=== PATIENT | male | born 1945 | race Two or more races ===

== ENCOUNTER 2022-10-08 08:37 | Outpatient (AMB) | payer OTHER, SELFPAY ==
--- NOTE | 2022-10-08 08:41 | A.OFFPC_ITS ---
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: No Accompanied by: Self / Same As Patient Allergies No Known Allergies Allergy (Verified 10/08/22 08:59) Medication List - Last Reconciled 10/08/22 by Ivonne Lee MD atorvastatin 20 mg PO DAILY candesartan 16 mg PO DAILY metformin ER 250 mg PO QPM nifedipine ER 30 mg PO DAILY polyethylene glycol 3350 (Gavilax) 17 grams PO DAILY PRN timolol maleate 0.5% 1 drp ophthalmic (eye) BID Tobacco use date assessed: 10/08/22 Fall risk assessment: No Falls in past year Last assessed Fall Risk: 10/08/22 Dental Screening Dental Screen Date: 10/08/22 Did you have a dental visit in the last 12 months?: Yes Did you have a dental problem in the last 6 months where you did not have access to dental care?: No Was dental information given to patient?: Patient has dentist HPI HPI Comments History of Present Illness Details This is a 77-year-old male with diabetes mellitus type 2, hypertension, hyperlipidemia and constipation that comes today to establish care. A1c within goal. Blood pressure stable. Lipid panel will be order and his LDL goal should be less than 70. Constipation well control with MiraLax as needed. Has mild major depression aggravated by taking care of his who has dementia. I will start him on sertraline and refer him to counseling. Has history of colon cancer few years ago that was stage III and has appointment with Gastroenterology at [facility] in a few months for this matter. Has renal calculi follow by Urology. [facility] Surgical History (Updated 10/08/22 @ 09:16 by Ivonne Lee MD) H/O lithotripsy History of knee surgery History of tonsillectomy Family History Father Cancer Mother Alzheimer disease Family/Other Mental health disorder Social History (Updated 10/08/22 @ 09:06 by Ivonne Lee MD) Housing: Apartment Alcohol intake: former Patient Tobacco Use Status: Never used Tobacco e-Cigarette/Vaping Use: Never Used Second Hand Smoke Exposure: No service: No Current occupational status: unemployed Cognitive needs: No Hearing needs: No Vision needs: No Questionnaire PHQ-9 Over the last 2 weeks, how often have you been bothered by any of the following problems? 1. Little interest or pleasure in doing things: not at all 2. Feeling down, depressed, or hopeless: more than half the days 3. Trouble falling or staying asleep, or sleeping too much: several days 4. Feeling tired or having little energy: not at all 5. Poor appetite or overeating: not at all 6. Feeling bad about yourself - or that you are a failure or have let yourself or your family down: not at all 7. Trouble concentrating on things, such as reading the newspaper or watching television: not at all 8. Moving or speaking so slowly that other people could have noticed. Or the opposite - being so fidgety or restless that you have been moving around a lot more than usual: several days 9. Thoughts that you would be better off or of hurting yourself in some way: not at all Total score: 4 Depression Screening Interpretation: Positive Depression Screening Follow-up: Ex isting condition 96274 - PHQ-9 Billing: Yes Source: Developed by Drs. Trip Mcgee, Talia Valenzuela, Ham Dove and colleagues, with an educational laurie from [employer]. Thrive Questionnaire Date Thrive assessed: 10/08/22 I am a: Patient What is your living situation today?: I have a steady place to live Within the past 12 months, did the food you bought not last and you didn't have the money to get more?: Never true Within the past 12 months, did you worry whether your food would run out before you got money to buy more?: Never true Do you have trouble paying for medicines?: No Do you have trouble getting transportation to medical appointments?: No Do you have trouble paying your heating and electricity bill?: No Do you have trouble taking care of your child, family member or friend?: No Do you have trouble with day-to-day activities such as bathing, preparing meals, shopping, managing finances, etc.?: No Are you currently unemployed and looking for a job?: No Are you interested in more education?: No Please select the resources that you would like help with: None Currently or been in a relationship where the following occur: no concerns reported AUDIT C Alcohol Use Questionnaire (AUDIT-C) 1. How often do you have a drink containing alcohol?: Never Total Score: 0 MARLIN-7 AMB Questionnaire MARLIN-7 Date MARLIN - 7 assessed: 10/08/22 Feeling nervous, anxious, or on edge: 2 = More than half the days Not being able to stop or control worryin = Not at all Worrying too much about different things: 2 = More than half the days Trouble relaxin = Not at all Being so restless that it is hard to sit still: 0 = Not at all Becoming easily annoyed or irritable: 0 = Not at all Feeling afraid as if something awful might happen: 0 = Not at all Total MARLIN-7 score (0-4 normal; 5-9 mild; 10-14 moderate; 15-21 severe): 4 Source: Developed by Drs. Trip Mcgee, Talia Valenzuela, Ham Dove and colleagues, with an educational laurie from [employer]. MARLIN-7 Assessment Billing MARLIN-7 Assessment Tool: MARLIN-7 Assessment 96157 Review of Systems Const All systems reviewed & are unremarkable except as noted in HPI and below Eyes Reports no additional complaints, Denies change in vision and Denies other visual disturbances Card Denies chest pain at rest, Denies chest pain with activity, Denies edema, Denies irregular heart rhythm, Denies claudication, Reports leg edema, Denies dyspnea, Denies dyspnea on exertion, Denies orthopnea, Denies paroxysmal nocturnal dyspnea and Denies slow heart rate Resp Denies cough, Denies dyspnea and Denies dyspnea on exertion GI Denies abdominal pain, Denies change in bowel habits, Reports constipation, Denies excessive flatus, Denies nausea and Denies vomiting Denies urinary hesitancy, Denies urinary incontinence and Denies urinary urgency Musc Denies abnormal gait, Denies atrophy, Denies deformity and Denies limited range of motion Skin/Breast Denies bleeding lesions, Denies changing lesions and Denies rash Neuro Denies abnormal gait and Denies lack of coordination Physical exam (Primary Care) Vital Signs: Last Vital Signs BP 132/80 10/08/22 08:45 BMI result Body Mass Index 28.6 Tobacco/Smoking Status: Tobacco use Status Tobacco use date assessed 10/08/22 10/08/22 08:56 Patient Tobacco Use Status Never used Tobacco 10/08/22 09:06 e-Cigarette/Vaping Use Never Used 10/08/22 09:06 PHQ-9: PHQ-9 Score PHQ-9: Total score 4 10/08/22 09:09 Depression Screening Interpretation: Positive Depression Screening Follow-up: Existing condition Thrive Assessment: Date of Thrive Assessment Date Thrive assessed 10/08/22 10/08/22 08:56 Currently or been in a relationship where the following occur: no concerns reported Eyes General: appearance normal, both eyes and all related structures Eyelids: Yes eyelids normal Conjunctivae: conjunctivae normal Neck Neck: Yes normal visual inspection and Yes supple Resp Effort & Inspection: normal respiratory effort Auscultation: clear to auscultation bilaterally Cardio Jugular venous distension: no JVD Rate: regular rate Rhythm: regular rhythm Heart sounds: S1 normal heart sound present and S2 normal heart sound present Extrem General: Yes full ROM Results AMB Hemoglobin A1c AMB Hemoglobin A1c 6.5 % Last Edit by ZITA Goss on 10/08/22 09:1 2 Results Reviewed Results Reviewed: Laboratory Last Values Hgb A1c (Clinic) 6.5 % (4.0-6.0) H 10/08/22 09:09 Assessment and Plan Assessment & Plan (1) Diabetes mellitus: Code(s): E11.9 - Type 2 diabetes mellitus without complications Plan: Continue Metformin. A1c goal is equal or less than 7%. (2) Essential hypertension: Code(s): I10 - Essential (primary) hypertension Plan: Continue nifedipine and candesartan. Blood pressure goal is equal or less than 130/80 (3) Hyperlipidemia LDL goal <70: Code(s): E78.5 - Hyperlipidemia, unspecified Plan: Continue statins. LDL goal is less than 70. (4) Chronic idiopathic constipation: Code(s): K59.04 - Chronic idiopathic constipation Plan: Continue MiraLax as needed. (5) Mild major depression: Code(s): F32.0 - Major depressive disorder, single episode, mild Plan: Referred to counseling. Start sertraline. Orders: Orders Comprehensive [place]. Panel Fast Today E11.9 - Type 2 diabetes mellitus without complications Lipid Panel Today E78.5 - Hyperlipidemia, unspecified Thyroid Stimulating Hormone Today K59.04 - Chronic idiopathic constipation Microalbumin, Random (w Creat) Today E11.9 - Type 2 diabetes mellitus without complications Complete Blood Count Auto Diff Today K59.04 - Chronic idiopathic constipation AMB Hemoglobin A1c Today E11.9 - Type 2 diabetes mellitus without complications Referrals Counseling Referral F32.0 - Major depressive disorder, single episode, mild Gastroenterology Referral Z85.038 - Personal history of other malignant neoplasm of large intestine Medications: New sertraline 25 mg PO DAILY 90 tabs 0RF 90 days F32.0 - Major depressive disorder, single episode, mild Coding Level of Care Code New Pt Level 4 (31686) Diagnoses Diabetes mellitus E11.9 Essential hypertension I10 Hyperlipidemia LDL goal <70 E78.5 Chronic idiopathic constipation K59.04 Mild major depression F32.0 Additional Codes MARLIN-7 Assessment Billing - MARLIN-7 Assessment Tool: MARLIN-7 Assessment 67075 ([id number]) Time Spent (min) 26
[2022-10-08 08:45] VITALS: BP 132/80; BMI 28.6
== END 2022-10-08 09:29 | disposition home or self-care (01) ==
PROVIDERS: Visit Provider Internal Medicine
DX: E11.9 Type 2 diabetes mellitus without complications (principal); I10 Essential (primary) hypertension; E78.5 Hyperlipidemia, unspecified; K59.04 Chronic idiopathic constipation; F32.0 Major depressive disorder, single episode, mild
CPT/HCPCS: 83036; 96127; 99204

== ENCOUNTER 2022-10-08 09:52 | Outpatient (REF) | payer OTHER, SELFPAY ==
[2022-10-08 10:14] LABS: MANUAL DIFF FLAG NO
[2022-10-08 10:43] LABS: Basophils Absolute Auto 0.1 X10*3/uL (0.0-0.2); Basophils Percent Auto 0.9 % (0-2); Eosinophils Absolute Auto 0.4 X10*3/uL (0.0-0.4); Eosinophils Percent Auto 7.9 % (0-4); Hematocrit 39.9 % (42.0-52.0); Hemoglobin 13.6 g/dl (14.0-18.0); Imm Gran Abs Auto 0.03 X10*3/uL (0.00-0.03); Imm Gran Pct Auto 0.6 % (0.0-0.4); Lymphocytes Absolute Auto 0.9 X10*3/uL (1.2-4.9); Lymphocytes Percent Auto 16.3 % (20-40); Mean Corpuscular HGB Conc 34.1 g/dl (31.0-36.0); Mean Corpuscular Hemoglobin 32.3 pg (27.0-33.0); Mean Corpuscular Volume 94.8 fL (80.0-98.0); Mean Platelet Volume 10.9 fL (9.4-12.4); Monocytes Absolute Auto 0.6 X10*3/uL (0.1-1.2); Monocytes Percent Auto 10.8 % (2-11); Neutrophils Absolute Auto 3.4 x10*3/uL (2.0-8.3); Neutrophils Percent Auto 63.5 % (45-73); Platelet Count 173 X10*3/uL (160-400); Red Blood Count 4.21 X10*6/uL (4.60-5.80); Red Cell Distribution Width 12.9 % (11.0-16.0); White Blood Count 5.3 X10*3/uL (4.8-10.8)
[2022-10-08 11:36] LABS: Alanine Aminotransferase 16 U/L (0-40); Albumin Level 4.2 g/dL (3.5-5.0); Alkaline Phosphatase 72 U/L (39-117); Anion Gap 15 (12-20); Aspartate Amino Transferase 15 U/L (5-37); Bilirubin Total 0.9 mg/dL (0.0-1.0); Blood Urea Nitrogen 16 mg/dL (9-16); Calcium 9.2 mg/dL (8.4-10.2); Carbon Dioxide 23 mmol/L (22-29); Chloride 105 mmol/L (96-108); Cholesterol 135 mg/dL; Estimated Glomerular Filt Rate > 60; Glucose Fasting 235 mg/dL (60-99); HDL Cholesterol 48 mg/dL; LDL Cholesterol Calculated 68 mg/dl; Potassium 3.7 mmol/L (3.3-5.1); Sodium 139 mmol/L (135-145); Total Protein 7.4 g/dL (6.5-8.0); Triglycerides 96 mg/dL
[2022-10-08 11:44] LABS: Thyroid Stimulating Hormone 0.62 uIU/mL (0.32-4.0)
[2022-10-08 12:56] LABS: Creatinine Urine 70.72 mg/dL; Microalbum/Creatinine Ratio Ur 74.9 ug/mg cr
== END 2022-10-08 09:53 | disposition home or self-care (01) ==
LOC: HO.LAB 09:52
PROVIDERS: PCP Internal Medicine; Visit Provider Internal Medicine
DX: K59.04 Chronic idiopathic constipation (principal); E78.5 Hyperlipidemia, unspecified; E11.9 Type 2 diabetes mellitus without complications
CPT/HCPCS: 36415; 80053; 80061; 82043; 84443; 85025

== ENCOUNTER 2022-12-12 10:35 | Outpatient (AMB) | payer OTHER, SELFPAY ==
[2022-12-12 10:36] VITALS: BP 124/70; PULSE 85; O2SAT 98; BMI 27.9
--- NOTE | 2022-12-12 10:36 | MHC.PC.OV ---
Vital Signs 12/12/22 10:36 Height 5 ft 10.8 in Weight 199 lb BMI 27.9 BP 124/70 Blood Pressure Location Lt brachial Position Sitting Pulse 85 Pulse Source Pulse Oximeter Pulse Oximetry (%) 98 Oxygen Delivery Method Room Air Intake Visit Reasons: cataract surgery on right eye on 12/17 Ext Js Developer Required: No Affiliate Marketing Coordinator: Not Required per policy Accompanied by: Self / Same As Patient Allergies No Known Allergies Allergy (Verified 12/12/22 10:42) Medication List - Last Reconciled 12/12/22 by Castillo Matos MD atorvastatin 20 mg PO DAILY candesartan 16 mg PO DAILY metformin ER 500 mg PO DAILY 90 days nifedipine ER 30 mg PO DAILY polyethylene glycol 3350 (Gavilax) 17 grams PO DAILY PRN sertraline 25 mg PO DAILY 90 days timolol maleate 0.5% 1 drp ophthalmic (eye) BID Tobacco use date assessed: 10/08/22 Fall risk assessment: No Falls in past year Last assessed Fall Risk: 12/12/22 Dental Screening Dental Screen Date: 12/12/22 Did you have a dental visit in the last 12 months?: Yes Did you have a dental problem in the last 6 months where you did not have access to dental care?: No Was dental information given to patient?: Patient has dentist HPI cataract surgery on right eye on 12/17 HPI Details Having bilat cataracts repaired in the next 30 days;has DM hyperlipidemia and depression all controlled; no history of CAD PFSH Surgical History H/O lithotripsy History of tonsillectomy History of knee surgery Family History Father Cancer Mother Alzheimer disease Family/Other Mental health disorder Social History Housing: Apartment Alcohol intake: former Patient Tobacco Use Status: Never used Tobacco e-Cigarette/Vaping Use: Never Used Second Hand Smoke Exposure: No service: No Current occupational status: unemployed Cognitive needs: No Hearing needs: No Vision needs: No Questionnaire PHQ-9 Over the last 2 weeks, how often have you been bothered by any of the following problems? 1. Little interest or pleasure in doing things: not at all 2. Feeling down, depressed, or hopeless: more than half the days 3. Trouble falling or staying asleep, or sleeping too much: several days 4. Feeling tired or having little energy: not at all 5. Poor appetite or overeating: not at all 6. Feeling bad about yourself - or that you are a failure or have let yourself or your family down: not at all 7. Trouble concentrating on things, such as reading the newspaper or watching television: not at all 8. Moving or speaking so slowly that other people could have noticed. Or the opposite - being so fidgety or restless that you have been moving around a lot more than usual: several days 9. Thoughts that you would be better off or of hurting yourself in some way: not at all Total score: 4 Depression Screening Interpretation: Positive Depression Screening Follow-up: Existing condition 05427 - PHQ-9 Billing: Yes Source: Developed by Drs. Trip Mcgee, Talia Valenzuela, Ham Dove and colleagues, with an educational laurie from [employer]. Thrive Questionnaire Date Thrive assessed: 10/08/22 AUDIT C Alcohol Use Questionnaire (AUDIT-C) 1. How often do you have a drink containing alcohol?: Never Total Score: 0 MARLIN-7 AMB Questionnaire MARLIN-7 Date MARLIN - 7 assessed: 10/08/22 Source: Developed by Drs. Trip Mcgee, Talia Valenzuela, Ham Dove and colleagues, with an educational laurie from [employer]. Review of Systems Const Denies chills, Denies fatigue, Denies headache(s) and Denies weight loss Eyes Denies change in vision, Denies diplopia and Denies eye pain ENT Denies vertigo, Denies dizziness, Denies headache(s) and Denies nasal discharge Card Denies chest pain, Denies rapid heart rate and Denies dyspnea on exertion Resp Denies chest congestion, Denies cough, Denies pain with cough and Denies dyspnea on exertion GI Denies abdominal pain, Denies hematochezia and Denies change in bowel habits Musc Denies myalgias, Denies arthralgias and Denies joint swelling Skin/Breast Denies lesions and Denies unusual bruising Neuro Denies vertigo, Denies dizziness, Denies headache(s) and Denies focal weakness Endo Denies fatigue Physical exam (Primary Care) Vital Signs: Last Vital Signs Pulse 85 12/12/22 10:36 BP 124/70 12/12/22 10:36 Pulse Ox 98 12/12/22 10:36 Oxygen Delivery Method Room Air 12/12/22 10:36 BMI result Body Mass Index 27.9 Tobacco/Smoking Status: Tobacco use Status Tobacco use date assessed 10/08/22 12/12/22 10:40 Patient Tobacco Use Status Never used Tobacco 12/12/22 10:40 e-Cigarette/Vaping Use Never Used 12/12/22 10:40 PHQ-9: PHQ-9 Score PHQ-9: Total score 4 12/12/22 10:47 Depression Screening Interpretation: Positive Depression Screening Follow-up: Existing condition Thrive Assessment: Date of Thrive Assessment Date Thrive assessed 10/08/22 12/12/22 10:40 Const General: cooperative, healthy appearing and no acute distress Orientation/consciousness: oriented to person, oriented to place and oriented to time HENMT Head: Yes normal to inspection, Yes normocephalic and Yes atraumatic Mouth: Normal oral and palatal mucosa present and tongue normal Throat: Yes posterior oropharynx normal and Yes uvula midline Eyes General: appearance normal, both eyes and all related structures Neck Neck: Yes normal visual inspection, Yes full ROM and Yes no lymphadenopathy Thyroid: Thyroid normal Carotids: normal carotid upstroke Chest Chest palpation & inspection: normal inspection of the chest Resp Effort & Inspection: normal respiratory effort and able to speak in complete sentences Auscultation: clear to auscultation bilaterally Cardio Jugular venous distension: no JVD Palpation: normal PMI Rate: regular rate Rhythm: regular rhythm Heart sounds: S1 normal heart sound present and S2 normal heart sound present GI Inspection: Yes normal to inspection Palpation (GI): Soft to palpation and No hepatosplenomegaly present Auscultation: normal bowel sounds General: Yes no CVA tenderness Back/Spine/Pelvis Back: no CVA tenderness Skin General skin exam: no rashes or lesions noted Neuro General: oriented to person, oriented to place and oriented to time Extrem General: Yes normal to inspection and Yes full ROM Assessment and Plan Assessment & Plan (1) Preop exam for internal medicine: Code(s): Z01.818 - Encounter for other preprocedural examination Plan: low risk for cardiovascular complications; cleared for surgery (2) Mild major depression: Code(s): F32.0 - Major depressive disorder, single episode, mild Plan: stable; same rx (3) Diabetes mellitus: Code(s): E11.9 - Type 2 diabetes mellitus without complications Plan: stable; same rx (4) Hyperlipidemia LDL goal <70: Code(s): E78.5 - Hyperlipidemia, unspecified Plan: stable; same rx Coding Level of Care Code Est Pt Level 4 (28484) Diagnoses Preop exam for internal medicine Z01.818 Mild major depression F32.0 Diabetes mellitus E11.9 Hyperlipidemia LDL goal <70 E78.5
== END 2022-12-12 10:55 | disposition home or self-care (01) ==
PROVIDERS: PCP Internal Medicine; Visit Provider Internal Medicine
DX: Z01.818 Encounter for other preprocedural examination (principal); F32.0 Major depressive disorder, single episode, mild; E11.9 Type 2 diabetes mellitus without complications; E78.5 Hyperlipidemia, unspecified
CPT/HCPCS: 99214

== ENCOUNTER 2023-02-17 07:52 | Outpatient (REF) | payer OTHER, SELFPAY ==
[2023-02-17 08:11] LABS: MANUAL DIFF FLAG NO
[2023-02-17 08:32] LABS: Basophils Absolute Auto 0.1 X10*3/uL (0.0-0.2); Basophils Percent Auto 1.3 % (0-2); Eosinophils Absolute Auto 0.5 X10*3/uL (0.0-0.4); Eosinophils Percent Auto 9.5 % (0-4); Hematocrit 40.3 % (42.0-52.0); Hemoglobin 13.9 g/dl (14.0-18.0); Imm Gran Abs Auto 0.03 X10*3/uL (0.00-0.03); Imm Gran Pct Auto 0.5 % (0.0-0.4); Lymphocytes Absolute Auto 0.8 X10*3/uL (1.2-4.9); Lymphocytes Percent Auto 14.1 % (20-40); Mean Corpuscular HGB Conc 34.5 g/dl (31.0-36.0); Mean Corpuscular Hemoglobin 33.3 pg (27.0-33.0); Mean Corpuscular Volume 96.4 fL (80.0-98.0); Mean Platelet Volume 10.7 fL (9.4-12.4); Monocytes Absolute Auto 0.5 X10*3/uL (0.1-1.2); Monocytes Percent Auto 9.7 % (2-11); Neutrophils Absolute Auto 3.6 x10*3/uL (2.0-8.3); Neutrophils Percent Auto 64.9 % (45-73); Platelet Count 180 X10*3/uL (160-400); Red Blood Count 4.18 X10*6/uL (4.60-5.80); Red Cell Distribution Width 13.2 % (11.0-16.0); White Blood Count 5.5 X10*3/uL (4.8-10.8)
[2023-02-17 08:59] LABS: Alanine Aminotransferase 16 U/L (0-40); Albumin Level 4.3 g/dL (3.5-5.0); Alkaline Phosphatase 61 U/L (39-117); Anion Gap 10 (12-20); Aspartate Amino Transferase 15 U/L (5-37); Bilirubin Total 0.5 mg/dL (0.0-1.0); Blood Urea Nitrogen 14 mg/dL (9-16); Calcium 8.8 mg/dL (8.4-10.2); Carbon Dioxide 28 mmol/L (22-29); Chloride 105 mmol/L (96-108); Estimated Glomerular Filt Rate > 60; Glucose Fasting 183 mg/dL (60-99); Iron 84 mcg/dL (45-160); Percent Iron Saturation 30 % (15-50); Potassium 3.8 mmol/L (3.3-5.1); Sodium 139 mmol/L (135-145); Total Iron Binding Capacity 281 mcg/dL (228-428); Total Protein 7.3 g/dL (6.5-8.0); Unsaturated Iron Binding 197 ug/dL
== END 2023-02-17 07:53 | disposition home or self-care (01) ==
LOC: HO.LAB 07:52
PROVIDERS: PCP Internal Medicine; Visit Provider Internal Medicine
DX: D64.9 Anemia, unspecified (principal); R30.0 Dysuria; E11.9 Type 2 diabetes mellitus without complications
CPT/HCPCS: 36415; 80053; 83540; 85025; 87086

== ENCOUNTER 2023-02-18 08:32 | Outpatient (AMB) | payer OTHER, SELFPAY ==
[2023-02-18 08:37] VITALS: BP 126/70; BMI 27.9
--- NOTE | 2023-02-18 08:37 | A.OFFPC_ITS ---
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 Accompanied by: Self / Same As Patient Allergies No Known Allergies Allergy (Verified 02/18/23 08:54) Medication List - Last Reconciled 02/18/23 by Ivonne Lee MD atorvastatin 20 mg PO DAILY candesartan 16 mg PO DAILY metformin ER 500 mg PO DAILY 90 days nifedipine ER 30 mg PO DAILY polyethylene glycol 3350 (Gavilax) 17 grams PO DAILY PRN sertraline 25 mg PO DAILY 90 days timolol maleate 0.5% 1 drp ophthalmic (eye) BID Tobacco use date assessed: 10/08/22 Fall risk assessment: No Falls in past year Last assessed Fall Risk: 02/18/23 Dental Screening Dental Screen Date: 02/18/23 Did you have a dental visit in the last 12 months?: Yes Did you have a dental problem in the last 6 months where you did not have access to dental care?: No Was dental information given to patient?: Patient has dentist HPI HPI Comments History of Present Illness Details This is a 77-year-old male with mild major depression and diabetes mellitus type 2 that comes for his physical exam. Depression stable with SSRIs. A1c elevated today and I will increase metformin to twice a day. LDL within goal. Last colonoscopy as per patient was over 10 years ago when he was diagnosed with colon cancer in which cancer was removed by colonoscopy. He or a saw [facility] in November and a will repeat colonoscopy in 2023. No chest pain or shortness of breath. [facility] Surgical History (Updated 02/18/23 @ 09:00 by Ivonne Lee MD) Cataract H/O lithotripsy History of tonsillectomy History of knee surgery Family History Father Cancer Mother Alzheimer disease Family/Other Mental health disorder Housing: Apartment Alcohol intake: former Patient Tobacco Use Status: Never used Tobacco e-Cigarette/Vaping Use: Never Used Second Hand Smoke Exposure: No service: No Current occupational status: unemployed Cognitive needs: No Hearing needs: No Vision needs: No Questionnaire Thrive Questionnaire Date Thrive assessed: 10/08/22 MARLIN-7 AMB Questionnaire MARLIN-7 Date MARLIN - 7 assessed: 10/08/22 Source: Developed by Drs. Trip Mcgee, Talia Valenzuela, Ham Dove and colleagues, with an educational laurie from [employer]. Review of Systems Const All systems reviewed & are unremarkable except as noted in HPI and below Eyes Reports no additional complaints, Denies change in vision and Denies other visual disturbances Card Denies chest pain at rest, Denies chest pain with activity, Denies edema, Denies irregular heart rhythm, Denies claudication, Denies dyspnea, Denies dyspnea on exertion, Denies orthopnea, Denies paroxysmal nocturnal dyspnea and Denies slow heart rate Resp Denies cough, Denies dyspnea and Denies dyspnea on exertion GI Denies abdominal pain, Denies change in bowel habits, Denies excessive flatus, Denies nausea and Denies vomiting Denies urinary hesitancy, Denies urinary incontinence and Denies urinary urgency Musc Denies abnormal gait, Denies atrophy, Denies deformity and Denies limited range of motion Skin/Breast Denies bleeding lesions, Denies changing lesions and Denies rash Neuro Denies abnormal gait and Denies lack of coordination Physical exam (Primary Care) Vital Signs: Last Vital Signs BP 126/70 02/18/23 08:37 BMI result Body Mass Index 27.9 Tobacco/Smoking Status: Tobacco use Status Tobacco use date assessed 10/08/22 02/18/23 08:44 Patient Tobacco Use Status Never used Tobacco 02/18/23 08:44 e-Cigarette/Vaping Use Never Used 02/18/23 08:44 Thrive Assessment: Date of Thrive Assessment Date Thrive assessed 10/08/22 02/18/23 08:44 Const Orientation/consciousness: patient oriented x3 HENMT Head: Yes normal to inspection, Yes normocephalic and Yes atraumatic Ears: external ears normal Eyes General: appearance normal, both eyes and all related structures Eyelids: Yes eyelids normal Conjunctivae: conjunctivae normal Neck Neck: Yes normal visual inspection and Yes supple Resp Effort & Inspection: normal respiratory effort Auscultation: clear to auscultation bilaterally Cardio Jugular venous distension: no JVD Rate: regular rate Rhythm: regular rhythm Heart sounds: S1 normal heart sound present and S2 normal heart sound present GI Inspection: Yes normal to inspection Palpation (GI): Soft to palpation and nontender Auscultation: normal bowel sounds Skin General skin exam: no rashes or lesions noted Neuro General: patient oriented x3 and no focal motor deficits Extrem General: Yes full ROM Psych Appearance: grossly normal Results AMB Hemoglobin A1c AMB Hemoglobin A1c 7.3 % Last Edit by ZITA Goss on 02/18/23 08:5 7 Results Reviewed Results Reviewed: Laboratory Last Values Hgb A1c (Clinic) 7.3 % (4.0-6.0) H 02/18/23 08:52 Assessment and Plan Assessment & Plan (1) Physical exam: Code(s): Z00.00 - Encounter for general adult medical examination without abnormal findings Plan: Repeat in a year. (2) Diabetes mellitus: Code(s): E11.9 - Type 2 diabetes mellitus without complications Qualifiers: Diabetes mellitus complication status: without complication Diabetes mellitus intermediate accountant insulin use: without chcf use Diabetes mellitus type: type 2 Qualified Code(s): E11.9 - Type 2 diabetes mellitus without complications Plan: Increase Metformin to twice a day. A1c goal is less than 7 %. (3) Mild major depression: Code(s): F32.0 - Major depressive disorder, single episode, mild Plan: Continue Sertraline. Orders: Orders 2 Microalbumin, Random (w Creat) 4 Months E11.9 - Type 2 diabetes mellitus without complications AMB Hemoglobin A1c Today E11.9 - Type 2 diabetes mellitus without complications Lipid Panel 4 Months E78.5 - Hyperlipidemia, unspecified Comprehensive [place]. Panel Fast 4 Months E11.9 - Type 2 diabetes mellitus without complications Medications: Changed From metformin ER 500 mg PO DAILY 90 days 90 tabs 1RF E11.9 - Type 2 diabetes mellitus without complications To metformin ER 500 mg PO BID 180 tabs 2RF 90 days E11.9 - Type 2 diabetes mellitus without complications Coding Level of Care Code Est Pt Prev Care >65y(83208) Diagnoses Physical exam Z00.00 Type 2 diabetes mellitus without complication, without long-term current use of insulin E11.9 Diabetes mellitus complication status: without complication Diabetes mellitus intermediate accountant insulin use: without chcf use Diabetes mellitus type: type 2 Mild major depression F32.0 Time Spent (min) 36
== END 2023-02-18 09:20 | disposition home or self-care (01) ==
PROVIDERS: PCP Internal Medicine; Visit Provider Internal Medicine
DX: Z00.00 Encounter for general adult medical examination without abnormal findings (principal); E11.9 Type 2 diabetes mellitus without complications; F32.0 Major depressive disorder, single episode, mild
CPT/HCPCS: 83036; 99397

== ENCOUNTER 2023-06-05 10:00 | Outpatient (REF) | payer OTHER, SELFPAY ==
[2023-06-05 12:20] LABS: Alanine Aminotransferase 15 U/L (0-40); Albumin Level 4.3 g/dL (3.5-5.0); Alkaline Phosphatase 64 U/L (39-117); Anion Gap 13 (12-20); Aspartate Amino Transferase 14 U/L (5-37); Blood Urea Nitrogen 17 mg/dL (9-16); Calcium 9.2 mg/dL (8.4-10.2); Carbon Dioxide 27 mmol/L (22-29); Chloride 104 mmol/L (96-108); Cholesterol 135 mg/dL (<200); Estimated Glomerular Filt Rate > 60; Glucose Fasting 185 mg/dL (60-99); HDL Cholesterol 49 mg/dL (>40); LDL Cholesterol Calculated 71 mg/dL (<100); Potassium 3.6 mmol/L (3.3-5.1); Sodium 140 mmol/L (135-145); Total Protein 7.4 g/dL (6.5-8.0); Triglycerides 79 mg/dL (<150)
[2023-06-05 12:29] LABS: Creatinine Urine 328.57 mg/dL; Microalbum/Creatinine Ratio Ur 36.8 ug/mg cr (<30)
== END 2023-06-05 10:01 | disposition home or self-care (01) ==
LOC: HO.LAB 10:00
PROVIDERS: PCP Internal Medicine; Visit Provider Internal Medicine
DX: E11.9 Type 2 diabetes mellitus without complications (principal); E78.5 Hyperlipidemia, unspecified
CPT/HCPCS: 36415; 80053; 80061; 82043; 82570

== ENCOUNTER 2023-06-30 10:36 | Outpatient (AMB) | payer OTHER, SELFPAY ==
--- NOTE | 2023-06-30 10:40 | A.OFFPC_ITS ---
Vital Signs 06/30/23 10:41 06/30/23 11:55 Height 5 ft 10.8 in Weight 202 lb BMI 28.3 BP 164/98 H 160/90 H Blood Pressure Location Lt brachial Lt brachial Position Sitting Sitting Intake Visit Reasons: dm NEEDS 30 MINUTES Intake Note: Patient here for a follow up DM [employer] Required: No Accompanied by: Self / Same As Patient Allergies No Known Allergies Allergy (Verified 06/30/23 11:03) Medication List - Last Reconciled 06/30/23 by Ivonne Lee MD atorvastatin 20 mg PO DAILY 90 days candesartan 16 mg PO DAILY 90 days metformin ER 500 mg PO BID 90 days nifedipine ER 30 mg PO DAILY 90 days polyethylene glycol 3350 (Gavilax) 17 grams PO DAILY PRN sertraline 25 mg PO DAILY 90 days timolol maleate 0.5% 1 drp ophthalmic (eye) BID Tobacco use date assessed: 06/30/23 Fall risk assessment: No Falls in past year Last assessed Fall Risk: 06/30/23 Dental Screening Dental Screen Date: 06/30/23 Did you have a dental visit in the last 12 months?: Yes Did you have a dental problem in the last 6 months where you did not have access to dental care?: No Was dental information given to patient?: Patient has dentist HPI HPI Comments History of Present Illness Details This is a 77-year-old male with diabetes mellitus type 2, hypertension, hyperlipidemia, mild major depression and chronic idiopathic constipation that comes today for follow-up on his conditions. A1c has improved. Blood pressure elevated and will be recheck by nurse navigator in 3 weeks. LDL very close to goal. Depression stable with sertraline. Constipation improved with MiraLax as needed. Denies any chest pain or shortness of breath. Sees Urology for benign prostatic hyperplasia. Compliant with medications. PFSH Surgical History Cataract H/O lithotripsy History of tonsillectomy History of knee surgery Family History Father Cancer Mother Alzheimer disease Family/Other Mental health disorder Social History Housing: Apartment Alcohol intake: current Alcohol intake frequency: holidays/special occasions only Alcohol type: wine Patient Tobacco Use Status: Never used Tobacco e-Cigarette/Vaping Use: Never Used Second Hand Smoke Exposure: No service: No Current occupational status: unemployed Cognitive needs: No Hearing needs: No Vision needs: No Questionnaire PHQ-9 Over the last 2 weeks, how often have you been bothered by any of the following problems? 1. Little interest or pleasure in doing things: several days 2. Feeling down, depressed, or hopeless: several days 3. Trouble falling or staying asleep, or sleeping too much: not at all 4. Feeling tired or having little energy: several days 5. Poor appetite or overeating: not at all 6. Feeling bad about yourself - or that you are a failure or have let yourself or your family down: not at all 7. Trouble concentrating on things, such as reading the newspaper or watching television: not at all 8. Moving or speaking so slowly that other people could have noticed. Or the opposite - being so fidgety or restless that you have been moving around a lot more than usual: not at all 9. Thoughts that you would be better off or of hurting yourself in some way: not at all Total score: 3 Depression Screening Interpretation: Positive Depression Screening Follow-up: Existing condition and In treatment Depression Screening Done: Yes 28681 - PHQ-9 Billing: Yes Source: Developed by Drs. Trip Mcgee, Talia Valenzuela, Ham Dove and colleagues, with an educational laurie from [employer]. Thrive Questionnaire Date Thrive assessed: 06/30/23 I am a: Patient What is your living situation today?: I have a steady place to live Within the past 12 months, did the food you bought not last and you didn't have the money to get more?: Never true Within the past 12 months, did you worry whether your food would run out before you got money to buy more?: Never true Do you have trouble paying for medicines?: No Do you have trouble getting transportation to medical appointments?: No Do you have trouble paying your heating and electricity bill?: No Do you have trouble taking care of your child, family member or friend?: No Do you have trouble with day-to-day activities such as bathing, preparing meals, shopping, managing finances, etc.?: Yes Are you currently unemployed and looking for a job?: No Are you interested in more education?: No Please select the resources that you would like help with: None Currently or been in a relationship where the following occur: no concerns reported THRIVE Score: 0 AUDIT C Alcohol Use Questionnaire (AUDIT-C) 1. How often do you have a drink containing alcohol?: Monthly or less 2. How many drinks containing alcohol do you have on a typical day when you are drinking?: 1 or 2 3. How often do you have six or more drinks on one occasion?: Never Total Score: 1 Score Reviewed/Action Taken: No MARLIN-7 AMB Questionnaire MARLIN-7 Date MARLIN - 7 assessed: 06/30/23 Feeling nervous, anxious, or on edge: 2 = More than half the days Not being able to stop or control worryin = Not at all Worrying too much about different things: 2 = More than half the days Trouble relaxin = Several days Being so restless that it is hard to sit still: 2 = More than half the days Becoming easily annoyed or irritable: 0 = Not at all Feeling afraid as if something awful might happen: 0 = Not at all Total MARLIN-7 score (0-4 normal; 5-9 mild; 10-14 moderate; 15-21 severe): 7 Source: Developed by Drs. Trip Mcgee, Talia Valenzuela, Ham Dove and colleagues, with an educational laurie from [employer]. MARLIN-7 Assessment Billing MARLIN-7 Assessment Tool: MARLIN-7 Assessment 05123 Review of Systems Const All systems reviewed & are unremarkable except as noted in HPI and below Eyes Reports no additional complaints, Denies change in vision and Denies other visual disturbances Card Denies chest pain at rest, Denies chest pain with activity, Denies edema, Denies irregular heart rhythm, Denies claudication, Denies dyspnea, Denies dyspnea on exertion, Denies orthopnea, Denies paroxysmal nocturnal dyspnea and Denies slow heart rate Resp Denies cough, Denies dyspnea and Denies dyspnea on exertion GI Denies abdominal pain, Denies change in bowel habits, Denies excessive flatus, Denies nausea and Denies vomiting Denies urinary hesitancy, Denies urinary incontinence and Denies urinary urgency Physical exam (Primary Care) Vital Signs: Last Vital Signs BP 164/98 H 06/30/23 10:41 BMI result Body Mass Index 28.3 Tobacco/Smoking Status: Tobacco use Status Tobacco use date assessed 06/30/23 06/30/23 10:51 Patient Tobacco Use Status Never used Tobacco 06/30/23 10:51 e-Cigarette/Vaping Use Never Used 06/30/23 10:51 PHQ-9: PHQ-9 Score PHQ-9: Total score 3 06/30/23 11:07 Depression Screening Interpretation: Positive Depression Screening Follow-up: Existing condition and In treatment Thrive Assessment: Date of Thrive Assessment Date Thrive assessed 06/30/23 06/30/23 10:51 Currently or been in a relationship where the following occur: no concerns reported Resp Effort & Inspection: normal respiratory effort Auscultation: clear to auscultation bilaterally Cardio Jugular venous distension: no JVD Rate: regular rate Rhythm: regular rhythm Heart sounds: S1 normal heart sound present and S2 normal heart sound present Extrem General: Yes full ROM Results AMB Hemoglobin A1c AMB Hemoglobin A1c 7.1 % Last Edit by ZITA Goss on 06/30/23 10:5 1 Results Reviewed Results Reviewed: Laboratory Last Values Hgb A1c (Clinic) 7.1 % (4.0-6.0) H 06/30/23 10:40 Assessment and Plan Assessment & Plan (1) Diabetes mellitus: Code(s): E11.9 - Type 2 diabetes mellitus without complications Qualifiers: Diabetes mellitus type: type 2 Diabetes mellitus long term care phlebotomist insulin use: without long term care phlebotomist use Diabetes mellitus complication status: without complication Qualified Code(s): E11.9 - Type 2 diabetes mellitus without complications Plan: Continue metformin. A1c goal is equal or less than 7% (2) Mild major depression: Code(s): F32.0 - Major depressive disorder, single episode, mild Plan: Continue sertraline. (3) Essential hypertension: Code(s): I10 - Essential (primary) hypertension Plan: Continue candesartan and nifedipine. Blood pressure goal is equal or less than 130/80. (4) Hyperlipidemia LDL goal <70: Code(s): E78.5 - Hyperlipidemia, unspecified Plan: Continue statins. LDL goal is less than 70. (5) Chronic idiopathic constipation: Code(s): K59.04 - Chronic idiopathic constipation Plan: Continue MiraLax as needed. Orders: Orders Complete Blood Count Auto Diff 4 Months D64.9 - Anemia, unspecified Lipid Panel 4 Months E78.5 - Hyperlipidemia, unspecified Microalbumin, Random (w Creat) 4 Months E11.9 - Type 2 diabetes mellitus without complications AMB Hemoglobin A1c Today E11.9 - Type 2 diabetes mellitus without complications IRON PROFILE 4 Months D64.9 - Anemia, unspecified Comprehensive [place]. Panel Fast 4 Months E11.9 - Type 2 diabetes mellitus without complications Coding Level of Care Code Est Pt Level 4 (56086) Diagnoses Type 2 diabetes mellitus without complication, without long-term current use of insulin E11.9 Diabetes mellitus type: type 2 Diabetes mellitus long term care phlebotomist insulin use: without long term care phlebotomist use Diabetes mellitus complication status: without complication Mild major depression F32.0 Essential hypertension I10 Hyperlipidemia LDL goal <70 E78.5 Chronic idiopathic constipation K59.04 Additional Codes MARLIN-7 Assessment Billing - MARLIN-7 Assessment Tool: MARLIN-7 Assessment 99142 ([id number]) Time Spent (min) 25
[2023-06-30 10:41] VITALS: BP 164/98; BMI 28.3
[2023-06-30 11:55] VITALS: BP 160/90
== END 2023-06-30 11:16 | disposition home or self-care (01) ==
PROVIDERS: PCP Internal Medicine; Visit Provider Internal Medicine
DX: E11.9 Type 2 diabetes mellitus without complications (principal); F32.0 Major depressive disorder, single episode, mild; I10 Essential (primary) hypertension; E78.5 Hyperlipidemia, unspecified; K59.04 Chronic idiopathic constipation
CPT/HCPCS: 83036; 99214

== ENCOUNTER 2023-11-11 10:20 | Outpatient (AMB) | payer OTHER, SELFPAY ==
--- NOTE | 2023-11-11 10:24 | A.OFFPC_ITS ---
Vital Signs 11/11/23 10:25 11/11/23 11:03 Height 5 ft 10.8 in Weight 207 lb BMI 29.0 BP 144/80 H 145/80 H Blood Pressure Location Lt brachial Lt brachial Position Sitting Sitting Intake Visit Reasons: dm, needs 30 minutes Intake Note: Patient here for a follow up DM Hardware Sales Assistant Required: No Accompanied by: Self / Same As Patient Allergies No Known Allergies Allergy (Verified 11/11/23 10:43) Medication List - Last Reconciled 11/11/23 by Ivonne Lee MD atorvastatin 20 mg PO DAILY 90 days candesartan 16 mg PO DAILY 90 days metformin ER 500 mg PO BID 90 days nifedipine ER 30 mg PO DAILY 90 days polyethylene glycol 3350 (Gavilax) 17 grams PO DAILY PRN sertraline 25 mg PO DAILY 90 days timolol maleate 0.5% 1 drp ophthalmic (eye) BID Tobacco use date assessed: 06/30/23 Fall risk assessment: No Falls in past year Last assessed Fall Risk: 11/11/23 Dental Screening Dental Screen Date: 06/30/23 HPI HPI Comments History of Present Illness Details This is a 78-year-old male with diabetes mellitus type 2, hypertension, hyperlipidemia and mild major depression that comes today complaining of soy ateral ear discomfort and I will refer him to ENT. A1c elevated and I will add Jardiance. Blood pressure elevated and I will increase candesartan. Blood pressure will be recheck in 3 weeks by nurse navigator. Blood pressure goal is equal or less than 130/80. On statins for hyperlipidemia and his LDL goal should be less than 70. Lipid panel will be ordered. Depression stable with sertraline. Denies any chest pain or shortness on breath. [facility] Surgical History Cataract H/O lithotripsy History of tonsillectomy History of knee surgery Family History Father Cancer Mother Alzheimer disease Family/Other Mental health disorder Social History Housing: Apartment Alcohol intake: current Alcohol intake frequency: holidays/special occasions only Alcohol type: wine Patient Tobacco Use Status: Never used Tobacco e-Cigarette/Vaping Use: Never Used Second Hand Smoke Exposure: No service: No Current occupational status: unemployed Cognitive needs: No Hearing needs: No Vision needs: No Questionnaire Thrive Questionnaire Date Thrive assessed: 06/30/23 MARLIN-7 AMB Questionnaire MARLIN-7 Date MARLIN - 7 assessed: 06/30/23 Source: Developed by Drs. Trip Mcgee, Talia Valenzuela, Ham Dove and colleagues, with an educational laurie from [employer]. Review of Systems Const All systems reviewed & are unremarkable except as noted in HPI and below Card Denies chest pain at rest, Denies chest pain with activity, Denies edema, Denies irregular heart rhythm, Denies claudication, Denies dyspnea, Denies dyspnea on exertion, Denies orthopnea, Denies paroxysmal nocturnal dyspnea and Denies slow heart rate Resp Denies cough, Denies dyspnea and Denies dyspnea on exertion GI Denies abdominal pain, Denies change in bowel habits, Denies excessive flatus, Denies nausea and Denies vomiting Denies urinary hesitancy, Denies urinary incontinence and Denies urinary urgency Musc Denies abnormal gait, Denies atrophy, Denies deformity and Denies limited range of motion Skin/Breast Denies bleeding lesions, Denies changing lesions and Denies rash Neuro Denies abnormal gait, Denies behavioral changes and Denies lack of coordination Psych Denies behavioral changes Physical exam (Primary Care) Vital Signs: Last Vital Signs BP 144/80 H 11/11/23 10:25 BMI result Body Mass Index 29.0 Tobacco/Smoking Status: Tobacco use Status Tobacco use date assessed 06/30/23 11/11/23 10:31 Patient Tobacco Use Status Never used Tobacco 11/11/23 10:31 e-Cigarette/Vaping Use Never Used 11/11/23 10:31 Thrive Assessment: Date of Thrive Assessment Date Thrive assessed 06/30/23 11/11/23 10:31 Neck Neck: Yes normal visual inspection and Yes supple Resp Effort & Inspection: normal respiratory effort Auscultation: clear to auscultation bilaterally Cardio Jugular venous distension: no JVD Rate: regular rate Rhythm: regular rhythm Heart sounds: S1 normal heart sound present and S2 normal heart sound present Extrem General: Yes full ROM Results AMB Hemoglobin A1c AMB Hemoglobin A1c 8.1 % Last Edit by ZITA Goss on 11/11/23 10:3 6 Results Reviewed Results Reviewed: Laboratory Last Values Hgb A1c (Clinic) 8.1 % (4.0-6.0) H 11/11/23 10:24 Assessment and Plan Assessment & Plan (1) Diabetes mellitus: Code(s): E11.9 - Type 2 diabetes mellitus without complications Qualifiers: Diabetes mellitus type: type 2 Diabetes mellitus skilled nursing insulin use: without skilled nursing use Diabetes mellitus complication status: without complication Qualified Code(s): E11.9 - Type 2 diabetes mellitus without complications Plan: Continue metformin. Start Jardiance. A1c goal is equal or less than 7%. (2) Mild major depression: Code(s): F32.0 - Major depressive disorder, single episode, mild Plan: Continue sertraline. (3) Essential hypertension: Code(s): I10 - Essential (primary) hypertension Plan: Continue nifedipine. Increase candesartan. Recheck blood pressure with nurse navigator in 3 weeks. Blood pressure goal is equal or less than 130/80. (4) Hyperlipidemia LDL goal <70: Code(s): E78.5 - Hyperlipidemia, unspecified Plan: Continue statins. Repeat lipid panel. LDL goal is less than 70. (5) Ear discomfort: Code(s): H92.09 - Otalgia, unspecified ear Qualifiers: Laterality: bilateral Qualified Code(s): H92.03 - Otalgia, bilateral Plan: Referred to ENT. Orders: Orders AMB Hemoglobin A1c Today E11.9 - Type 2 diabetes mellitus without complications Lipid Panel Today E78.5 - Hyperlipidemia, unspecified Complete Blood Count Auto Diff Today D64.9 - Anemia, unspecified IRON PROFILE Today D64.9 - Anemia, unspecified Microalbumin, Random (w Creat) Today E11.9 - Type 2 diabetes mellitus without complications Comprehensive [place]. Panel Fast Today E11.9 - Type 2 diabetes mellitus without complications Referrals Ophthalmology Referral E11.9 - Type 2 diabetes mellitus without complications Ear/Nose/Throat Referral H92.09 - Otalgia, unspecified ear Medications: New candesartan 32 mg PO DAILY 90 tabs 0RF 90 days empagliflozin (Jardiance) 10 mg PO DAILY 90 tabs 1RF 90 days Refilled metformin ER 500 mg PO BID 180 tabs 2RF 90 days E11.9 - Type 2 diabetes mellitus without complications nifedipine ER 30 mg PO DAILY 90 tabs 3RF 90 days Discontinued candesartan Discontinued Reason: Patient Completed Course 16 mg PO DAILY 90 days 90 tabs 2RF Coding Level of Care Code Est Pt Level 4 (43054) Complex EM visit Add On [id number] Diagnoses Type 2 diabetes mellitus without complication, without long-term current use of insulin E11.9 Diabetes mellitus type: type 2 Diabetes mellitus skilled nursing insulin use: without skilled nursing use Diabetes mellitus complication status: without complication Mild major depression F32.0 Essential hypertension I10 Hyperlipidemia LDL goal <70 E78.5 Discomfort of both ears H92.03 Laterality: bilateral Time Spent (min) 24
[2023-11-11 10:25] VITALS: BP 144/80; BMI 29.0
[2023-11-11 11:03] VITALS: BP 145/80
== END 2023-11-11 10:57 | disposition home or self-care (01) ==
PROVIDERS: PCP Internal Medicine; Visit Provider Internal Medicine
DX: E11.9 Type 2 diabetes mellitus without complications (principal); F32.0 Major depressive disorder, single episode, mild; I10 Essential (primary) hypertension; E78.5 Hyperlipidemia, unspecified; H92.03 Otalgia, bilateral
CPT/HCPCS: 83036; 99214; G2211

== ENCOUNTER 2023-11-26 09:01 | Outpatient (REF) | payer OTHER, SELFPAY ==
[2023-11-26 09:26] LABS: MANUAL DIFF FLAG NO
[2023-11-26 10:12] LABS: Basophils Percent Auto 0.7 % (0-2); Eosinophils Absolute Auto 0.5 X10*3/uL (0.0-0.4); Eosinophils Percent Auto 9.2 % (0-4); Hematocrit 39.2 % (42.0-52.0); Hemoglobin 13.5 g/dl (14.0-18.0); Imm Gran Abs Auto 0.05 X10*3/uL (0.00-0.03); Imm Gran Pct Auto 0.9 % (0.0-0.4); Lymphocytes Absolute Auto 0.8 X10*3/uL (1.2-4.9); Lymphocytes Percent Auto 14.3 % (20-40); Mean Corpuscular HGB Conc 34.4 g/dl (31.0-36.0); Mean Corpuscular Hemoglobin 32.5 pg (27.0-33.0); Mean Corpuscular Volume 94.2 fL (80.0-98.0); Mean Platelet Volume 10.6 fL (9.4-12.4); Monocytes Absolute Auto 0.5 X10*3/uL (0.1-1.2); Monocytes Percent Auto 9.4 % (2-11); Neutrophils Absolute Auto 3.7 x10*3/uL (2.0-8.3); Neutrophils Percent Auto 65.5 % (45-73); Platelet Count 183 X10*3/uL (160-400); Red Blood Count 4.16 X10*6/uL (4.60-5.80); Red Cell Distribution Width 12.9 % (11.0-16.0); White Blood Count 5.7 X10*3/uL (4.8-10.8)
[2023-11-26 10:17] LABS: Appearance Urine Clear; Color Urine Yellow; Glucose Urine UA >=1000 mg/dL (Negative); Leukocyte Esterase Urine Negative (Negative); Nitrite Urine Negative (Negative); PH 5.5 (5.0-9.0); Specific Gravity - Urine >= 1.030 (1.005-1.025); UMIC TRIGGER UACC YES; Urine Blood Negative (Negative); Urine Ketones Negative (Negative); Urine Protein Negative (Neg-Trace)
[2023-11-26 10:36] LABS: Bacteria Urine 2+ (None Seen); Hyaline Casts Urine 0-2 /LPF (0-2); RBC Urine 0-2 /HPF (0-2); Squamous Epithelial Cell Urine 0-2 /HPF (0-2); UACC Culture Trigger YES
[2023-11-26 10:45] LABS: Creatinine Urine 98.32 mg/dL; Microalbum/Creatinine Ratio Ur 28.4 ug/mg cr (<30)
[2023-11-26 10:49] LABS: Alanine Aminotransferase 19 U/L (0-40); Albumin Level 4.3 g/dL (3.5-5.0); Alkaline Phosphatase 61 U/L (39-117); Anion Gap 11 (12-20); Aspartate Amino Transferase 16 U/L (5-37); Bilirubin Total 0.7 mg/dL (0.0-1.0); Blood Urea Nitrogen 17 mg/dL (9-16); Calcium 9.4 mg/dL (8.4-10.2); Carbon Dioxide 26 mmol/L (22-29); Chloride 106 mmol/L (96-108); Cholesterol 133 mg/dL (<200); Estimated Glomerular Filt Rate > 60; Glucose Fasting 237 mg/dL (60-99); HDL Cholesterol 42 mg/dL (>40); Iron 104 mcg/dL (45-160); LDL Cholesterol Calculated 68 mg/dL (<100); Percent Iron Saturation 37 % (15-50); Potassium 4.1 mmol/L (3.3-5.1); Sodium 139 mmol/L (135-145); Total Iron Binding Capacity 280 mcg/dL (228-428); Total Protein 7.3 g/dL (6.5-8.0); Triglycerides 115 mg/dL (<150); Unsaturated Iron Binding 176 ug/dL
== END 2023-11-26 09:02 | disposition home or self-care (01) ==
LOC: HO.LAB 09:01
PROVIDERS: PCP Internal Medicine; Visit Provider Internal Medicine
DX: E78.5 Hyperlipidemia, unspecified (principal); D64.9 Anemia, unspecified; E11.9 Type 2 diabetes mellitus without complications; R82.90 Unspecified abnormal findings in urine
CPT/HCPCS: 36415; 80053; 80061; 81001; 82043; 82570; 83540; 85025; 87086; 87088; 87186

== ENCOUNTER 2024-01-29 10:46 | Outpatient (REF) | payer OTHER, SELFPAY ==
[2024-01-29 11:10] LABS: MANUAL DIFF FLAG NO
[2024-01-29 11:34] LABS: Basophils Percent Auto 0.9 % (0-2); Eosinophils Absolute Auto 0.4 X10*3/uL (0.0-0.4); Eosinophils Percent Auto 8.8 % (0-4); Hematocrit 35.6 % (42.0-52.0); Hemoglobin 12.5 g/dl (14.0-18.0); Imm Gran Abs Auto 0.02 X10*3/uL (0.00-0.03); Imm Gran Pct Auto 0.4 % (0.0-0.4); Lymphocytes Absolute Auto 0.7 X10*3/uL (1.2-4.9); Lymphocytes Percent Auto 15.9 % (20-40); Mean Corpuscular HGB Conc 35.1 g/dl (31.0-36.0); Mean Corpuscular Hemoglobin 32.6 pg (27.0-33.0); Mean Platelet Volume 10.2 fL (9.4-12.4); Monocytes Absolute Auto 0.5 X10*3/uL (0.1-1.2); Neutrophils Absolute Auto 2.9 x10*3/uL (2.0-8.3); Platelet Count 230 X10*3/uL (160-400); Red Blood Count 3.83 X10*6/uL (4.60-5.80); Red Cell Distribution Width 13.4 % (11.0-16.0); White Blood Count 4.5 X10*3/uL (4.8-10.8)
[2024-01-29 11:37] LABS: Appearance Urine Clear; Color Urine Yellow; Glucose Urine UA >=1000 mg/dL (Negative); Leukocyte Esterase Urine Negative (Negative); Nitrite Urine Positive (Negative); PH 6.5 (5.0-9.0); Specific Gravity - Urine >= 1.030 (1.005-1.025); UMIC TRIGGER UACC YES; Urine Blood Negative (Negative); Urine Ketones Negative (Negative); Urine Protein Negative (Neg-Trace)
[2024-01-29 11:45] LABS: Bacteria Urine 4+ (None Seen); Hyaline Casts Urine 0-2 /LPF (0-2); RBC Urine 0-2 /HPF (0-2); Squamous Epithelial Cell Urine 0-2 /HPF (0-2); UACC Culture Trigger YES; WBC Urine 21-50 /HPF (0-5)
[2024-01-29 12:50] LABS: Alanine Aminotransferase 27 U/L (0-40); Albumin Level 3.9 g/dL (3.5-5.0); Alkaline Phosphatase 56 U/L (39-117); Anion Gap 11 (12-20); Aspartate Amino Transferase 23 U/L (5-37); Bilirubin Total 0.6 mg/dL (0.0-1.0); Blood Urea Nitrogen 15 mg/dL (9-16); Calcium 9.5 mg/dL (8.4-10.2); Carbon Dioxide 27 mmol/L (22-29); Chloride 108 mmol/L (96-108); Cholesterol 117 mg/dL (<200); Estimated Glomerular Filt Rate > 60; Glucose Fasting 148 mg/dL (60-99); HDL Cholesterol 42 mg/dL (>40); Iron 99 mcg/dL (45-160); LDL Cholesterol Calculated 55 mg/dL (<100); Percent Iron Saturation 39 % (15-50); Potassium 3.8 mmol/L (3.3-5.1); Sodium 142 mmol/L (135-145); Total Iron Binding Capacity 252 mcg/dL (228-428); Total Protein 6.9 g/dL (6.5-8.0); Triglycerides 102 mg/dL (<150); Unsaturated Iron Binding 153 ug/dL
[2024-01-29 12:57] LABS: Creatinine Urine 105.03 mg/dL; Microalbum/Creatinine Ratio Ur 19.9 ug/mg cr (<30)
== END 2024-01-29 10:47 | disposition home or self-care (01) ==
LOC: HO.LAB 10:46
PROVIDERS: PCP Internal Medicine; Visit Provider Internal Medicine
DX: R30.0 Dysuria (principal); E78.5 Hyperlipidemia, unspecified; D64.9 Anemia, unspecified; E11.9 Type 2 diabetes mellitus without complications
CPT/HCPCS: 36415; 80053; 80061; 81001; 82043; 82570; 83540; 85025; 87086; 87088; 87147; 87186

== ENCOUNTER 2024-02-23 08:47 | Outpatient (AMB) | payer OTHER, SELFPAY ==
--- NOTE | 2024-02-23 08:57 | A.OFFPC_ITS ---
Vital Signs 02/23/24 09:01 Height 5 ft 10.5 in Weight 194 lb BMI 27.4 BP 130/72 Blood Pressure Location Lt brachial Position Sitting Intake Visit Reasons: annual exam Intake Note: Patient here for annual physical exam Senior Functional Analyst Required: No Accompanied by: Self / Same As Patient Allergies No Known Allergies Allergy (Verified 02/23/24 09:09) Medication List - Last Reconciled 02/23/24 by Ivonne Lee MD atorvastatin 20 mg PO DAILY 90 days candesartan 32 mg PO DAILY 90 days clotrimazole 1% 1 appl topical BID 2 weeks empagliflozin (Jardiance) 10 mg PO DAILY 90 days metformin ER 500 mg PO BID 90 days nifedipine ER 30 mg PO DAILY 90 days polyethylene glycol 3350 (Gavilax) 17 grams PO DAILY PRN sertraline 25 mg PO DAILY 90 days timolol maleate 0.5% 1 drp ophthalmic (eye) BID Tobacco use date assessed: 06/30/23 Dental Screening Dental Screen Date: 06/30/23 HPI HPI Comments History of Present Illness Details The patient is a 78-year-old male presenting for an annual physical examination and ongoing management of his chronic conditions, including hyperlipidemia, hypertension, type 2 diabetes mellitus, glaucoma, depression and anxiety. His history includes cataract surgery and findings of tubular adenoma on a colonoscopy in April of the current year, with the next surveillance colonoscopy scheduled based on prior findings. He reports well-controlled hypertension, although he did not take his medication in anticipation of potential blood tests during this visit. His blood pressure reading was 130/72 mmHg. Previous measurements indicated a significant improvement in fasting glucose levels, from 237 to 148 mg/dL, with his recent HbA1c recorded at 6.6%, suggesting effective management of diabetes. He follows a regimen of multiple medications, including atorvastatin for hyperlipidemia, candesartan for hypertension, Jardiance and metformin for diabetes, nifedipine for hypertension, gavilax as needed for constipation, sertraline for depression with anxiety, and timolol eye drops for glaucoma. He experienced anemia with a hemoglobin level of 12.5 g/dL, considered mild and to be monitored. He received the pneumococcal and Tdap vaccines last year and recently obtained the influenza vaccine. There are no reported symptoms of chest pain, dyspnea, or fever. The patient conveyed concerns about urinary issues and a persistent infection, indicating the necessity for a urology referral. - Pneumococcal vaccination received last year. - Tdap (tetanus, diphtheria, pertussis) vaccination administered last year. - Recent influenza vaccination was compl eted. - Colonoscopy conducted in April with findings of tubular adenomas. - Upcoming planned repeat evaluation in about a year based on previous colonoscopy results. - Regular monitoring of HbA1c with a rec ent result of 6.6%. [facility] Surgical History (Updated 02/23/24 @ 09:17 by Ivonne Lee MD) H/O colonoscopy Cataract H/O lithotripsy History of tonsillectomy History of knee surgery Family History Father Cancer Mother Alzheimer disease Family/Other Mental health disorder Social History Housing: Apartment Alcohol intake: current Alcohol intake frequency: holidays/special occasions only Alcohol type: wine Patient Tobacco Use Status: Never used Tobacco e-Cigarette/Vaping Use: Never Used Second Hand Smoke Exposure: No service: No Current occupational status: unemployed Cognitive needs: No Hearing needs: No Vision needs: No Questionnaire Thrive Questionnaire Date Thrive assessed: 06/30/23 MARLIN-7 AMB Questionnaire MARLIN-7 Date MARLIN - 7 assessed: 06/30/23 Source: Developed by Drs. Trip Mcgee, Talia Valenzuela, Ham Dove and colleagues, with an educational laurie from [employer]. Review of Systems Const All systems reviewed & are unremarkable except as noted in HPI and below Card Denies chest pain at rest, Denies chest pain with activity, Denies edema, Denies irregular heart rhythm, Denies claudication, Denies dyspnea, Denies dyspnea on exertion, Denies orthopnea, Denies paroxysmal nocturnal dyspnea and Denies slow heart rate Resp Denies cough, Denies dyspnea and Denies dyspnea on exertion GI Denies abdominal pain, Denies change in bowel habits, Denies excessive flatus, Denies nausea and Denies vomiting Denies urinary hesitancy, Denies urinary incontinence and Denies urinary urgency Neuro Denies behavioral changes and Denies lack of coordination Psych Denies behavioral changes Physical exam (Primary Care) Vital Signs: Last Vital Signs BP 130/72 02/23/24 09:01 BMI result Body Mass Index 27.4 Tobacco/Smoking Status: Tobacco use Status Tobacco use date assessed 06/30/23 02/23/24 09:03 Patient Tobacco Use Status Never used Tobacco 02/23/24 09:03 e-Cigarette/Vaping Use Never Used 02/23/24 09:03 Thrive Assessment: Date of Thrive Assessment Date Thrive assessed 06/30/23 02/23/24 09:03 HENMA Head: Yes normal to inspection, Yes normocephalic and Yes atraumatic Ears: external ears normal Eyes General: appearance normal, both eyes and all related structures Eyelids: Yes eyelids normal Conjunctivae: conjunctivae normal Neck Neck: Yes normal visual inspection and Yes supple Resp Effort & Inspection: normal respiratory effort Auscultation: clear to auscultation bilaterally Cardio Jugular venous distension: no JVD Rate: regular rate Rhythm: regular rhythm Heart sounds: S1 normal heart sound present and S2 normal heart sound present GI Inspection: Yes normal to inspection Palpation (GI): Soft to palpation and nontender Auscultation: normal bowel sounds Skin General skin exam: no rashes or lesions noted Neuro General: no focal motor deficits Extrem General: Yes full ROM Psych Appearance: grossly normal Office Procedures Flu Questionnaire Does the patient have a severe egg allergy?: No Does the patient have severe life threatening allergies?: No Does the patient have a fever or illness today?: No Has the patient ever had Guillain-[place] Syndrome?: No Has the patient ever had any past reaction to a flu shot?: No Results AMB Hemoglobin A1c AMB Hemoglobin A1c 6.6 % Last Edit by ZITA Goss on 02/23/24 09:2 1 Immunizations Fluarix Triv [id number] (PF) 45 mcg (15 mcg x 3)/0.5 mL IM syringe Performing Provider: Ivonne Lee MD [facility] Administered by: ZITA Goss on 02/23/24 09:13 Dose Route Admin Location Dispensed Lot Number Expiration Date [facility] Autom[employer] 0.5 mL IM Left Deltoid 0.5 mL [id number] 09/26/24 [id number] [employer] VIS Given Date VIS Provided VIS Publication Date 02/23/24 Single Vaccine 20 Eligibility Eligibility Date Funding Source Not [facility] Eligible 02/23/24 Private Results Reviewed Results Reviewed: Laboratory Last Values Hgb A1c (Clinic) 6.6 % (4.0-6.0) H 02/23/24 09:15 Coding Level of Care Code Est Pt Level 3 (21163) Est Pt Prev Care >65y(85550) Diagnoses Physical exam Z00.00 Type 2 diabetes mellitus without complication, without long-term current use of insulin E11.9 Diabetes mellitus complication status: without complication Diabetes mellitus termite renewal inspector insulin use: without termite renewal inspector use Diabetes mellitus type: type 2 Mild major depression F32.0 Pain in penis N48.89 BPH (benign prostatic hyperplasia) N40.0 Time Spent (min) 35 Assessment & Plan Assessment & Plan (1) Physical exam: Code(s): Z00.00 - Encounter for general adult medical examination without abnormal findings Category: Medical (2) Diabetes mellitus: Code(s): E11.9 - Type 2 diabetes mellitus without complications Category: Medical Qualifiers: Diabetes mellitus complication status: without complication Diabetes mellitus termite renewal inspector insulin use: without termite renewal inspector use Diabetes mellitus type: type 2 Qualified Code(s): E11.9 - Type 2 diabetes mellitus without complications (3) Mild major depression: Code(s): F32.0 - Major depressive disorder, single episode, mild Category: Medical (4) Pain in penis: Code(s): N48.89 - Other specified disorders of penis Category: Medical (5) BPH (benign prostatic hyperplasia): Code(s): N40.0 - Benign prostatic hyperplasia without lower urinary tract symptoms Category: Medical Plan - Hyperlipidemia: Continue atorvastatin; lipid levels are within desired range. - Hypertension: Continue candesartan and nifedipine; blood pressure is well controlled; monitor adherence and lifestyle modification. - Type 2 Diabetes Mellitus: Continue Jardiance and metformin; monitor glucose le vels and HbA1c; reinforce lifestyle and dietary modifications. - Glaucoma: Continue using timolol eye drops as prescribed by the end matcher. - Depression with Anxiety: Continue sertraline; monitor mood and mental health status. - Cataracts: Routine follow-up post-cataract surgery. - Tubular Adenoma: Follow-up colonoscopy as previously scheduled. - Anemia: Monitor hemoglobin; repeat blood work in four months to reassess. - Urinary issues: Follow-up with urology for persistent urinary symptoms and infection. - Infection and Swelling: Continue prescribed ointment for another week, assess need for further intervention. Patient was informed and verbally consented to the use of an ambient scribe for clinic note documentation during this visit. During the consultation, I informed the patient of the management plan, emphasizing the importance of compliance with his current medication regimen, particularly regarding his cardiovascular risk factors, diabetes management, and mental health support. We discussed the significance of maintaining adequate blood pressure and glucose control. The patient was scheduled for a follow-up colonoscopy based on prior findings of tubular adenomas. I addressed the patient's concerns about his urinary symptoms and swelling, recommending evaluation by a urologist. The patient agreed to continue his current treatments and follow-up care. I also underscored the importance of routine vaccinations and regular monitoring of anemia. Potential further interventions will depend on urological evaluation results. Orders: Orders Influenza [id number] Immunization Today Z23 - Encounter for immunization Lipid Panel 4 Months E78.5 - Hyperlipidemia, unspecified Microalbumin, Random (w Creat) 4 Months R80.9 - Proteinuria, unspecified Vitamin D 25-OH Total 4 Months E55.9 - Vitamin D deficiency, unspecified Complete Blood Count Auto Diff 4 Months D64.9 - Anemia, unspecified AMB Hemoglobin A1c Today E11.9 - Type 2 diabetes mellitus without complications Comprehensive [place]. Panel Fast 4 Months E11.9 - Type 2 diabetes mellitus without complications Referrals Urology Referral N20.0 - Calculus of kidney, N40.0 - Benign prostatic hyperplasia without lower urinary tract symptoms, N48.89 - Other specified disorders of penis
[2024-02-23 09:01] VITALS: BP 130/72; BMI 27.4
== END 2024-02-23 09:36 | disposition home or self-care (01) ==
LOC: HO.HMCH 08:47
PROVIDERS: PCP Internal Medicine; Visit Provider Internal Medicine
DX: Z00.00 Encounter for general adult medical examination without abnormal findings (principal); E11.9 Type 2 diabetes mellitus without complications; F32.0 Major depressive disorder, single episode, mild; N48.89 Other specified disorders of penis; N40.0 Benign prostatic hyperplasia without lower urinary tract symptoms

== ENCOUNTER → 2024-02-23 08:47 | Outpatient (BNVA) | payer OTHER, SELFPAY | PROVIDERS: PCP Internal Medicine; Visit Provider Internal Medicine | DX: Z00.00 Encounter for general adult medical examination without abnormal findings (principal); Z23 Encounter for immunization; E11.9 Type 2 diabetes mellitus without complications; F32.0 Major depressive disorder, single episode, mild; N48.89 Other specified disorders of penis; N40.0 Benign prostatic hyperplasia without lower urinary tract symptoms | CPT/HCPCS: 83036; 90471; 90656; 99212; 99397 ==

== ENCOUNTER 2024-06-21 09:05 | Outpatient (REF) | payer OTHER, SELFPAY ==
[2024-06-21 09:29] LABS: MANUAL DIFF FLAG NO
[2024-06-21 10:40] LABS: Basophils Absolute Auto 0.1 X10*3/uL (0.0-0.2); Basophils Percent Auto 1.2 % (0-2); Eosinophils Absolute Auto 0.5 X10*3/uL (0.0-0.4); Eosinophils Percent Auto 9.9 % (0-4); Hematocrit 40.2 % (42.0-52.0); Hemoglobin 13.9 g/dl (14.0-18.0); Imm Gran Abs Auto 0.03 X10*3/uL (0.00-0.03); Imm Gran Pct Auto 0.6 % (0.0-0.4); Lymphocytes Absolute Auto 0.8 X10*3/uL (1.2-4.9); Lymphocytes Percent Auto 16.3 % (20-40); Mean Corpuscular HGB Conc 34.6 g/dl (31.0-36.0); Mean Corpuscular Volume 92.4 fL (80.0-98.0); Mean Platelet Volume 10.8 fL (9.4-12.4); Monocytes Absolute Auto 0.5 X10*3/uL (0.1-1.2); Monocytes Percent Auto 9.5 % (2-11); Neutrophils Absolute Auto 3.2 x10*3/uL (2.0-8.3); Neutrophils Percent Auto 62.5 % (45-73); Platelet Count 164 X10*3/uL (160-400); Red Blood Count 4.35 X10*6/uL (4.60-5.80); Red Cell Distribution Width 14.5 % (11.0-16.0); White Blood Count 5.1 X10*3/uL (4.8-10.8)
[2024-06-21 12:01] LABS: Appearance Urine Cloudy; Color Urine Yellow; Glucose Urine UA >=1000 mg/dL (Negative); Leukocyte Esterase Urine Moderate (2+) (Negative); Nitrite Urine Negative (Negative); PH 5.5 (5.0-9.0); Specific Gravity - Urine >= 1.030 (1.005-1.025); UMIC TRIGGER UACC YES; Urine Blood Moderate (2+) (Negative); Urine Ketones Negative (Negative); Urine Protein 30 (1+) mg/dL (Neg-Trace)
[2024-06-21 12:08] LABS: Alanine Aminotransferase 18 U/L (0-40); Albumin Level 3.9 g/dL (3.5-5.0); Alkaline Phosphatase 67 U/L (39-117); Anion Gap 9 (12-20); Aspartate Amino Transferase 19 U/L (5-37); Bilirubin Total 0.7 mg/dL (0.0-1.0); Blood Urea Nitrogen 16 mg/dL (9-16); Calcium 8.7 mg/dL (8.4-10.2); Carbon Dioxide 25 mmol/L (22-29); Chloride 109 mmol/L (96-108); Cholesterol 113 mg/dL (<200); Estimated Glomerular Filt Rate > 60; Glucose Fasting 143 mg/dL (60-99); HDL Cholesterol 51 mg/dL (>40); LDL Cholesterol Calculated 52 mg/dL (<100); Potassium 3.6 mmol/L (3.3-5.1); Sodium 139 mmol/L (135-145); Total Protein 6.7 g/dL (6.5-8.0); Triglycerides 50 mg/dL (<150); Vitamin D 25-OH Total 17.8 ng/mL (>30)
[2024-06-21 12:19] LABS: Bacteria Urine 4+ (None Seen); Hyaline Casts Urine 0-2 /LPF (0-2); Squamous Epithelial Cell Urine 0-2 /HPF (0-2); UACC Culture Trigger YES; WBC Urine >50 /HPF (0-5)
[2024-06-21 12:34] LABS: Creatinine Urine 101.72 mg/dL; Microalbum/Creatinine Ratio Ur 90.4 ug/mg cr (<30)
== END 2024-06-21 09:06 | disposition home or self-care (01) ==
LOC: HO.LAB 09:05
PROVIDERS: PCP Internal Medicine; Visit Provider Internal Medicine
DX: E11.9 Type 2 diabetes mellitus without complications (principal); R80.9 Proteinuria, unspecified; D64.9 Anemia, unspecified; E78.5 Hyperlipidemia, unspecified; E55.9 Vitamin D deficiency, unspecified
CPT/HCPCS: 36415; 80053; 80061; 81001; 81003; 82043; 82306; 82570; 85025; 87086; 87147

== ENCOUNTER 2024-06-22 14:16 | Outpatient (AMB) | payer OTHER, SELFPAY ==
--- NOTE | 2024-06-22 14:35 | A.OFFPC_ITS ---
Vital Signs 06/22/24 14:37 Height 5 ft 10.5 in Weight 183 lb BMI 25.9 BP 126/70 Blood Pressure Location Lt brachial Position Sitting Intake Visit Reasons: dm, NEEDS 30 MINUTES Intake Note: Patient here for a follow up DM Rn Primary Care Required: Yes Rn Primary Care Language: Food And Nutrition Teacher Name: Ivonne Lee MD Information Interpreted: non-clinical & clinical Accompanied by: Son Allergies No Known Allergies Allergy (Verified 06/22/24 14:54) Medication List - Last Reconciled 06/22/24 by Ivonne Lee MD atorvastatin 20 mg PO DAILY 90 days candesartan 32 mg PO DAILY 90 days cholecalciferol (vitamin D3) 50 mcg PO DAILY 90 days clotrimazole 1% 1 appl topical BID 2 weeks empagliflozin (Jardiance) 10 mg PO DAILY 90 days metformin ER 500 mg PO BID 90 days nifedipine ER 30 mg PO DAILY 90 days polyethylene glycol 3350 (Gavilax) 17 grams PO DAILY PRN sertraline 25 mg PO DAILY 90 days timolol maleate 0.5% 1 drp ophthalmic (eye) BID Tobacco use date assessed: 06/22/24 Fall risk assessment: 2 + Falls in past year Last assessed Fall Risk: 06/22/24 Dental Screening Dental Screen Date: 06/22/24 Did you have a dental visit in the last 12 months?: Yes Did you have a dental problem in the last 6 months where you did not have access to dental care?: No Was dental information given to patient?: Patient has dentist HPI HPI Comments History of Present Illness Details The patient is a 78-year-old male presenting for follow-up and management of his chronic medical conditions, specifically focusing on Type 2 Diabetes Mellitus, Essential Hypertension, and Hyperlipidemia. He reports recent urinary tract concerns with symptoms of hematuria and has been advised to see a urologist and retail event assistant for further evaluation. He manages his diabetes with medications, achieving an A1c of 6.2% and maintaining controlled blood sugar levels. His hypertension is controlled with current medication, reflected by a blood pressure reading of 126/70 mmHg. Additionally, the patient has a history of glaucoma, managed with ophthalmic drops, and reports improvement in his depression and anxiety symptoms, supported by a decline in PHQ-9 score to 1. Recently, a vitamin D deficiency was identified, and he has commenced supplementing with vitamin D3. On examination, he has noted increased left knee pain, exacerbated by decreased mobility due to weather changes, with a significant past medical history of meniscal removal over two decades ago. He reports right shoulder pain after recent falls, attributed to impact injuries. [facility] Surgical History H/O colonoscopy Cataract H/O lithotripsy History of tonsillectomy History of knee surgery Family History Father Cancer Mother Alzheimer disease Family/Other Mental health disorder Social History Housing: Apartment Alcohol intake: current Alcohol intake frequency: holidays/special occasions only Alcohol type: wine Patient Tobacco Use Status: Never used Tobacco e-Cigarette/Vaping Use: Never Used Second Hand Smoke Exposure: No service: No Current occupational status: unemployed Cognitive needs: No Hearing needs: No Vision needs: No Questionnaire PHQ-9 Over the last 2 weeks, how often have you been bothered by any of the following problems? 1. Little interest or pleasure in doing things: not at all 2. Feeling down, depressed, or hopeless: not at all 3. Trouble falling or staying asleep, or sleeping too much: several days 4. Feeling tired or having little energy: not at all 5. Poor appetite or overeating: not at all 6. Feeling bad about yourself - or that you are a failure or have let yourself or your family down: not at all 7. Trouble concentrating on things, such as reading the newspaper or watching television: not at all 8. Moving or speaking so slowly that other people could have noticed. Or the opposite - being so fidgety or restless that you have been moving around a lot more than usual: not at all 9. Thoughts that you would be better off or of hurting yourself in some way: not at all Total score: 1 Depression Screening Interpretation: Negative Depression Screening Done: Yes 04400 - PHQ-9 Billing: Yes Source: Developed by Drs. Trip Mcgee, Talia Valenzuela, Ham Dove and colleagues, with an educational laurie from [employer]. Thrive Questionnaire Date Thrive assessed: 06/22/24 I am a: Patient What is your living situation today?: I have a steady place to live Within the past 12 months, did the food you bought not last and you didn't have the money to get more?: Never true Within the past 12 months, did you worry whether your food would run out before you got money to buy more?: Never true Do you have trouble paying for medicines?: No Do you have trouble getting transportation to medical appointments?: No Do you have trouble paying your heating and electricity bill?: No Do you have trouble taking care of your child, family member or friend?: No Do you have trouble with day-to-day activities such as bathing, preparing meals, shopping, managing finances, etc.?: No Are you currently unemployed and looking for a job?: No Are you interested in more education?: No Please select the resources that you would like help with: None Currently or been in a relationship where the following occur: No concerns reported THRIVE Score: 0 AUDIT C Alcohol Use Questionnaire (AUDIT-C) 1. How often do you have a drink containing alcohol?: Monthly or less 2. How many drinks containing alcohol do you have on a typical day when you are drinking?: 1 or 2 3. How often do you have six or more drinks on one occasion?: Never Total Score: 1 Score Reviewed/Action Taken: No MARLIN-7 AMB Questionnaire MARLIN-7 Date MARLIN - 7 assessed: 06/22/24 Feeling nervous, anxious, or on edge: 1 = Several days Not being able to stop or control worryin = Not at all Worrying too much about different things: 1 = Several days Trouble relaxin = Not at all Being so restless that it is hard to sit still: 0 = Not at all Becoming easily annoyed or irritable: 0 = Not at all Feeling afraid as if something awful might happen: 0 = Not at all Total MARLIN-7 score (0-4 normal; 5-9 mild; 10-14 moderate; 15-21 severe): 2 Source: Developed by Drs. Trpi Mcgee, Talia Valenzuela, Ham Dove and colleagues, with an educational laurie from [employer]. MARLIN-7 Assessment Billing MARLIN-7 Assessment Tool: MARLIN-7 Assessment 51410 Review of Systems Const All systems reviewed & are unremarkable except as noted in HPI and below Card Denies chest pain at rest, Denies chest pain with activity, Denies edema, Denies irregular heart rhythm, Denies claudication, Denies dyspnea, Denies dyspnea on exertion, Denies orthopnea, Denies paroxysmal nocturnal dyspnea and Denies slow heart rate Resp Denies cough, Denies dyspnea and Denies dyspnea on exertion GI Denies abdominal pain, Denies change in bowel habits, Denies excessive flatus, Denies nausea and Denies vomiting Denies urinary hesitancy, Denies urinary incontinence and Denies urinary urgency Musc Denies abnormal gait, Denies atrophy, Denies deformity and Denies limited range of motion Skin/Breast Denies bleeding lesions, Denies changing lesions and Denies rash Neuro Denies abnormal gait and Denies lack of coordination Physical exam (Primary Care) Vital Signs: Last Vital Signs BP 126/70 06/22/24 14:37 BMI result Body Mass Index 25.9 Tobacco/Smoking Status: Tobacco use Status Tobacco use date assessed 06/22/24 06/22/24 14:45 Patient Tobacco Use Status Never used Tobacco 06/22/24 14:45 e-Cigarette/Vaping Use Never Used 06/22/24 14:45 PHQ-9: PHQ-9 Score PHQ-9: Total score 1 06/22/24 14:58 Depression Screening Interpretation: Negative Thrive Assessment: Date of Thrive Assessment Date Thrive assessed 06/22/24 06/22/24 14:45 Currently or been in a relationship where the following occur: No concerns reported Const Orientation/consciousness: patient oriented x3 Resp Effort & Inspection: normal respiratory effort Auscultation: clear to auscultation bilaterally Cardio Jugular venous distension: no JVD Rate: regular rate Rhythm: regular rhythm Heart sounds: S1 normal heart sound present and S2 normal heart sound present Neuro General: patient oriented x3 and no focal motor deficits Extrem General: Yes full ROM Psych Appearance: grossly normal Results AMB Hemoglobin A1c AMB Hemoglobin A1c 6.2 % Last Edit by ZITA Goss on 06/22/24 14:5 1 Results Reviewed Results Reviewed: Laboratory Last Values Hgb A1c (Clinic) 6.2 % (4.0-6.0) H 06/22/24 14:32 Coding Level of Care Code Est Pt Level 4 (93579) Complex EM visit Add On G2211 Diagnoses Type 2 diabetes mellitus without complication, without long-term current use of insulin E11.9 Diabetes mellitus type: type 2 Diabetes mellitus skilled nursing insulin use: without skilled nursing use Diabetes mellitus complication status: without complication Essential hypertension I10 Hyperlipidemia LDL goal <70 E78.5 Mild major depression F32.0 Right homonymous hemianopsia H53.461 Right shoulder pain M25.511 Left shoulder pain M25.512 Left knee pain M25.562 Microalbuminuria R80.9 Hematuria R31.9 Additional Codes MARLIN-7 Assessment Billing - MARLIN-7 Assessment Tool: MARLIN-7 Assessment 05860 ([id number]) PHQ-9 - 56037 - PHQ-9 Billing: Yes ([id number]) Time Spent (min) 35 Assessment & Plan Assessment & Plan (1) Diabetes mellitus: Code(s): E11.9 - Type 2 diabetes mellitus without complications Category: Medical Qualifiers: Diabetes mellitus type: type 2 Diabetes mellitus skilled nursing insulin use: without skilled nursing use Diabetes mellitus complication status: without complication Qualified Code(s): E11.9 - Type 2 diabetes mellitus without complications (2) Essential hypertension: Code(s): I10 - Essential (primary) hypertension Category: Medical (3) Hyperlipidemia LDL goal <70: Code(s): E78.5 - Hyperlipidemia, unspecified Category: Medical (4) Mild major depression: Code(s): F32.0 - Major depressive disorder, single episode, mild Category: Medical (5) Right homonymous hemianopsia: Code(s): H53.461 - Homonymous bilateral field defects, right side Category: Medical (6) Right shoulder pain: Code(s): M25.511 - Pain in right shoulder Category: Medical (7) Left shoulder pain: Code(s): M25.512 - Pain in left shoulder Category: Medical (8) Left knee pain: Code(s): M25.562 - Pain in left knee Category: Medical (9) Microalbuminuria: Code(s): R80.9 - Proteinuria, unspecified Category: Medical (10) Hematuria: Code(s): R31.9 - Hematuria, unspecified Category: Medical Plan During this visit, I reviewed the management plan of chronic issues, including Type 2 Diabetes, Essential Hypertension, and Hyperlipidemia, as well as the new urinary concerns. The patient will continue current medication regimens with adjustments based on lab results. Addressing microalbuminuria and hematuria necessitates consultation with nephrology and urology. He commenced Vitamin D supplementation for deficiency correction. Risks of further falls and pain management require attention, recommending notable treatments through an orthopedic consult. Future monitoring focuses on maintaining blood glucose and lipid control, and evaluating the kidney function progression. I also discussed the logistics of medical appointments and facilitated access to specialist referrals. Patient was informed and verbally consented to the use of an ambient scribe for clinic note documentation during this visit. I discussed the management and treatment plan for the patient's chronic conditions, emphasizing the importance of controlling diabetes, hypertension, and cholesterol to prevent further complications. We reviewed the risks and benefits of current medications, including atorvastatin, candesartan, nifedi pine, metformin, Jardiance, and sertraline. The potential impact of vitamin D deficiency was addressed, with supplementation prescribed to alleviate levels. I explained the association between diabetes, hypertension, and proteinuria and advised seeing a retail event assistant for kidney monitoring. To address hematuria, a urologist referral was deemed necessary. I also provided clarity on transport issues, suggesting insurance options to enhance appointment accessibility. Furthermore, I underscored the importance of follow-up lab tests in four months and emphasized attending specialist consultations for a comprehensive review plan. Orders: Orders Lipid Panel 4 Months E78.5 - Hyperlipidemia, unspecified Microalbumin, Random (w Creat) 4 Months R80.9 - Proteinuria, unspecified Vitamin D 25-OH Total 4 Months E55.9 - Vitamin D deficiency, unspecified XR shoulder LT min 2V Today M25.512 - Pain in left shoulder XR shoulder RT min 2V Today M25.511 - Pain in right shoulder AMB Hemoglobin A1c Today E11.9 - Type 2 diabetes mellitus without complications XR knee LT 2V Today M25.562 - Pain in left knee Comprehensive [place]. Panel Fast 4 Months E11.9 - Type 2 diabetes mellitus without complications Referrals Nephrology Referral R80.9 - Proteinuria, unspecified Ophthalmology Referral H53.461 - Homonymous bilateral field defects, right side Urology Referral N40.0 - Benign prostatic hyperplasia without lower urinary tract symptoms, R31.9 - Hematuria, unspecified Orthopedics Referral M25.562 - Pain in left knee Medications: New nitrofurantoin macrocrystal must administer with a meal/food 100 mg PO BID 10 caps 0RF 5 days Patient Instructions: - Continue all prescribed medications as usual. - Take vitamin D3 supplements regularly as discussed. - Schedule appointments with a retail event assistant and urologist for further urinary and kidney evaluations. - Monitor blood sugar levels and maintain a diabetes-friendly diet. - Follow up on orthopedic consultation for left knee and shoulder pain as needed. - Practice exercises as tolerated to manage knee pain when weather permits. - Report any concerning symptoms or changes, specifically increases in blood pressure, unusual pain, or visual changes, promptly. - Schedule a follow-up visit for the lab tests in four months. - Discuss transportation facilitation with check-out or insurance.
[2024-06-22 14:37] VITALS: BP 126/70; BMI 25.9
--- OUTSIDE RECORDS SUMMARY | 2024-06-22 17:11 | XMS_ITS | Clinical Summary ---
Author Organization [facility] Address [address] [place] [address] Care Team Providers Care Furnace Hand Name Role Phone Unavailable Primary Care Provider Unavailabl e Source Comments PLEASE NOTE, if this patient is a minor, it may be UNLAWFUL to discuss sensitive information that is contained in these records (such as FAMILY PLANNING, MENTAL HEALTH or SUBSTANCE ABUSE) with the minor patient's parent or other person without the patient's specific authorization.[facility] Medications ibuprofen 600 mg tabletIndications: Chronic apical periodontitis Take 1 Tablet by mouth 4 (four) times daily as needed for mild pain 20 Tablet 3 Active amoxicillin (AMOXIL) 500 mg capsuleIndications :Chronic apical periodontitis Take 1 Capsule by mouth 3 (three) times daily 21 Capsule 3 Active Active Problems Problem Noted Date Diagnosed Date Diabetes ([facility]) 06/06/2022 Depression 06/06/2022 Social History Tobacco Use Types Packs/Day Years Used Date Smoking Tobacco: Never Assessed Social Connections Answer Date Recorded Connectedness 0 12/12/2023 Financial Resource Strain Answer Date R ecorded Financial Resource Strain 0 2022 Stress Answer Date Recorded Stress 0 06/06/2022 Physical Activity Answer Date Recorded Physical Activity 0 06/06/2022 Food Insecurity Answer Date Recorded Food 0 12/24/2023 Transportation Needs Answer Date Record ed Transportation 0 06/06/2022 Housing Stability Answer Date Recorded Housing 0 06/06/2022 Safety and Environment Answer Date David rded Safety 0 06/06/2022 Utilities Answer Date Recorded Utilities 0 06/06/2022 Employment Answer Date Recorded Stress 0 12/12/2023 Sex and Gender Information Value Date Recorded Sex Assigned at Not on file Legal Sex Male 7:29 AM PST Gender Identity Not on file Sexual Orientation Not on file Last Filed Vital Signs Vital Sign Reading Time Taken Comments Blood Pressure 135/71 07/03/2022 3:54 PM EDT Pulse 81 07/03/2022 3:54 PM EDT Temperature - - Respiratory Rate - - Oxygen Saturation - - Inhaled Oxygen Concentration - - Weight - - Height - - Body Mass Index - - Plan of Treatment Health Maintenance Due Date Last Done Comments Dental Perio Charting 1947 Dental Prophy 1947 Depression Monitoring 1947 Diabetes Foot Exam 1947 Diabetes HbA1c 1947 Hepatitis C Screening 1947 Lipid Screening 1947 Serum Creatinine 1947 Tobacco Screening 1947 Urine Albumin Creatinine Ratio Screening 1947 Retinopathy Screening 09/12/1960 Medicare Annual Wellness Visit 09/12/1965 Imm-DTaP/Tdap/Td (1 - Tdap) 09/12/1966 Imm-Pneumococcal 65+ (1 of 2 - PCV) 09/12/1966 Imm-Zoster, Recombinant (1 of 2) 09/12/1997 Falls Prevention 09/12/2012 Dental BW 06/09/2023 06/06/2022 Dental Examination 06/09/2023 06/06/2022 Hypertension Screening (#1) 07/03/2023 [id number] ( - season) 2023 Imm-Influenza (#1) 2023 Alcohol and Drug Screen 03/30/2024 Dental FMX/Pano 06/09/2027 06/06/2022 Procedures Procedure Name Priority Date/Time Associated Diagnosis Comments Full INTRAORAL - COMP SERIES OF RADIOGRAPHIC IMAGES Routine 06/06/2022 3:40 PM EST Gingivitis, chronic, plaque induced Full COMP ORAL EVALUATION - NEW/ESTABLISHED PATIENT Routine 06/06/2022 3:40 PM EST Gingivitis, chronic, plaque induced from Last 3 Months or Most Recently Relevant to Health Maintenance Insurance [place] MEDICAID DENTAL [facility] - DENTAL
--- OUTSIDE RECORDS SUMMARY | 2024-06-22 17:11 | XMS_ITS | Clinical Summary ---
Author Organization [facility] Address [address] [place] [address] Care Team Providers Care Body Mechanic Apprentice Name Role Phone Unavailable Primary Care Provider Unavailabl e Social History Tobacco Use Types Packs/Day Years Used Date Smoking Tobacco: Never Assessed Sex and Gender Information Value Date Recorded Sex Assigned at Not on file Legal Sex Male 8:28 PM EST Gender Identity Not on file Sexual Orientation Not on file Plan of Treatment Health Maintenance Due Date Last Done Comments DTaP,Tdap,and Td Vaccines (1 - Tdap) 09/12/1966 Pneumococcal Vaccine: 50+ Ye ars (1 of 1 - PCV) 09/12/1997 Zoster Vaccines (1 of 2) 09/12/1997 RSV Immunization Patients 60 + Years Old (1 - 1-dose 75+ series) 09/12/2022 Cholesterol Screening (Lipid Panel) 04/24/2023 Depression Screening 04/24/2023 Falls Risk Assessment 04/24/2023 Hepatitis C Screening 04/24/2023 Social Influencers of Health Screening 04/24/2023 COVID-19 Vaccine ( - 2023-2 5 season) 2023 Influenza Vaccine (#1) 2023 HIB Vaccines Aged Out No longer eligi ble based on patient's age to complete this topic HPV Vaccines Aged Out No longer eligi ble based on patient's age to complete this topic Hepatitis A Vaccines Aged Out No long er eligible based on patient's age to complete this topic Hepatitis B Vaccines Aged Out No long er eligible based on patient's age to complete this topic IPV Vaccines Aged Out No longer eligi ble based on patient's age to complete this topic MMR Vaccines Aged Out No longer eligi ble based on patient's age to complete this topic Meningococcal ACWY Vaccine Aged Out N o longer eligible based on patient's age to complete this topic Meningococcal B Vacine Aged Out No lo nger eligible based on patient's age to complete this topic RSV Immunization Patients Un landy 20 months Aged Out No longer eligible b ased on patient's age to complete this topic Varicella Vaccines Aged Out No longer eligible based on patient's age to complete this topic
== END 2024-06-22 15:24 | disposition home or self-care (01) ==
LOC: HO.HMCH 14:17
PROVIDERS: PCP Internal Medicine; Visit Provider Internal Medicine
DX: E11.9 Type 2 diabetes mellitus without complications (principal); I10 Essential (primary) hypertension; E78.5 Hyperlipidemia, unspecified; F32.0 Major depressive disorder, single episode, mild; H53.461 Homonymous bilateral field defects, right side; M25.511 Pain in right shoulder; M25.512 Pain in left shoulder; M25.562 Pain in left knee; R80.9 Proteinuria, unspecified; R31.9 Hematuria, unspecified

== ENCOUNTER → 2024-06-22 14:16 | Outpatient (BNVA) | payer OTHER, SELFPAY | PROVIDERS: PCP Internal Medicine; Visit Provider Internal Medicine | DX: E11.9 Type 2 diabetes mellitus without complications (principal); E78.5 Hyperlipidemia, unspecified; I10 Essential (primary) hypertension; F32.0 Major depressive disorder, single episode, mild; H53.461 Homonymous bilateral field defects, right side; M25.511 Pain in right shoulder; M25.512 Pain in left shoulder; M25.562 Pain in left knee; R80.9 Proteinuria, unspecified; R31.9 Hematuria, unspecified | CPT/HCPCS: 83036; 96127; 99212 ==

== ENCOUNTER 2024-06-28 10:20 | Outpatient (REF) | payer OTHER, SELFPAY ==
--- OUTSIDE RECORDS SUMMARY | 2024-06-28 14:00 | XMS_ITS | Clinical Summary ---
Author Organization [facility] Address [address] [place] [address] Care Team Providers Care Foiling Machine Operator Name Role Phone Unavailable Primary Care Provider [...] Problems Problem Noted Date Diagnosed Date Diabetes ([facility]) 06/06/2022 Depression 06/06/2022 Social History Tobacco Use [...] Examination 06/09/2023 06/06/2022 Hypertension Screening (#1) 07/03/2023 [id number] ( - season) 2023 Imm-Influenza (#1) 2023 [...] Most Recently Relevant to Health Maintenance Insurance [place] MEDICA[place] DENT[place] [facility] - DENTAL
--- OUTSIDE RECORDS SUMMARY | 2024-06-28 14:00 | XMS_ITS | Clinical Summary ---
Author Organization [facility] Address [address] [place] [address] Care Team Providers Care Director Of Strategic Initiatives Name Role Phone Unavailable Primary Care Provider [...]
[2024-06-28 18:40] LABS: Appearance Urine Clear; Color Urine Yellow; Glucose Urine UA >=1000 mg/dL (Negative); Leukocyte Esterase Urine Negative (Negative); Nitrite Urine Negative (Negative); PH 6.5 (5.0-9.0); Specific Gravity - Urine >= 1.030 (1.005-1.025); UMIC TRIGGER UA YES; Urine Blood Negative (Negative); Urine Ketones Negative (Negative); Urine Protein Negative (Neg-Trace)
[2024-06-28 18:45] LABS: Creatinine Urine 63.91 mg/dL; Protein/Creatinine Ratio, Ur 0.22 (<0.2); Total Protein Urine Random 14 mg/dL (<12)
[2024-06-28 18:55] LABS: Anion Gap 14 (12-20); Blood Urea Nitrogen 11 mg/dL (9-16); Calcium 9.1 mg/dL (8.4-10.2); Carbon Dioxide 24 mmol/L (22-29); Chloride 106 mmol/L (96-108); Estimated Glomerular Filt Rate > 60; Potassium 3.7 mmol/L (3.3-5.1); Sodium 140 mmol/L (135-145); Uric Acid 2.8 mg/dL (3.4-7.0)
[2024-06-28 18:57] LABS: Bacteria Urine None Seen (None Seen); Hyaline Casts Urine 0-2 /LPF (0-2); RBC Urine 0-2 /HPF (0-2); Squamous Epithelial Cell Urine 0-2 /HPF (0-2)
[2024-06-29 08:32] LABS: HBc Num1 0.16 S/CO (0.00-0.79); HBsAGNum1 0.27 S/CO (0.00-0.99); Hepatitis B Core Antibody Nonreactive (Nonreactive); Hepatitis B Surface Antigen Negative (Negative)
[2024-06-29 21:02] LABS: Complement C3 130 mg/dL (82-185)
[2024-06-30 22:47] LABS: Anti DNA DS Antibody 4 IU/mL; Anti Glomerular Basement Memb <1.0 AI; Myeloperoxidase Antibody <1.0 AI; Proteinase 3 PR3 Antibodies <1.0 AI
[2024-07-01 16:44] LABS: IgA 194 mg/dL (70-320); IgG 1344 mg/dL (600-1540); IgM 162 mg/dL (50-300)
[2024-07-07 06:22] LABS: Phospholipase A2 IgG ELISA <4 RU/mL; Phospholipase A2 IgG IFA NEGATIVE (NEGATIVE)
== END 2024-06-28 10:21 | disposition home or self-care (01) ==
LOC: HO.HKASLDS 10:20
PROVIDERS: PCP Internal Medicine; Visit Provider Internal Medicine Nephrology
DX: I10 Essential (primary) hypertension (principal); R80.9 Proteinuria, unspecified; N20.0 Calculus of kidney
CPT/HCPCS: 36415; 80051; 81001; 82310; 82565; 82570; 82784; 83520; 84156; 84520; 84550; 86021; 86160; 86225; 86255; 86334; 86704; 87340; 99202

== ENCOUNTER 2024-06-28 10:20 | Outpatient (AMB) | payer OTHER, SELFPAY ==
--- NOTE | 2024-06-28 10:46 | HO.NEPHOV_ITS ---
Vital Signs 06/28/24 10:49 Height 5 ft 10.5 in Weight 188 lb 2 oz BMI 26.6 BP 124/70 Blood Pressure Location Lt brachial Position Sitting Pulse 68 Pulse Source Pulse Oximeter Pulse Oximetry (%) 96 Oxygen Delivery Method Room Air Intake Visit Reasons: INP: Proteinuria-Conf Digital Associate Media Director Required: Yes Digital Associate Media Director Language: Enterprise Resource Analyst Services: Digital Associate Media Director Present Digital Associate Media Director Name: Tee [phone] Accompanied by: Self / Same As Patient Allergies No Known Allergies Allergy (Verified 06/28/24 10:48) HPI Comments Details: I had the pleasure of seeing Duglas in consultation for proteinuria. He is from [facility] and has immigrated to [facility] couple years ago. He has a diabetic and has hypertension. His hemoglobin A1c has been under 7 and his blood pressure has been at goal. He has history of nephrolithiasis. He reports recent urinary tract concerns with symptoms of hematuria. He is due to see a urologist. He he denies coronary artery disease, carotid stenosis, congestive heart failure, CVA, CHF, PAD or history of GRISELDA. He does not take any excessive nonsteroidal anti-inflammatories and maintain good hydration. He denies any chest pain, shortness of breath, paroxysmal nocturnal dyspnea, orthopnea, pedal edema, epistaxis, joint pains, photosensitivity or skin rashes. He feels well [facility] Surgical History H/O colonoscopy Cataract H/O lithotripsy History of tonsillectomy History of knee surgery Family History Father Cancer Mother Alzheimer disease Family/Other Mental health disorder Social History Housing: Apartment Alcohol intake: current Alcohol intake frequency: holidays/special occasions only Alcohol type: wine Patient Tobacco Use Status: Never used Tobacco e-Cigarette/Vaping Use: Never Used Second Hand Smoke Exposure: No service: No Current occupational status: unemployed Cognitive needs: No Hearing needs: No Vision needs: No Review of Systems Const All systems reviewed & are unremarkable except as noted in HPI and below Physical Exam Vital Signs: Last Vital Signs Pulse 68 06/28/24 10:49 BP 124/70 06/28/24 10:49 Pulse Ox 96 06/28/24 10:49 Oxygen Delivery Method Room Air 06/28/24 10:49 BMI result Body Mass Index 26.6 Const General: comfortable and no acute distress Orientation/consciousness: patient oriented x3 HEENT Head: Yes normocephalic Mouth: Normal oral and palatal mucosa present Eyes EOM: EOMs intact bilaterally Neck Neck: Yes supple Resp Auscultation: clear to auscultation bilaterally Cardio Jugular venous distension: no JVD Rate: regular rate Heart sounds: Murmur heart sound present GI Palpation (GI): Soft to palpation Auscultation: normal bowel sounds General: Yes no CVA tenderness Back/Spine/Pelvis Back: no CVA tenderness Skin General skin exam: no rashes or lesions noted Neuro General: patient oriented x3 and moves all extremities Extrem General: Yes no pedal edema Results Reviewed Nephrology Results: Hgb 13.9 g/dl (14.0-18.0) L 06/21/24 WBC 5.1 X10*3/uL (4.8-10.8) 06/21/24 Plt Count 164 X10*3/uL (160-400) 06/21/24 Sodium 140 mmol/L (135-145) 06/28/24 Potassium 3.7 mmol/L (3.3-5.1) 06/28/24 Chloride 106 mmol/L (96-108) 06/28/24 Carbon Dioxide 24 mmol/L (22-29) 06/28/24 BUN 11 mg/dL (9-16) 06/28/24 Creatinine 0.71 mg/dL (0.5-1.4) 06/28/24 Calcium 9.1 mg/dL (8.4-10.2) 06/28/24 Urine Protein Negative mg/dL (Neg-Trace) 06/28/24 Urine Creatinine 63.91 mg/dL 06/28/24 Protein/Creatinin Ratio 0.22 (<0.2) H 06/28/24 Assessment & Plan Assessment & Plan (1) Essential hypertension: Code(s): I10 - Essential (primary) hypertension Category: Medical (2) Microalbuminuria: Code(s): R80.9 - Proteinuria, unspecified Category: Medical (3) Renal calculi: Code(s): N20.0 - Calculus of kidney Category: Medical Plan 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 His renal functions are normal. He is on ARB as well as SGLT2 inhibitor. His blood pressure is at goal. He does not take any excessive nonsteroidal anti-inflammatories. I have ordered imaging studies as well as blood work and urine studies. He should maintain good hydration. I would not make any medication changes today. He has a urology appointment for workup for history of hematuria. Given his age he needs a cystoscopy. All these have been explained in detail. Answered all questions. Follow-up appointment given Orders: Orders Protein Creatinine Ratio, Ur Today I10 - Essential (primary) hypertension, R80.9 - Proteinuria, unspecified Electrolytes Today I10 - Essential (primary) hypertension, R80.9 - Proteinuria, unspecified Hepatitis B Core Antibody Today I10 - Essential (primary) hypertension, R80.9 - Proteinuria, unspecified Hepatitis B Surface Antigen Today I10 - Essential (primary) hypertension, R80.9 - Proteinuria, unspecified Proteinase 3 PR3 Antibodies Today I10 - Essential (primary) hypertension, R80.9 - Proteinuria, unspecified Complement C3 Today I10 - Essential (primary) hypertension, R80.9 - Proteinuria, unspecified Phospholipase A2 Receptor Pnl Today I10 - Essential (primary) hypertension, R80.9 - Proteinuria, unspecified US renal BI 1 Month I10 - Essential (primary) hypertension, R80.9 - Proteinuria, unspecified Uric Acid Today I10 - Essential (primary) hypertension, N20.0 - Calculus of kidney, R80.9 - Proteinuria, unspecified UA and rflx microscopic Today I10 - Essential (primary) hypertension, R80.9 - Proteinuria, unspecified Creatinine Today I10 - Essential (primary) hypertension, R80.9 - Proteinuria, unspecified Blood Urea Nitrogen Today I10 - Essential (primary) hypertension, R80.9 - Proteinuria, unspecified Calcium Today I10 - Essential (primary) hypertension, R80.9 - Proteinuria, unspecified Anti DNA DS Antibody Today I10 - Essential (primary) hypertension, R80.9 - Proteinuria, unspecified Myeloperoxidase Antibody Today I10 - Essential (primary) hypertension, R80.9 - Proteinuria, unspecified Anti Glomerular Basement Memb Today I10 - Essential (primary) hypertension, R80.9 - Proteinuria, unspecified Complement C4 Today I10 - Essential (primary) hypertension, R80.9 - Proteinuria, unspecified Immunofixation Pnl, Serum Today I10 - Essential (primary) hypertension, R80.9 - Proteinuria, unspecified Coding Level of Care Code New Pt Level 4 (15672) Diagnoses Essential hypertension I10 Microalbuminuria R80.9 Renal calculi N20.0
[2024-06-28 10:49] VITALS: BP 124/70; PULSE 68; O2SAT 96; BMI 26.6
--- OUTSIDE RECORDS SUMMARY | 2024-06-28 12:07 | XMS_ITS | Clinical Summary ---
Author Organization [facility] Address [address] [place] [address] Care Team Providers Care Route Deliverer Name Role Phone Unavailable Primary Care Provider [...] Problems Problem Noted Date Diagnosed Date Diabetes ([facility]) 06/06/2022 Depression 06/06/2022 Social History Tobacco [...] Examination 06/09/2023 06/06/2022 Hypertension Screening (#1) 07/03/2023 [id number] ( - season) 2023 Imm-Influenza (#1) 2023 [...] Most Recently Relevant to Health Maintenance Insurance [place] MEDICAID DENTAL [facility] - DENTAL
--- OUTSIDE RECORDS SUMMARY | 2024-06-28 12:07 | XMS_ITS | Clinical Summary ---
Author Organization [facility] Address [address] [place] [address] Care Team Providers Care Financial Agent Name Role Phone Unavailable Primary Care Provider [...]
== END 2024-06-28 11:32 | disposition home or self-care (01) ==
LOC: HO.HKAS 10:20
PROVIDERS: PCP Internal Medicine; Visit Provider Internal Medicine Nephrology
DX: I10 Essential (primary) hypertension (principal); R80.9 Proteinuria, unspecified; N20.0 Calculus of kidney
CPT/HCPCS: 99204

== ENCOUNTER 2024-08-02 14:01 | Outpatient (REF) | payer OTHER, SELFPAY ==
--- NOTE | ~2024-08-02 | US_ITS ---
EXAMINATION: US KIDNEY BILATERAL HISTORY: R80.9 - Proteinuria, unspecified TECHNIQUE: Real-time grayscale ultrasound imaging of the kidneys was performed and images were reviewed. COMPARISON: There are no prior studies for comparison. FINDINGS: Right kidney: The right kidney measures 10.8 x 7.0 x 5.7 cm. Renal parenchymal echotexture and thickness are normal. There are cysts in the interpolar region measuring 6 x 4 x 5 mm and 9 x 5 x 5 mm. There is a probable nonobstructing 3 mm calculus at the lower pole. There is no hydronephrosis. Left Kidney: The left kidney measures 10.9 x 5.7 x 5.4 cm. Renal parenchymal echotexture and thickness are normal. There is a cyst in the interpolar region measuring 7 x 5 x 5 mm. There is a 3 mm nonobstructing calculus at the upper pole. There is no hydronephrosis. US/US renal BI IMPRESSION: Subcentimeter cysts bilaterally. Tiny nonobstructing bilateral renal calculi as described. No hydronephrosis. Electronically signed by: Trip Bliss MD 08/02/2024 02:42 PM EDT
--- OUTSIDE RECORDS SUMMARY | 2024-08-02 15:20 | XMS_ITS | Clinical Summary ---
Author Organization [facility] Address [address] [place] [address] Care Team Providers Care Doctor Of Nurse Anesthesia Practice Name Role Phone Unavailable Primary Care Provider [...] Vaccines (1 of 2) 09/12/1997 RSV Immunization Adult Patie nts (1 - 1-dose 75+ series) 09/12/2022 Cholesterol Screening (Lipid Panel) 04/24/2023 Depression Screening 04/24/2023 Falls Risk Assessment 04/24/2023 Hepatitis C Screening 04/24/2023 Social Influencers of Health Screening 04/24/2023 COVID-19 Vaccine ( - 2023-2 5 season) 2023 Influenza Vaccine (Season Ended) 2024 HIB Vaccines Aged Out No longer eligi [...] age to complete this topic Meningococcal B Vaccine Aged Out No l onger eligible based on patient's age to complete this topic RSV Immunization Patients Un landy 20 months Aged Out No longer eligible b ased on patient's age to complete this topic Varicella Vaccines Aged Out No longer eligible based on patient's age to complete this topic
--- OUTSIDE RECORDS SUMMARY | 2024-08-02 15:20 | XMS_ITS | Clinical Summary ---
Author Organization [facility] Address [address] [place] [address] Care Team Providers Care Miniature Set Constructor Name Role Phone Unavailable Primary Care Provider [...] Problems Problem Noted Date Diagnosed Date Diabetes ([facility]) 06/06/2022 Depression 06/06/2022 Social History Tobacco [...] Examination 06/09/2023 06/06/2022 Hypertension Screening (#1) 07/03/2023 [id number] ( - season) 2023 Imm-Influenza (#1) 2023 [...] Most Recently Relevant to Health Maintenance Insurance [place] MEDICAID DENT[place] [facility] - DENTAL
== END 2024-08-02 14:02 | disposition home or self-care (01) ==
LOC: HO.US 14:01
PROVIDERS: PCP Internal Medicine; Visit Provider Internal Medicine Nephrology
DX: R80.9 Proteinuria, unspecified (principal); I10 Essential (primary) hypertension
CPT/HCPCS: 76775

== ENCOUNTER → 2024-08-02 14:03 | Outpatient (BNV) | payer OTHER, SELFPAY | PROVIDERS: PCP Internal Medicine; Visit Provider Radiology Diagnostic Radiology | DX: N28.1 Cyst of kidney, acquired (principal); N20.0 Calculus of kidney | CPT/HCPCS: 76775 ==

== ENCOUNTER 2024-08-04 08:45 | Outpatient (REF) | payer OTHER, SELFPAY ==
--- NOTE | ~2024-08-04 | XR_ITS ---
CLINICAL HISTORY: Bilateral knee pain Three views of each knee Comparison: None Findings: Right knee: Bones intact. No dislocations. Severe medial and patellofemoral compartment degenerative change. No joint effusion. No radiopaque foreign body. Left knee: Bones intact. No dislocations. Severe tricompartmental degenerative change. No joint effusion. No radiopaque foreign body. IMPRESSION: Advanced degenerative changes bilaterally, [id number]. This document has been electronically signed by: Jean Paul Moses MD on 08/05/2024 10:33:03
--- OUTSIDE RECORDS SUMMARY | 2024-08-09 09:07 | XMS_ITS | Clinical Summary ---
Author Organization [facility] Address [address] [place] [address] Care Team Providers Care Speech Language Pathologist Prn Name Role Phone Unavailable Primary Care Provider [...] Problems Problem Noted Date Diagnosed Date Diabetes ([facility]) 06/06/2022 Depression 06/06/2022 Social History Tobacco [...] Examination 06/09/2023 06/06/2022 Hypertension Screening (#1) 07/03/2023 [id number] ( - season) 2023 Imm-Influenza (#1) 2023 [...] Most Recently Relevant to Health Maintenance Insurance [place] MEDICA[place] [facility] - DENTAL
--- OUTSIDE RECORDS SUMMARY | 2024-08-09 09:07 | XMS_ITS | Clinical Summary ---
Author Organization [facility] Address [address] [place] [address] Care Team Providers Care Concrete Laborer Name Role Phone Unavailable Primary Care Provider [...]
== END 2024-08-04 08:46 | disposition home or self-care (01) ==
LOC: HO.HOSX 08:45
PROVIDERS: Visit Provider Orthopaedic Surgery
DX: M17.0 Bilateral primary osteoarthritis of knee (principal); M25.561 Pain in right knee; M25.562 Pain in left knee; M25.311 Other instability, right shoulder
CPT/HCPCS: 73562; 99202

== ENCOUNTER 2024-08-04 12:15 | Outpatient (AMB) | payer OTHER, SELFPAY ==
--- NOTE | 2024-08-04 12:37 | A.OFFVIS_ITS ---
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 The patient describes his pains as sharp in nature. He has had cortisone injections given into both of his knees. The most recent set of injections gave him minimal relief. He has failed the last 3 months of conservative treatment which has included a home exercise program, physical therapy exercises, Tylenol and anti-inflammatory medicines. The patient states that he injured his right shoulder this past winter when he fell on the ice. Since that time he has had weakness when lifting his right hand above shoulder height. He has tried physical therapy exercises which aggravated his pain. Product Safety Consultant Required: Yes Product Safety Consultant Language: Fire Protection Specialist Services: Product Safety Consultant Present Product Safety Consultant Name: ZITA Benjamin/BALDEV Information Interpreted: non-clinical & clinical Allergies No Known Allergies Allergy (Verified 08/04/24 12:38) Medication List - Last Reconciled 08/04/24 by Rm Hairston MD atorvastatin 20 mg PO DAILY 90 days candesartan 32 mg PO DAILY 90 days cholecalciferol (vitamin D3) 50 mcg PO DAILY 90 days clotrimazole 1% 1 appl topical BID PRN empagliflozin (Jardiance) 10 mg PO DAILY 90 days metformin ER 500 mg PO BID 90 days nifedipine ER 30 mg PO DAILY 90 days polyethylene glycol 3350 (Gavilax) 17 grams PO DAILY PRN sertraline 25 mg PO DAILY 90 days tamsulosin 0.8 mg PO DAILY timolol maleate 0.5% 1 drp ophthalmic (eye) BID PFSH Surgical History H/O colonoscopy Cataract H/O lithotripsy History of tonsillectomy History of knee surgery Family History Father Cancer Mother Alzheimer disease Family/Other Mental health disorder Social History Housing: Apartment Alcohol intake: current Alcohol intake frequency: holidays/special occasions only Alcohol type: wine Patient Tobacco Use Status: Never used Tobacco e-Cigarette/Vaping Use: Never Used Second Hand Smoke Exposure: No service: No Current occupational status: unemployed Cognitive needs: No Hearing needs: No Vision needs: No Physical Exam Vital Signs: BMI result Body Mass Index 26.6 Const Other: Well-nourished well-developed very friendly male awake alert and oriented x3 in no acute distress Extrem Other: Right shoulder examination shows decreased range of motion when compared to his left shoulder, 4/5 strength with supraspinatus testing, positive impingement signs, no instability Bilateral knee examination shows minimal effusions, palpable crepitus with range of motion, pain with range of motion, no instability Results Reviewed Results Reviewed: X-rays of the patient's bilateral knee show joint space narrowing, subchondral sclerosis, no acute bony abnormalities Assessment & Plan Assessment & Plan (1) Rotator cuff insufficiency of right shoulder: Code(s): M25.311 - Other instability, right shoulder Category: Medical (2) Osteoarthritis of left knee: Code(s): M17.12 - Unilateral primary osteoarthritis, left knee Category: Medical (3) Osteoarthritis of right knee: Code(s): M17.11 - Unilateral primary osteoarthritis, right knee Category: Medical Plan Mr. Melo presents with bilateral knee pains due to osteoarthritis as well as right shoulder pain and weakness due to impingement syndrome and possible rotator cuff tearing. Thus, I will send the patient for an MRI of his right shoulder for further evaluation. I will also see whether or not the patient's insurance company will cover a viscosupplementation injection, such as Durolane, for both of his knees. I will see the patient back once the injections are available and the MRI is completed. Feel free to call me at any time should questions regarding his orthopedic management arise. Thank you very much for asking me to see this very friendly gentleman. I spent 22 minutes in reviewing the patient's records and imaging studies, seeing the patient and documenting in the medical record. Orders: Orders XR Knee Arsen 3V Today M25.561 - Pain in right knee, M25.562 - Pain in left knee MR shoulder RT wo con Today M25.311 - Other instability, right shoulder Coding Level of Care Code New Pt Level 3 (22510) Complex EM visit Add On G2211 Diagnoses Rotator cuff insufficiency of right shoulder M25.311 Osteoarthritis of left knee M17.12 Osteoarthritis of right knee M17.11
[2024-08-04 12:38] VITALS: BMI 26.6
--- OUTSIDE RECORDS SUMMARY | 2024-08-04 13:36 | XMS_ITS | Clinical Summary ---
Author Organization [facility] ity Address [address] [place] [address] Care Team Providers Care Barrel Bridge Assembler Name Role Phone Unavailable Primary Care Provider [...]
--- OUTSIDE RECORDS SUMMARY | 2024-08-04 13:36 | XMS_ITS | Clinical Summary ---
Author Organization [facility] Address [address] [place] [address] Care Team Providers Care Environmental Services Floor Tech Name Role Phone Unavailable Primary Care Provider [...] Problems Problem Noted Date Diagnosed Date Diabetes ([facility]) 06/06/2022 Depression 06/06/2022 Social History Tobacco Use [...] Examination 06/09/2023 06/06/2022 Hypertension Screening (#1) 07/03/2023 [id number] ( - season) 2023 Imm-Influenza (#1) 2023 [...] Most Recently Relevant to Health Maintenance Insurance [place] MEDICAID DENT[place] [facility] - DENTAL
== END 2024-08-04 13:04 | disposition home or self-care (01) ==
LOC: HO.HOS 12:15
PROVIDERS: PCP Internal Medicine; Visit Provider Orthopaedic Surgery
DX: M25.311 Other instability, right shoulder (principal); M75.41 Impingement syndrome of right shoulder; M17.0 Bilateral primary osteoarthritis of knee
CPT/HCPCS: 99203; G2211

== ENCOUNTER → 2024-08-04 12:16 | Outpatient (BNV) | payer OTHER, SELFPAY | PROVIDERS: Visit Provider Radiology Vascular & Interventional Radiology | DX: M17.0 Bilateral primary osteoarthritis of knee (principal) | CPT/HCPCS: 73562 ==

== ENCOUNTER 2024-08-17 15:13 | Outpatient (REF) | payer OTHER, SELFPAY ==
--- OUTSIDE RECORDS SUMMARY | 2024-08-17 15:53 | XMS_ITS | Clinical Summary ---
Author Organization [facility] Address [address] [place] [address] Care Team Providers Care Sheet Metal Assembler And Riveter Name Role Phone Unavailable Primary Care Provider [...] Problems Problem Noted Date Diagnosed Date Diabetes ([facility]) 06/06/2022 Depression 06/06/2022 Social History Tobacco Use [...] Examination 06/09/2023 06/06/2022 Hypertension Screening (#1) 07/03/2023 [id number] ( - season) 2023 Imm-Influenza (#1) 2023 [...] Most Recently Relevant to Health Maintenance Insurance [place] MEDICA[place] DENT[place] [facility] - DENTAL
--- OUTSIDE RECORDS SUMMARY | 2024-08-17 15:53 | XMS_ITS | Clinical Summary ---
Author Organization [facility] Address [address] [place] [address] Care Team Providers Care Reading Tutor Name Role Phone Unavailable Primary Care Provider [...]
== END 2024-08-17 15:14 | disposition home or self-care (01) ==
LOC: HO.LNP 15:13
PROVIDERS: PCP Internal Medicine; Visit Provider Nurse Practitioner Family
DX: R31.9 Hematuria, unspecified (principal); R33.9 Retention of urine, unspecified
CPT/HCPCS: 51798; 81003; 99202

== ENCOUNTER 2024-08-17 15:13 | Outpatient (AMB) | payer OTHER, SELFPAY ==
--- OUTSIDE RECORDS SUMMARY | 2024-08-17 15:19 | XMS_ITS | Clinical Summary ---
Author Organization [facility] Address [address] [place] [address] Care Team Providers Care Coining Press Operator Name Role Phone Unavailable Primary Care [...]
--- OUTSIDE RECORDS SUMMARY | 2024-08-17 15:19 | XMS_ITS | Clinical Summary ---
Author Organization [facility] Address [address] [place] [address] Care Team Providers Care Trade Manager Name Role Phone Unavailable Primary Care Provider [...] Problems Problem Noted Date Diagnosed Date Diabetes ([facility]) 06/06/2022 Depression 06/06/2022 Social History Tobacco [...] Examination 06/09/2023 06/06/2022 Hypertension Screening (#1) 07/03/2023 [id number] ( - season) 2023 Imm-Influenza (#1) 2023 [...] Most Recently Relevant to Health Maintenance Insurance [place] MEDICA[place] DENT[place] [facility] - DENTAL
--- NOTE | 2024-08-17 15:48 | A.OFFVIS_ITS ---
Intake Visit Reasons: BPH/hematuria Intake Note: New Patient presents for initial visit for BPH, Hematuria Urology Medications: tamsulosin Blood Thinner: none PVR: 159ml's Fig Bar Machine Operator Required: Yes Fig Bar Machine Operator Services: Fig Bar Machine Operator Present Fig Bar Machine Operator Name: RED ORTEGAPUJA Accompanied by: Self / Same As Patient Allergies No Known Allergies Allergy (Verified 08/17/24 19:44) Medication List - Last Reconciled 08/17/24 by UVALDO Samuels atorvastatin 20 mg PO DAILY 90 days candesartan 32 mg PO DAILY 90 days cholecalciferol (vitamin D3) 50 mcg PO DAILY 90 days clotrimazole 1% 1 appl topical BID PRN empagliflozin (Jardiance) 10 mg PO DAILY 90 days metformin ER 500 mg PO BID 90 days nifedipine ER 30 mg PO DAILY 90 days polyethylene glycol 3350 (Gavilax) 17 grams PO DAILY PRN sertraline 25 mg PO DAILY 90 days terazosin 5 mg PO BEDTIME 30 days timolol maleate 0.5% 1 drp ophthalmic (eye) BID HPI Comments Details: Duglas is a 78-year-old Mosotho-speaking male patient of Dr. Zheng. He has a past medical history of diabetes, hypertension, hyperlipidemia, glaucoma, depression, anxiety and constipation. He presents to the office today as a new patient for ongoing lower urinary tract symptoms he has been experiencing. In discussion with the patient today he reports having followed up with his PCP for UTI like symptoms late last year at which time recommendations were made for urology referral for further assessment evaluation. In review of patient's chart it appears urine cultures are as follows: 11/20 Staphylococcus epidermis, 02/20 Staphylococcus epidermis/strep agalactie, 06/21 strep agalactie He reports feeling since he initiated Flomax as prescribed by PCP he has had improvement in urinary symptoms he had been experiencing with weak urinary stream and feelings of incomplete bladder emptying. In office urinalysis results reviewed with the patient today. PVR 159 mL. We did discussed the importance of management and diabetes for improvement in lower urinary tract symptoms as well as overall health and well-being. We discussed potential causes of lower urinary tract symptoms patient is experiencing as well as further treatment options and risks and benefits of these treatment options. 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 TABITHA offered however deferred. We discussed obtaining retroperitoneal ultrasound and PSA for further assessment evaluation. We also discuss trial of terazosin given mildly elevated PVR during today's office visit. All questions were answered. He denies incontinence, hematuria, dysuria, foul smelling urine, flank pain, fever, and or chills. PFSH Surgical History H/O colonoscopy Cataract H/O lithotripsy History of tonsillectomy History of knee surgery Family History Father Cancer Mother Alzheimer disease Family/Other Mental health disorder Social History Housing: Apartment Alcohol intake: current Alcohol intake frequency: holidays/special occasions only Alcohol type: wine Patient Tobacco Use Status: Never used Tobacco e-Cigarette/Vaping Use: Never Used Second Hand Smoke Exposure: No service: No Current occupational status: unemployed Cognitive needs: No Hearing needs: No Vision needs: No Review of Systems Const All systems reviewed & are unremarkable except as noted in HPI and below Physical Exam Const General: cooperative, healthy appearing, comfortable, no acute distress, well developed, alert and awake Orientation/consciousness: patient oriented x3 Limitations: language barrier HEENT Head: Yes normal to inspection, Yes normocephalic and Yes atraumatic Ears: hearing grossly normal bilaterally Eyes General: appearance normal, both eyes and all related structures Neck Neck: Yes normal visual inspection and Yes trachea midline Chest Chest palpation & inspection: normal inspection of the chest Resp Effort & Inspection: normal respiratory effort and able to speak in complete sentences Cardio Rate: regular rate GI Inspection: Yes normal to inspection General: Yes no CVA tenderness Back/Spine/Pelvis Back: no CVA tenderness Skin General skin exam: no rashes or lesions noted Neuro General: patient oriented x3 Extrem General: Yes normal to inspection Psych Appearance: grossly normal and well kempt Mental Status: mental status grossly normal Speech and movement: Normal speech and movement present and Clear speech present Affect: normal affect Attitude: cooperative Thought process: Normal thought process present Thought content: Normal thought content present Insight: Fair insight present (Psych) Judgement: Fair judgement present (Psych) Office Procedures Post Void Residual Post Residual Void Post Void Residual (PVR): [id number] Void Residual by ultrasound Results AMB Urinalysis, Automated UA Leukoctes 0 Yinka/uL Last Edit by Swarm on 08/17/24 16:00 UA Nitrite Last Edit by Swarm on 08/17/24 16:00 UA Urobilinogen 0.2 mg/dL Last Edit by Swarm on 08/17/24 16:00 UA Protein 15 mg/dL Last Edit by Swarm on 08/17/24 16:00 UA pH 6.0 Last Edit by Swarm on 08/17/24 16:00 UA Blood 0 Adan/uL Last Edit by Swarm on 08/17/24 16:00 UA Specific [place] 1.015 Last Edit by Swarm on 08/17/24 16:00 UA Ketone Last Edit by Swarm on 08/17/24 16:00 UA Bilirubin 0 mg/dL Last Edit by Swarm on 08/17/24 16:00 UA Glucose 1000 mg/dL Last Edit by Swarm on 08/17/24 16:00 Results Reviewed Results Reviewed: Laboratory Last Values Urine pH (Auto) 6.0 08/17/24 15:51 Specific [place] (Auto) 1.015 08/17/24 15:51 Urine Protein (Auto) 15 mg/dL 08/17/24 15:51 Glucose (UA)(Auto) 1000 mg/dL 08/17/24 15:51 Urine Blood (Auto) 0 Adan/uL 08/17/24 15:51 Urine Bilirubin (Auto) 0 mg/dL 08/17/24 15:51 Urine Urobilinogen (Auto) 0.2 mg/dL 08/17/24 15:51 Leukocyte Esterase (Auto) 0 Yinka/uL 08/17/24 15:51 Assessment & Plan Assessment & Plan (1) Incomplete bladder emptying: Code(s): R33.9 - Retention of urine, unspecified Category: Medical Plan In office urinalysis results reviewed with the patient today; as noted above. PVR 159 mL. Stop Flomax. Start terazosin as discussed and prescribed. We discussed potential causes of lower urinary tract symptoms as well as further treatment options and risks and benefits of these treatment options. Will obtain retroperitoneal ultrasound for further assessment evaluation. Will obtain PSA for further assessment evaluation. We discussed attempting to double void to assist with bladder emptying as well as sitting when urinating to relax pelvis to assist with bladder emptying. We discussed the importance of management and diabetes for improvement in lower urinary tract symptoms as well as overall health and well-being. TABITHA offered however deferred. Follow-up in 1-3 months with labs and imaging; or sooner with any issues, concerns, and or questions. Orders: Orders AMB Urinalysis Automated Today Z13.9 - Encounter for screening, unspecified AMB Post Void Residual by ultrasound Today R31.9 - Hematuria, unspecified Urine Cytology Today R31.9 - Hematuria, unspecified US retroperitoneal comp Today R33.9 - Retention of urine, unspecified Prostate Specific Antigen Today N40.0 - Benign prostatic hyperplasia without lower urinary tract symptoms Medications: New terazosin 5 mg PO BEDTIME 30 days 30 caps 3RF N40.1 - Benign prostatic hyperplasia with lower urinary tract symptoms, R35.0 - Frequency of micturition Patient Instructions: The patient had an opportunity to ask questions regarding the treatment plan. All questions were answered. Physical exam, labs, and imaging were discussed and reviewed in detail. As well as risks, benefits, and discussion of treatment choices. No major barriers to understanding were identified. The patient expressed understanding and agreement with the above treatment plan. The patient was made aware they should contact our office by phone for worsening of their current condition, the appearance of new symptoms, or with any questions or concerns. Compliance is encouraged with any medications and follow up testing that is ordered. It is a privilege to be allowed the opportunity to participate in? your urological care.? Again, if you have any questions or concerns If you have any questions or concerns please do not hesitate to contact me. The office is [phone]. This note is constructed using voice recognition software. While every effort has been made to ensure accuracy live in housekeeper nanny errors may have been included. Yours sincerely, Chandni Resendez, COKEMAN-BC Coding Level of Care Code New Pt Level 4 (37207) Diagnoses Incomplete bladder emptying R33.9 CPT Codes Post Residual Void - PVR CPT Code: 18420-Yiqs Void Residual by ultrasound ([id number])
== END 2024-08-17 16:30 | disposition home or self-care (01) ==
LOC: HO.HUSH 15:13
PROVIDERS: PCP Internal Medicine; Visit Provider Nurse Practitioner Family
DX: R33.9 Retention of urine, unspecified (principal); Z13.9 Encounter for screening, unspecified
CPT/HCPCS: 99204

== ENCOUNTER 2024-08-27 10:35 | Outpatient (REF) | payer OTHER, SELFPAY ==
--- OUTSIDE RECORDS SUMMARY | 2024-08-27 10:45 | XMS_ITS | Clinical Summary ---
Author Organization [facility] Address [address] [place] [address] Care Team Providers Care Manager Cargo Name Role Phone Unavailable Primary Care Provider [...] Noted Date Diagnosed Date Diabetes ([facility]) 06/06/2022 Depression 06/06/2022 Social History Tobacco Use [...] Examination 06/09/2023 06/06/2022 Hypertension Screening (#1) 07/03/2023 [id number] ( - season) 2023 Imm-Influenza (#1) 2023 [...] Most Recently Relevant to Health Maintenance Insurance [place] MED[place] [facility]AL
== END 2024-08-27 10:36 | disposition home or self-care (01) ==
LOC: HO.MRI 10:35
PROVIDERS: PCP Internal Medicine; Visit Provider Orthopaedic Surgery
DX: M25.311 Other instability, right shoulder (principal)
CPT/HCPCS: 73221

== ENCOUNTER → 2024-08-27 10:48 | Outpatient (BNV) | payer OTHER, SELFPAY | PROVIDERS: PCP Internal Medicine; Visit Provider Radiology Diagnostic Radiology | DX: M25.311 Other instability, right shoulder (principal) | CPT/HCPCS: 73221 ==

== ENCOUNTER 2024-08-31 12:11 | Outpatient (AMB) | payer OTHER, SELFPAY ==
[2024-08-31 12:32] VITALS: BMI 26.6
--- NOTE | 2024-08-31 12:32 | A.OFFVIS_ITS ---
Vital Signs 08/31/24 12:32 Height 5 ft 10.5 in Weight 188 lb BMI 26.6 Intake Visit Reasons: OV-RT SHLDR MRI rev, Poss KERLINE Knee Durolane inj Intake Note: Duglas is a 78 year old male who presents with complaints of intermittent right shoulder pain as well as intermittent bilateral knee pains. The patient continues to work out at the gym on a regular basis. He has tried Tylenol which gives him only mild relief. The patient states that his right shoulder discomfort bothers him mostly at night. He reports mild weakness when lifting his right hand above shoulder height. Litigation Legal Assistant Required: Yes Litigation Legal Assistant Language: Inter Com Installer Services: Litigation Legal Assistant Present Litigation Legal Assistant Name: Cassidy ZITA/BALDEV Allergies No Known Allergies Allergy (Verified 08/31/24 12:33) Medication List - Last Reconciled 08/31/24 by Rm Hairston MD atorvastatin 20 mg PO DAILY 90 days candesartan 32 mg PO DAILY 90 days cholecalciferol (vitamin D3) 50 mcg PO DAILY 90 days clotrimazole 1% 1 appl topical BID PRN empagliflozin (Jardiance) 10 mg PO DAILY 90 days metformin ER 500 mg PO BID 90 days nifedipine ER 30 mg PO DAILY 90 days polyethylene glycol 3350 (Gavilax) 17 grams PO DAILY PRN sertraline 25 mg PO DAILY 90 days terazosin 5 mg PO BEDTIME 30 days timolol maleate 0.5% 1 drp ophthalmic (eye) BID PFSH Surgical History H/O colonoscopy Cataract H/O lithotripsy History of tonsillectomy History of knee surgery Family History Father Cancer Mother Alzheimer disease Family/Other Mental health disorder Social History Housing: Apartment Alcohol intake: current Alcohol intake frequency: holidays/special occasions only Alcohol type: wine Patient Tobacco Use Status: Never used Tobacco e-Cigarette/Vaping Use: Never Used Second Hand Smoke Exposure: No service: No Current occupational status: unemployed Cognitive needs: No Hearing needs: No Vision needs: No Physical Exam Vital Signs: BMI result Body Mass Index 26.6 Const Other: Well-nourished well-developed very friendly male awake alert and oriented x3 in no acute distress Extrem Other: Right shoulder examination shows full range of motion when compared to his left shoulder, 4/5 strength with supraspinatus testing, positive impingement signs, no instability Lateral knee examination shows minimal effusions, palpable crepitus with range of motion, pain with range of motion, no instability Results Reviewed Results Reviewed: MRI of the patient's right shoulder shows a large, chronic rotator cuff tear, no acute bony abnormalities Assessment & Plan Assessment & Plan (1) Osteoarthritis of right knee: Code(s): M17.11 - Unilateral primary osteoarthritis, right knee Category: Medical (2) Osteoarthritis of left knee: Code(s): M17.12 - Unilateral primary osteoarthritis, left knee Category: Medical (3) Rotator cuff insufficiency of right shoulder: Code(s): M25.311 - Other instability, right shoulder Category: Medical Plan Mr. Melo presents with right shoulder pain and weakness due to a chronic rotator cuff tear as well as bilateral knee pains due to osteoarthritis. I had a lengthy discussion with the patient regarding the treatment options. I did give him a prescription for meloxicam. He wishes to hold off on an injection at this time. He will contact me prior to his follow-up appointment in 6 weeks should his symptoms worsen in any way. Feel free to call me at any time should questions regarding his orthopedic management arise. I spent 20 minutes in reviewing the patient's records and imaging studies, seeing the patient and documenting in the medical record. Medications: New meloxicam 15 mg PO BEDTIME PRN 30 tabs 3RF pain Coding Level of Care Code Est Pt Level 3 (35229) Complex EM visit Add On G2211 Diagnoses Osteoarthritis of right knee M17.11 Osteoarthritis of left knee M17.12 Rotator cuff insufficiency of right shoulder M25.311
--- OUTSIDE RECORDS SUMMARY | 2024-08-31 12:50 | XMS_ITS | Clinical Summary ---
Author Organization [facility] Address [address] [place] [address] Care Team Providers Care Feed Mill Manager Name Role Phone Unavailable Primary Care [...]
== END 2024-08-31 13:14 | disposition home or self-care (01) ==
LOC: HO.HOS 12:12
PROVIDERS: PCP Internal Medicine; Visit Provider Orthopaedic Surgery
DX: M17.0 Bilateral primary osteoarthritis of knee (principal); M25.311 Other instability, right shoulder
CPT/HCPCS: 99213; G2211

== ENCOUNTER → 2024-08-31 12:11 | Outpatient (BNVA) | payer OTHER, SELFPAY | PROVIDERS: PCP Internal Medicine; Visit Provider Orthopaedic Surgery | DX: M17.0 Bilateral primary osteoarthritis of knee (principal); M25.311 Other instability, right shoulder | CPT/HCPCS: 99212 ==

== ENCOUNTER 2024-09-16 07:27 | Outpatient (REF) | payer OTHER, SELFPAY ==
[2024-09-16 08:10] LABS: Appearance Urine Clear; Color Urine Yellow; Glucose Urine UA >=1000 mg/dL (Negative); Leukocyte Esterase Urine Negative (Negative); Nitrite Urine Negative (Negative); PH 5.5 (5.0-9.0); Specific Gravity - Urine >= 1.030 (1.005-1.025); UMIC TRIGGER UACC YES; Urine Blood Negative (Negative); Urine Ketones Negative (Negative); Urine Protein Trace mg/dL (Neg-Trace)
[2024-09-16 08:15] LABS: Bacteria Urine None Seen (None Seen); Hyaline Casts Urine 0-2 /LPF (0-2); RBC Urine 0-2 /HPF (0-2); Squamous Epithelial Cell Urine 0-2 /HPF (0-2); WBC Urine 0-5 /HPF (0-5)
[2024-09-16 08:20] LABS: Alanine Aminotransferase 25 U/L (0-40); Albumin Level 4.2 g/dL (3.5-5.0); Alkaline Phosphatase 60 U/L (39-117); Anion Gap 11 (12-20); Aspartate Amino Transferase 22 U/L (5-37); Bilirubin Total 0.9 mg/dL (0.0-1.0); Blood Urea Nitrogen 15 mg/dL (9-16); Calcium 8.9 mg/dL (8.4-10.2); Carbon Dioxide 26 mmol/L (22-29); Chloride 107 mmol/L (96-108); Cholesterol 121 mg/dL (<200); Estimated Glomerular Filt Rate > 60; Glucose Fasting 155 mg/dL (60-99); HDL Cholesterol 50 mg/dL (>40); LDL Cholesterol Calculated 55 mg/dL (<100); Potassium 3.6 mmol/L (3.3-5.1); Sodium 140 mmol/L (135-145); Total Protein 6.8 g/dL (6.5-8.0); Triglycerides 80 mg/dL (<150)
[2024-09-16 08:37] LABS: Vitamin D 25-OH Total 30.8 ng/mL (>30)
[2024-09-16 09:20] LABS: Creatinine Urine 121.54 mg/dL; Microalbum/Creatinine Ratio Ur 29.6 ug/mg cr (<30)
== END 2024-09-16 07:28 | disposition home or self-care (01) ==
LOC: HO.LAB 07:27
PROVIDERS: PCP Internal Medicine; Visit Provider Internal Medicine
DX: R80.9 Proteinuria, unspecified (principal); E55.9 Vitamin D deficiency, unspecified; E78.5 Hyperlipidemia, unspecified; E11.9 Type 2 diabetes mellitus without complications; R39.9 Unspecified symptoms and signs involving the genitourinary system
CPT/HCPCS: 36415; 80053; 80061; 81001; 81003; 82043; 82306; 82570

== ENCOUNTER 2024-09-20 10:18 | Outpatient (AMB) | payer OTHER, SELFPAY ==
--- OUTSIDE RECORDS SUMMARY | 2024-09-20 11:25 | XMS_ITS | Clinical Summary ---
Author Organization [facility] Address [address] [place] [address] Care Team Providers Care Dynamo Tender Name Role Phone Unavailable Primary Care Provider [...] Problem Noted Date Diagnosed Date Diabetes ([facility]) 06/06/2022 Depression 06/06/2022 Social History Tobacco [...] Depression Monitoring 1947 Diabetes Foot Exam 1947 Hemoglobin A1c 1947 Hepatitis C Screening 1947 Lipid Screening 1947 Serum Creatinine 1947 Tobacco Screening 1947 Urine Albumin Creatinine Ratio Screening 1947 Retinopathy Screening 09/12/1960 Medicare Annual Wellness Visit 09/12/1965 Imm-DTaP/Tdap/Td (1 - Tdap) 09/12/1966 Imm-Pneumococcal 50+ (1 of 2 - PCV) 09/12/1966 Imm-Zoster, Recombinant (1 of 2) 09/12/1997 Falls Prevention 09/12/2012 Dental BW 06/09/2023 06/06/2022 Dental Examination 06/09/2023 06/06/2022 Hypertension Screening (#1) 07/03/2023 [id number] ( - season) 2023 Alcohol and Drug Screen 03/30/2024 Imm-Influenza (Season Ended) 2024 Dental FMX/Pano 06/09/2027 06/06/2022 Procedures Procedure Name Priority Date/Time Associated Diagnosis Comments Full INTRAORAL - COMP SERIES OF RADIOGRAPHIC IMAGES Routine 06/06/2022 3:40 PM EST Gingivitis, chronic, plaque induced Full COMP ORAL EVALUATION - NEW/ESTABLISHED PATIENT Routine 06/06/2022 3:40 PM EST Gingivitis, chronic, plaque induced from Last 3 Months or Most Recently Relevant to Health Maintenance Insurance [place] MEDICAID DENTAL [facility] - DENTAL
--- NOTE | 2024-09-20 11:30 | HO.NEPHOV ---
Vital Signs 09/20/24 11:31 Height 5 ft 10.5 in Weight 188 lb 8 oz BMI 26.7 BP 126/64 Blood Pressure Location Lt brachial Position Sitting Pulse 68 Pulse Source Pulse Oximeter Pulse Oximetry (%) 95 Oxygen Delivery Method Room Air Intake Visit Reasons: 2mon follow-up w/labs-Conf Intake Note: Patient here for a follow-up, having lower back pain. Facilities Coordinator Required: No Accompanied by: Self / Same As Patient Allergies No Known Allergies Allergy (Verified 09/20/24 11:33) Do you need a note to return to daycare/school/sports/work: No HPI Comments Details: I had the pleasure of seeing Duglas in follow up for proteinuria. He is from [facility] and has immigrated to [place] couple years ago. He has a diabetic and has hypertension. His hemoglobin A1c has been under 7 and his blood pressure has been at goal. He has history of nephrolithiasis. He reports recent urinary tract concerns with symptoms of hematuria. He is due to see a urologist. He he denies coronary artery disease, carotid stenosis, congestive heart failure, CVA, CHF, PAD or history of GRISELDA. He does not take any excessive nonsteroidal anti-inflammatories and maintain good hydration. He denies any chest pain, shortness of breath, paroxysmal nocturnal dyspnea, orthopnea, pedal edema, epistaxis, joint pains, photosensitivity or skin rashes. He feels well COUNT INCLUDES [facility] Surgical History H/O colonoscopy Cataract H/O lithotripsy History of tonsillectomy History of knee surgery Family History Father Cancer Mother Alzheimer disease Family/Other Mental health disorder Social History Housing: Apartment Alcohol intake: current Alcohol intake frequency: holidays/special occasions only Alcohol type: wine Patient Tobacco Use Status: Never used Tobacco e-Cigarette/Vaping Use: Never Used Second Hand Smoke Exposure: No service: No Current occupational status: unemployed Cognitive needs: No Hearing needs: No Vision needs: No Review of Systems Const All systems reviewed & are unremarkable except as noted in HPI and below Physical Exam Vital Signs: Last Vital Signs Pulse 68 09/20/24 11:31 BP 126/64 09/20/24 11:31 Pulse Ox 95 09/20/24 11:31 Oxygen Delivery Method Room Air 09/20/24 11:31 BMI result Body Mass Index 26.7 Const General: comfortable and no acute distress Orientation/consciousness: patient oriented x3 HEENT Head: Yes normocephalic Mouth: Normal oral and palatal mucosa present Eyes EOM: EOMs intact bilaterally Neck Neck: Yes supple Resp Auscultation: clear to auscultation bilaterally Cardio Jugular venous distension: no JVD Rate: regular rate GI Palpation (GI): Soft to palpation Auscultation: normal bowel sounds General: Yes no CVA tenderness Back/Spine/Pelvis Back: no CVA tenderness Skin General skin exam: no rashes or lesions noted Neuro General: patient oriented x3 and moves all extremities Extrem General: Yes no pedal edema Results Reviewed Nephrology Results: Sodium, (135-145) 140 mmol/L 09/16/24 Potassium, (3.3-5.1) 3.6 mmol/L 09/16/24 Chloride, (96-108) 107 mmol/L 09/16/24 Carbon Dioxide, (22-29) 26 mmol/L 09/16/24 BUN, (9-16) 15 mg/dL 09/16/24 Creatinine, (0.5-1.4) 0.82 mg/dL 09/16/24 Calcium, (8.4-10.2) 8.9 mg/dL 09/16/24 Urine Protein, (Neg-Trace) Trace mg/dL 09/16/24 Urine Creatinine 121.54 mg/dL 09/16/24 Renal US 08/02/24 Assessment & Plan Assessment & Plan (1) Essential hypertension: Code(s): I10 - Essential (primary) hypertension Category: Medical (2) Renal calculi: Code(s): N20.0 - Calculus of kidney Category: Medical (3) Microalbuminuria: Code(s): R80.9 - Proteinuria, unspecified Category: Medical (4) Renal cyst: Code(s): N28.1 - Cyst of kidney, acquired Category: Medical Plan 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 His renal functions are normal. He is on ARB as well as SGLT2 inhibitor. His blood pressure is at goal. He does not take any excessive nonsteroidal anti-inflammatories. His blood work and urine studies were reviewed . USS showed subcentimeter cysts bilaterally with tiny nonobstructing bilateral renal calculi. No hydronephrosis.He should maintain good hydration. I would not make any medication changes today. He has seen urology for hematuria. All these have been explained in detail. Answered all questions. Follow-up appointment given Orders: Orders Electrolytes 6 Months I10 - Essential (primary) hypertension, N20.0 - Calculus of kidney, R80.9 - Proteinuria, unspecified Calcium 6 Months I10 - Essential (primary) hypertension, N20.0 - Calculus of kidney, R80.9 - Proteinuria, unspecified Protein Creatinine Ratio, Ur 6 Months I10 - Essential (primary) hypertension, N20.0 - Calculus of kidney, R80.9 - Proteinuria, unspecified Creatinine 6 Months I10 - Essential (primary) hypertension, N20.0 - Calculus of kidney, R80.9 - Proteinuria, unspecified Blood Urea Nitrogen 6 Months I10 - Essential (primary) hypertension, N20.0 - Calculus of kidney, R80.9 - Proteinuria, unspecified Coding Level of Care Code Est Pt Level 4 (19242) Diagnoses Essential hypertension I10 Renal calculi N20.0 Microalbuminuria R80.9 Renal cyst N28.1
[2024-09-20 11:31] VITALS: BP 126/64; PULSE 68; O2SAT 95; BMI 26.7
== END 2024-09-20 12:02 | disposition home or self-care (01) ==
LOC: HO.HKAS 10:18
PROVIDERS: PCP Internal Medicine; Visit Provider Internal Medicine Nephrology
DX: I10 Essential (primary) hypertension (principal); N20.0 Calculus of kidney; R80.9 Proteinuria, unspecified; N28.1 Cyst of kidney, acquired
CPT/HCPCS: 99214

== ENCOUNTER → 2024-09-20 10:18 | Outpatient (BNVA) | payer OTHER, SELFPAY | PROVIDERS: PCP Internal Medicine; Visit Provider Internal Medicine Nephrology | DX: I10 Essential (primary) hypertension (principal); R80.9 Proteinuria, unspecified; N20.0 Calculus of kidney; N28.1 Cyst of kidney, acquired | CPT/HCPCS: 99212 ==

== ENCOUNTER 2024-10-11 12:42 | Outpatient (AMB) | payer OTHER, SELFPAY ==
--- NOTE | 2024-10-11 13:00 | MHC.OFFVIS ---
Vital Signs 10/11/24 13:10 Height 5 ft 10.5 in Weight 188 lb BMI 26.6 BP 104/60 Blood Pressure Location Lt brachial Pulse 79 Pulse Source Pulse Oximeter Pulse Oximetry (%) 97 Oxygen Delivery Method Room Air Intake Visit Reasons: Right shoulder pain Intake Note: Duglas is a 79 year old male who presents with complaints of intermittent discomfort along the lateral aspect of his right shoulder. He reports minimal weakness. The patient states that his symptoms have improved since his last visit. He states that he has been taking ?3 spices? each morning which have given him very good relief. Product Info Specialist Required: Yes Product Info Specialist Language: Collection Support Specialist Name: MjZITA skinner/BALDEV Allergies No Known Allergies Allergy (Verified 09/20/24 11:33) Medication List - Last Reconciled 10/11/24 by Rm Hairston MD atorvastatin 20 mg PO DAILY 90 days candesartan 32 mg PO DAILY 90 days cholecalciferol (vitamin D3) 50 mcg PO DAILY 90 days clotrimazole 1% 1 appl topical BID PRN empagliflozin (Jardiance) 10 mg PO DAILY 90 days meloxicam 15 mg PO BEDTIME PRN metformin ER 500 mg PO BID 90 days nifedipine ER 30 mg PO DAILY 90 days polyethylene glycol 3350 (Gavilax) 17 grams PO DAILY PRN sertraline 25 mg PO DAILY 90 days terazosin 5 mg PO BEDTIME 30 days timolol maleate 0.5% 1 drp ophthalmic (eye) BID [facility] Surgical History H/O colonoscopy Cataract H/O lithotripsy History of tonsillectomy History of knee surgery Family History Father Cancer Mother Alzheimer disease Family/Other Mental health disorder Social History Housing: Apartment Alcohol intake: current Alcohol intake frequency: holidays/special occasions only Alcohol type: wine Patient Tobacco Use Status: Never used Tobacco e-Cigarette/Vaping Use: Never Used Second Hand Smoke Exposure: No service: No Current occupational status: unemployed Cognitive needs: No Hearing needs: No Vision needs: No Physical Exam Const Other: Well-nourished well-developed very friendly male awake alert and oriented x3 in no acute distress Extrem Other: Right shoulder examination shows full range of motion when compared to his left shoulder, 4/5 strength with supraspinatus testing, no instability Results Reviewed Results Reviewed: MRI of the patient's right shoulder shows a large, chronic rotator cuff tear, no acute bony abnormalities Assessment & Plan Assessment & Plan (1) Right shoulder pain: Code(s): M25.511 - Pain in right shoulder Category: Medical Plan Mr. Melo presents with intermittent right shoulder discomfort due to a chronic rotator cuff tear. At this point the patient's symptoms are tolerable to him. We will hold off on a cortisone injection. He will continue with his home exercise program. He will follow up with me on an as-needed basis should his symptoms worsen in any way. Feel free to call me at any time should questions regarding his orthopedic management arise. I spent 20 minutes in reviewing the patient's records and imaging studies, seeing the patient and documenting in the medical record. Coding Level of Care Code Est Pt Level 3 (25522) Complex EM visit Add On G2211 Diagnoses Right shoulder pain M25.511
[2024-10-11 13:10] VITALS: BP 104/60; PULSE 79; O2SAT 97; BMI 26.6
--- OUTSIDE RECORDS SUMMARY | 2024-10-11 13:54 | XMS_ITS | Clinical Summary ---
Author Organization [facility] ity Address [address] [place] [address] Care Team Providers Care Pmp Project Manager Name Role Phone Unavailable Primary Care [...] 2023-2 5 season) 2023 Influenza Vaccine (#1) 2024 HIB Vaccines Aged Out No longer [...]
--- OUTSIDE RECORDS SUMMARY | 2024-10-11 13:54 | XMS_ITS | Clinical Summary ---
Author Organization [facility] Address [address] [place] [address] Care Team Providers Care Scientific Affairs Manager Name Role Phone Unavailable Primary Care [...] Problems Problem Noted Date Diagnosed Date Diabetes ([facility]) 06/06/2022 Depression 06/06/2022 Social History Tobacco Use [...] (1 of 2) 09/12/1997 Falls Prevention 09/12/2012 Imm-RSV (adult) (1 - 1-dose 75+ series) 09/12/2022 Dental BW 06/09/2023 06/06/2022 Dental Examination 06/09/2023 06/06/2022 Hypertension Screening (#1) 07/03/2023 [id number] ( - season) 2023 Alcohol and Drug Screen 03/30/2024 Imm-Influenza (#1) 2024 Dental FMX/Pano 06/09/2027 06/06/2022 Procedures Procedure Name Priority Date/Time Associated Diagnosis Comments Full INTRAORAL - COMP SERIES OF RADIOGRAPHIC IMAGES Routine 06/06/2022 3:40 PM EST Gingivitis, chronic, plaque induced Full COMP ORAL EVALUATION - NEW/ESTABLISHED PATIENT Routine 06/06/2022 3:40 PM EST Gingivitis, chronic, plaque induced from Last 3 Months or Most Recently Relevant to Health Maintenance Insurance [place] MEDICAID DENTAL [facility] - DENTAL Member Subscriber Plan / Payer (Ef fective 2022-Present) Name:Duglas Melo Relation to Subscriber:Self Name:Duglas Melo Payer ID:[id number] Group ID:Not on file Type:Medicare Address: [facility] [address] [id number]
== END 2024-10-11 13:09 | disposition home or self-care (01) ==
LOC: HO.HOS 12:43
PROVIDERS: PCP Internal Medicine; Visit Provider Orthopaedic Surgery
DX: M25.511 Pain in right shoulder (principal)
CPT/HCPCS: 99213; G2211

== ENCOUNTER → 2024-10-11 12:42 | Outpatient (BNVA) | payer OTHER, SELFPAY | PROVIDERS: PCP Internal Medicine; Visit Provider Orthopaedic Surgery | DX: M25.511 Pain in right shoulder (principal) | CPT/HCPCS: 99212 ==

== ENCOUNTER 2024-10-31 09:41 | Outpatient (REF) | payer OTHER, SELFPAY ==
--- NOTE | ~2024-10-31 | US_ITS ---
CLINICAL HISTORY: R33.9 - Retention of urine, unspecified US Renal Comparison: US/SR - US KIDNEY BILATERAL - 08/02/24 14:07 EDT Findings: Right kidney normal size and echotexture, 10.9 cm length. Multiple right renal cysts, largest of which is in the interpolar kidney measuring 8 mm. There are 2 right renal calculi, largest of which is in the superior pole measuring 6 mm. Left kidney normal size and echotexture, 11.1 cm length. Interpolar cyst measuring 8 mm. Mild left hydronephrosis and ureteral dilatation. No right hydronephrosis. Normal color Doppler. Urinary bladder is unremarkable. Prevoid volume 371 next 127 mL. Postvoid volume mL. Bilateral ureteral jets are visualized. Possible prostate mass measuring 17 mm. IMPRESSION: 1. Mild left hydronephrosis and ureteral dilatation. 2. Nonobstructing right renal calculi. 3. Possible prostate mass. 4. Moderate postvoid residual in the urinary bladder. This document has been electronically signed by: Acosta Pollock MD on 10/31/2024 14:47:17
--- OUTSIDE RECORDS SUMMARY | 2024-10-31 10:13 | XMS_ITS | Clinical Summary ---
Author Organization [facility] ity Address [address] [place] [address] Care Team Providers Care State Editor Name Role Phone Unavailable Primary Care Provider [...] series) 09/12/2022 Cholesterol Screening (Lipid Panel) 04/24/2023 Falls Risk Assessment 04/24/2023 Hepatitis C Screening 04/24/2023 Social Influencers of Health Screening 04/24/2023 COVID-19 Vaccine (1 - 2023-2 5 season) 2023 Depression Screening 03/30/2024 Influenza Vaccine (#1) 2024 HIB Vaccines Aged [...]
--- OUTSIDE RECORDS SUMMARY | 2024-10-31 10:13 | XMS_ITS | Clinical Summary ---
Author Organization [facility] Address [address] [place] [address] Care Team Providers Care Corporate Communications Intern Name Role Phone Unavailable Primary Care Provider [...] Problems Problem Noted Date Diagnosed Date Diabetes ([facility]) 06/06/2022 Depression 06/06/2022 Social History Tobacco [...] Examination 06/09/2023 06/06/2022 Hypertension Screening (#1) 07/03/2023 [id number] ( - season) 2023 Alcohol and Drug [...] Most Recently Relevant to Health Maintenance Insurance [place] MED[place] D[place] [facility] - DENTAL Member Subscriber Plan / Payer (Ef fective 2022-Present) Name:Duglas Melo Relation to Subscriber:Self Name:Duglas Melo Payer ID:[id number] Group ID:Not on file Type:Medicare Address: [facility] [address] [id number]
== END 2024-10-31 09:42 | disposition home or self-care (01) ==
LOC: HO.US 09:41
PROVIDERS: PCP Internal Medicine; Visit Provider Nurse Practitioner Family
DX: R33.9 Retention of urine, unspecified (principal)
CPT/HCPCS: 76770

== ENCOUNTER → 2024-10-31 09:43 | Outpatient (BNV) | payer OTHER, SELFPAY | PROVIDERS: PCP Internal Medicine; Visit Provider Radiology Diagnostic Radiology | DX: N28.1 Cyst of kidney, acquired (principal) | CPT/HCPCS: 76770 ==

== ENCOUNTER 2024-11-03 14:26 | Outpatient (AMB) | payer OTHER, SELFPAY ==
--- OUTSIDE RECORDS SUMMARY | 2024-11-03 14:28 | XMS_ITS | Clinical Summary ---
Author Organization [facility] ity Address [address] [place] [address] Care Team Providers Care Equine Pharmacology Technician Name Role Phone Unavailable Primary Care Provider [...]
--- OUTSIDE RECORDS SUMMARY | 2024-11-03 14:28 | XMS_ITS | Clinical Summary ---
Author Organization [facility] Address [address] [place] [address] Care Team Providers Care Collections Officer Name Role Phone Unavailable Primary Care Provider [...] Problems Problem Noted Date Diagnosed Date Diabetes ([facility]) 06/06/2022 Depression 06/06/2022 Social History Tobacco Use [...] Examination 06/09/2023 06/06/2022 Hypertension Screening (#1) 07/03/2023 [id number] ( - season) 2023 Alcohol and Drug [...] Most Recently Relevant to Health Maintenance Insurance [place] MEDICAID DENTAL [facility] - DENTAL Member Subscriber Plan / Payer (Ef fective 2022-Present) Name:Duglas Melo Relation to Subscriber:Self Name:Duglas Melo Payer ID:[id number] Group ID:Not on file Type:Medicare Address: [facility] [address] [id number]
[2024-11-03 14:45] VITALS: BP 110/72; BMI 26.0
--- NOTE | 2024-11-03 14:45 | A.OFFPC_ITS ---
Vital Signs 11/03/24 14:45 Height 5 ft 10.5 in Weight 184 lb BMI 26.0 BP 110/72 Blood Pressure Location Lt brachial Position Sitting Intake Visit Reasons: dm,needs 30 minutes Intake Note: Patient here for a follow up DM Car Pincher Required: No Accompanied by: Self / Same As Patient Allergies No Known Allergies Allergy (Verified 11/03/24 15:11) Medication List - Last Reconciled 11/03/24 by Ivonne Lee MD atorvastatin 20 mg PO DAILY 90 days candesartan 32 mg PO DAILY 90 days cholecalciferol (vitamin D3) 50 mcg PO DAILY 90 days clotrimazole 1% 1 appl topical BID PRN empagliflozin (Jardiance) 10 mg PO DAILY 90 days meloxicam 15 mg PO BEDTIME PRN metformin ER 500 mg PO BID 90 days nifedipine ER 30 mg PO DAILY 90 days polyethylene glycol 3350 (Gavilax) 17 grams PO DAILY PRN sertraline 25 mg PO DAILY 90 days terazosin 5 mg PO BEDTIME 30 days timolol maleate 0.5% 1 drp ophthalmic (eye) BID Tobacco use date assessed: 06/22/24 Fall risk assessment: No Falls in past year Last assessed Fall Risk: 11/03/24 Dental Screening Dental Screen Date: 06/22/24 HPI HPI Comments History of Present Illness Details The patient is a 79-year-old male presenting for follow-up of chronic conditions including diabetes, hypertension, and hyperlipidemia. The patient's diabetes is well-controlled with a recent HbA1c of 6.1%, indicating good glycemic control. He is currently on metformin and Jardiance for diabetes management. Hypertension is managed with candesartan and nifedipine, and recent blood pressure readings have been satisfactory. The patient is also on atorvastatin for hyperlipidemia, with recent labs showing an LDL of 55 mg/dL, which is excellent. The patient has a history of chronic kidney disease and sees a road driver regularly. He avoids NSAIDs like meloxicam due to potential renal harm. He reports a rotator cuff tear with associated muscle atrophy, confirmed by MRI, causing shoulder pain and limited mobility. The patient has not yet seen an audio visual specialist for this issue. The patient has a history of benign prostatic hyperplasia, managed with terazosin, and a recent ultrasound indicated a possible prostatic mass. He is scheduled to follow up with urology on November 17. He experienced a spider bite four days ago, which was initially inflamed but has since improved. [facility] Surgical History H/O colonoscopy Cataract H/O lithotripsy History of tonsillectomy History of knee surgery Family History Father Cancer Mother Alzheimer disease Family/Other Mental health disorder Social History Housing: Apartment Alcohol intake: current Alcohol intake frequency: holidays/special occasions only Alcohol type: wine Patient Tobacco Use Status: Never used Tobacco e-Cigarette/Vaping Use: Never Used Second Hand Smoke Exposure: No service: No Current occupational status: unemployed Cognitive needs: No Hearing needs: No Vision needs: No Questionnaire PHQ-9 Over the last 2 weeks, how often have you been bothered by any of the following problems? 1. Little interest or pleasure in doing things: not at all 2. Feeling down, depressed, or hopeless: not at all 3. Trouble falling or staying asleep, or sleeping too much: not at all 4. Feeling tired or having little energy: not at all 5. Poor appetite or overeating: not at all 6. Feeling bad about yourself - or that you are a failure or have let yourself or your family down: not at all 7. Trouble concentrating on things, such as reading the newspaper or watching television: not at all 8. Moving or speaking so slowly that other people could have noticed. Or the opposite - being so fidgety or restless that you have been moving around a lot more than usual: not at all 9. Thoughts that you would be better off or of hurting yourself in some way: not at all Total score: 0 Depression Screening Interpretation: Negative Depression Screening Done: Yes 50391 - PHQ-9 Billing: Yes Source: Developed by Drs. Trip Mcgee, Talia Valenzuela, Ham Dove and colleagues, with an educational laurie from [employer]. Thrive Questionnaire Date Thrive assessed: 11/02/24 I am a: Patient What is your living situation today?: I choose not to answer this question Within the past 12 months, did the food you bought not last and you didn't have the money to get more?: I choose not to answer this question Within the past 12 months, did you worry whether your food would run out before you got money to buy more?: Sometimes True Do you have trouble paying for medicines?: No Do you have trouble getting transportation to medical appointments?: No Do you have trouble paying your heating and electricity bill?: No Do you have trouble taking care of your child, family member or friend?: No Do you have trouble with day-to-day activities such as bathing, preparing meals, shopping, managing finances, etc.?: No Are you currently unemployed and looking for a job?: I choose not to answer this question Are you interested in more education?: Yes Please select the resources that you would like help with: None Currently or been in a relationship where the following occur: I choose not to answer THRIVE Score: 1 AUDIT C Alcohol Use Questionnaire (AUDIT-C) 1. How often do you have a drink containing alcohol?: Monthly or less 2. How many drinks containing alcohol do you have on a typical day when you are drinking?: 1 or 2 3. How often do you have six or more drinks on one occasion?: Never Total Score: 1 MARLIN-7 AMB Questionnaire MARLIN-7 Date MARLIN - 7 assessed: 06/22/24 Feeling nervous, anxious, or on edge: 0 = Not at all Not being able to stop or control worryin = Not at all Worrying too much about different things: 0 = Not at all Trouble relaxin = Not at all Being so restless that it is hard to sit still: 0 = Not at all Becoming easily annoyed or irritable: 0 = Not at all Feeling afraid as if something awful might happen: 0 = Not at all Total MARLIN-7 score (0-4 normal; 5-9 mild; 10-14 moderate; 15-21 severe): 0 Source: Developed by Drs. Trip Mcgee, Talia Valenzuela, Ham Dove and colleagues, with an educational laurie from [employer]. Review of Systems Const All systems reviewed & are unremarkable except as noted in HPI and below Card Denies chest pain at rest, Denies chest pain with activity, Denies edema, Denies irregular heart rhythm, Denies claudication, Denies dyspnea, Denies dyspnea on exertion, Denies orthopnea, Denies paroxysmal nocturnal dyspnea and Denies slow heart rate Resp Denies cough, Denies dyspnea and Denies dyspnea on exertion GI Denies abdominal pain, Denies change in bowel habits, Denies excessive flatus, Denies nausea and Denies vomiting Physical exam (Primary Care) Vital Signs: Last Vital Signs BP 110/72 11/03/24 14:45 BMI result Body Mass Index 26.0 Tobacco/Smoking Status: Tobacco use Status Tobacco use date assessed 06/22/24 11/03/24 14:49 Patient Tobacco Use Status Never used Tobacco 11/03/24 14:49 e-Cigarette/Vaping Use Never Used 11/03/24 14:49 PHQ-9: PHQ-9 Score PHQ-9: Total score 0 11/03/24 14:49 Depression Screening Interpretation: Negative Thrive Assessment: Date of Thrive Assessment Date Thrive assessed 11/02/24 11/03/24 14:49 Currently or been in a relationship where the following occur: I choose not to answer Resp Effort & Inspection: normal respiratory effort Auscultation: clear to auscultation bilaterally Cardio Jugular venous distension: no JVD Rate: regular rate Rhythm: regular rhythm Heart sounds: S1 normal heart sound present and S2 normal heart sound present Extrem General: Yes full ROM Results AMB Hemoglobin A1c AMB Hemoglobin A1c 6.1 % Last Edit by ZITA Goss on 11/03/24 14:5 6 Results Reviewed Results Reviewed: Laboratory Last Values Hgb A1c (Clinic) 6.1 % (4.0-6.0) H 11/03/24 14:38 Coding Level of Care Code Est Pt Level 4 (15226) Complex EM visit Add On G2211 Diagnoses Mild major depression F32.0 Essential hypertension I10 Hyperlipidemia LDL goal <70 E78.5 Type 2 diabetes mellitus without complication, without long-term current use of insulin E11.9 Diabetes mellitus type: type 2 Diabetes mellitus terminal carman insulin use: without terminal carman use Diabetes mellitus complication status: without complication Additional Codes PHQ-9 - 40076 - PHQ-9 Billing: Yes ([id number]) Time Spent (min) 24 Assessment & Plan Assessment & Plan (1) Mild major depression: Code(s): F32.0 - Major depressive disorder, single episode, mild Category: Medical (2) Essential hypertension: Code(s): I10 - Essential (primary) hypertension Category: Medical (3) Hyperlipidemia LDL goal <70: Code(s): E78.5 - Hyperlipidemia, unspecified Category: Medical (4) Diabetes mellitus: Code(s): E11.9 - Type 2 diabetes mellitus without complications Category: Medical Qualifiers: Diabetes mellitus type: type 2 Diabetes mellitus terminal carman insulin use: without penitentiary use Diabetes mellitus complication status: without complication Qualified Code(s): E11.9 - Type 2 diabetes mellitus without complications Plan The patient's diabetes management will continue with metformin and Jardiance, given the well-controlled HbA1c level. Hypertension and hyperlipidemia are well- managed with current medications, and no changes are necessary at this time. The patient should continue to avoid NSAIDs to prevent renal complications, and regular follow-ups with nephrology are advised. The rotator cuff tear requires orthopedic evaluation, and the patient should consider physical therapy to improve shoulder mobility. The patient is scheduled for a urology follow-up to assess the possible prostatic mass and manage benign prostatic hyperplasia. The recent spider bite should be monitored for any signs of infection, although it is currently improving. Patient was informed and verbally consented to the use of an ambient scribe for clinic note documentation during this visit. Orders: Orders Microalbumin, Random (w Creat) 4 Months R80.9 - Proteinuria, unspecified Complete Blood Count Auto Diff 4 Months D64.9 - Anemia, unspecified AMB Hemoglobin A1c Today E11.9 - Type 2 diabetes mellitus without complications Lipid Panel 4 Months E78.5 - Hyperlipidemia, unspecified Vitamin D 25-OH Total 4 Months E55.9 - Vitamin D deficiency, unspecified IRON PROFILE 4 Months D64.9 - Anemia, unspecified Comprehensive [place]. Panel Fast 4 Months E11.9 - Type 2 diabetes mellitus without complications Medications: Discontinued meloxicam Discontinued Reason: Patient Completed Course 15 mg PO BEDTIME PRN 30 tabs 3RF pain
== END 2024-11-03 15:29 | disposition home or self-care (01) ==
LOC: HO.HMCH 14:27
PROVIDERS: PCP Internal Medicine; Visit Provider Internal Medicine
DX: F32.0 Major depressive disorder, single episode, mild (principal); I10 Essential (primary) hypertension; E78.5 Hyperlipidemia, unspecified; E11.9 Type 2 diabetes mellitus without complications

== ENCOUNTER → 2024-11-03 14:26 | Outpatient (BNVA) | payer OTHER, SELFPAY | PROVIDERS: PCP Internal Medicine; Visit Provider Internal Medicine | DX: E11.22 Type 2 diabetes mellitus with diabetic chronic kidney disease (principal); I12.9 Hypertensive chronic kidney disease with stage 1 through stage 4 chronic kidney disease, or unspecified chronic kidney disease; F32.0 Major depressive disorder, single episode, mild; E78.5 Hyperlipidemia, unspecified; N18.9 Chronic kidney disease, unspecified; N40.0 Benign prostatic hyperplasia without lower urinary tract symptoms; R80.9 Proteinuria, unspecified; D63.1 Anemia in chronic kidney disease | CPT/HCPCS: 83036; 96127; 99212 ==

== ENCOUNTER 2024-12-26 08:41 | Outpatient (REF) | payer OTHER, SELFPAY ==
--- OUTSIDE RECORDS SUMMARY | 2024-12-26 09:09 | XMS_ITS | Clinical Summary ---
Author Organization [facility] Address [address] [place] [address] Care Team Providers Care Machine Maintenance Supervisor Name Role Phone Unavailable Primary Care Provider [...] Problems Problem Noted Date Diagnosed Date Diabetes ([facility]) 06/06/2022 Depression 06/06/2022 Social History Tobacco Use [...] Examination 06/09/2023 06/06/2022 Hypertension Screening (#1) 07/03/2023 Alcohol and Drug Screen 03/30/2024 [id number] ( - season) 2024 Imm-Influenza (#1) 2024 Dental FMX/Pano 06/09/2027 06/06/2022 Procedures Procedure Name Priority Date/Time Associated Diagnosis Comments Full INTRAORAL - COMP SERIES OF RADIOGRAPHIC IMAGES Routine 06/06/2022 3:40 PM EST Gingivitis, chronic, plaque induced Full COMP ORAL EVALUATION - NEW/ESTABLISHED PATIENT Routine 06/06/2022 3:40 PM EST Gingivitis, chronic, plaque induced from Last 3 Months or Most Recently Relevant to Health Maintenance Insurance [place] MEDICAID DENTAL [facility] - DENTAL Member Subscriber Plan / Payer (Ef fective 2022-Present) Name:Duglas Melo Relation to Subscriber:Self Name:Duglas Melo Payer ID:[id number] Group ID:Not on file Type:Medicare Address: [facility] [address] [id number]
--- OUTSIDE RECORDS SUMMARY | 2024-12-26 09:09 | XMS_ITS | Clinical Summary ---
Author Organization [facility] Address [address] [place] [address] Care Team Providers Care Driving Teacher Name Role Phone Unavailable Primary Care Provider [...] 04/24/2023 Social Influencers of Health Screening 04/24/2023 Depression Screening 03/30/2024 COVID-19 Vaccine ( - 2023-2 5 season) 2024 Influenza Vaccine (#1) 2024 HIB Vaccines Aged [...]
[2024-12-26 10:57] LABS: Prostate Specific Antigen 0.42 ng/mL (<0.05-4.0)
== END 2024-12-26 08:42 | disposition home or self-care (01) ==
LOC: HO.LAB 08:41
PROVIDERS: PCP Internal Medicine; Visit Provider Nurse Practitioner Family
DX: Z12.5 Encounter for screening for malignant neoplasm of prostate (principal); N40.0 Benign prostatic hyperplasia without lower urinary tract symptoms; R31.9 Hematuria, unspecified
CPT/HCPCS: 36415; 84153; 88112

== ENCOUNTER 2025-01-26 14:31 | Outpatient (AMB) | payer OTHER, SELFPAY ==
--- NOTE | 2025-01-26 14:42 | A.OFFVIS_ITS ---
Intake Visit Reasons: 6m psa/us Intake Note: Patient is present for 6M/PSA/US Urology Medication:TERAZOSIN Antibiotic Allergy:NONE Blood Thinner:NONE Student Success Counselor Required: No Student Success Counselor Services: Student Success Counselor Present Student Success Counselor Name: Trice [id number] Allergies No Known Allergies Allergy (Verified 01/26/25 15:47) Medication List - Last Reconciled 01/26/25 by NEW Samuels- atorvastatin 20 mg PO DAILY 90 days candesartan 32 mg PO DAILY 90 days cholecalciferol (vitamin D3) 50 mcg PO DAILY 90 days clotrimazole-betamethasone 1-0.05 % 1 appl topical BID 4 weeks empagliflozin (Jardiance) 10 mg PO DAILY 90 days metformin ER 500 mg PO BID 90 days nifedipine ER 30 mg PO DAILY 90 days sertraline 25 mg PO DAILY 90 days terazosin 5 mg PO BEDTIME timolol maleate 0.5% 1 drp ophthalmic (eye) BID HPI Comments Details: Duglas is a 79-year-old Korean-speaking male patient of Dr. Zheng. He has a past medical history of diabetes, hypertension, hyperlipidemia, glaucoma, depression, anxiety and constipation. He presents to the office today for follow-up. Of note, patient was seen approximately 5 months ago as a new patient for ongoing lower urinary tract symptoms that he had been experiencing at which time a PSA and retroperitoneal ultrasound were ordered for further assessment evaluation. The patient was also noted to have an increased postvoid residual of 159 mL his Flomax was switched to terazosin to assist with bladder emptying. In discussion with the patient today he reports compliance with terazosin as prescribed and does feel this has been helpful. He reports his main concern is the redness and irritation noted to the head of his penis. In assessment of the patient today the penis is uncircumcised. Upon retraction of penile foreskin the head of the penis does appear irritated. We did discussed balanitis. Patient with a previous history of positive urine cultures. Urine cultures are as follows: 11/20 Staphylococcus epidermis, 02/20 Staphylococcus epidermis/strep agalactie, 06/21 strep agalactie Retroperitoneal ultrasound 11/21 bilateral kidneys are normal in size and echotexture. Multiple right renal cysts largest measuring 8 mm. There are 2 nonobstructing right renal calculi measuring approximately 6 mm. Mild left hydronephrosis and ureteral dilatation. No right hydronephrosis. Urinary bladder is unremarkable. Question of prostate mass measuring 17 mm. However PSA 12/22 0.4. We did discuss nephrolithiasis, hydronephrosis, with question of prostate mass noted on imaging per radiology report. TABITHA was offered however deferred. He reports he currently has a hemorrhoid. 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 We did discuss further treatment options of these asformentioned urological conditions and risks and benefits of these treatment options. In office urinalysis results reviewed with the patient today. PVR 58 mL. We did discuss a decrease in postvoid residual since his last office visit here. All questions were answered. He denies incontinence, hematuria, dysuria, foul smelling urine, flank pain, fever, and or chills. [facility] Surgical History H/O colonoscopy Cataract H/O lithotripsy History of tonsillectomy History of knee surgery Family History Father Cancer Mother Alzheimer disease Family/Other Mental health disorder Social History Housing: Apartment Alcohol intake: current Alcohol intake frequency: holidays/special occasions only Alcohol type: wine Patient Tobacco Use Status: Never used Tobacco e-Cigarette/Vaping Use: Never Used Second Hand Smoke Exposure: No service: No Current occupational status: unemployed Cognitive needs: No Hearing needs: No Vision needs: No Review of Systems Const All systems reviewed & are unremarkable except as noted in HPI and below Physical Exam Const General: cooperative, healthy appearing, comfortable, no acute distress, well developed, alert and awake Orientation/consciousness: patient oriented x3 Limitations: language barrier HEENT Head: Yes normal to inspection, Yes normocephalic and Yes atraumatic Ears: hearing grossly normal bilaterally Eyes General: appearance normal, both eyes and all related structures Neck Neck: Yes normal visual inspection and Yes trachea midline Chest Chest palpation & inspection: normal inspection of the chest Resp Effort & Inspection: normal respiratory effort and able to speak in complete sentences Cardio Rate: regular rate GI Inspection: Yes normal to inspection General: Yes no CVA tenderness Back/Spine/Pelvis Back: no CVA tenderness Skin General skin exam: no rashes or lesions noted Neuro General: patient oriented x3 Extrem General: Yes normal to inspection Psych Appearance: grossly normal and well kempt Mental Status: mental status grossly normal Speech and movement: Normal speech and movement present and Clear speech present Affect: normal affect Attitude: cooperative Thought process: Normal thought process present Thought content: Normal thought content present Insight: Fair insight present (Psych) Judgement: Fair judgement present (Psych) Results AMB Urinalysis, Automated UA Leukoctes 0 Yinka/uL Last Edit by СВЕТЛАНА Friend on 01/26/25 14:59 UA Nitrite Negative Last Edit by Chris Ogden CCM on 01/26/25 14:59 UA Urobilinogen 0.2 mg/dL Last Edit by Chris Ogden CCM on 01/26/25 14:5 9 UA Protein 15 mg/dL Last Edit by Chris Ogden CCM on 01/26/25 14:59 UA pH 6.0 Last Edit by Chris Ogden [facility] on 01/26/25 14:59 UA Blood 0 Adan/uL Last Edit by Chris Ogden CCM on 01/26/25 14:59 UA Specific [place] 1.015 Last Edit by Chris Ogden CCM on 01/26/25 14: 59 UA Ketone Negative Last Edit by Chris Ogden CCM on 01/26/25 14:59 UA Bilirubin 0 mg/dL Last Edit by Chris Ogden [facility] on 01/26/25 14:59 UA Glucose 1000 mg/dL Last Edit by Chris Ogden [facility] on 01/26/25 14:59 Results Reviewed Results Reviewed: Laboratory Last Values Urine pH (Auto) 6.0 01/26/25 14:49 Specific [place] (Auto) 1.015 01/26/25 14:49 Urine Protein (Auto) 15 mg/dL 01/26/25 14:49 Glucose (UA)(Auto) 1000 mg/dL 01/26/25 14:49 Urine Ketones (Auto) Negative 01/26/25 14:49 Urine Blood (Auto) 0 Adan/uL 01/26/25 14:49 Urine Nitrite (Auto) Negative 01/26/25 14:49 Urine Bilirubin (Auto) 0 mg/dL 01/26/25 14:49 Urine Urobilinogen (Auto) 0.2 mg/dL 01/26/25 14:49 Leukocyte Esterase (Auto) 0 Yinka/uL 01/26/25 14:49 Date of Service: 10/31/24 Procedure(s): US retroperitoneal comp Findings: Right kidney normal size and echotexture, 10.9 cm length. Multiple right renal cysts, largest of which is in the interpolar kidney measuring 8 mm. There are 2 right renal calculi, largest of which is in the superior pole measuring 6 mm. Left kidney normal size and echotexture, 11.1 cm length. Interpolar cyst measuring 8 mm. Mild left hydronephrosis and ureteral dilatation. No right hydronephrosis. Normal color Doppler. Urinary bladder is unremarkable. Prevoid volume 371 next 127 mL. Postvoid volume mL. Bilateral ureteral jets are visualized. Possible prostate mass measuring 17 mm. IMPRESSION: 1. Mild left hydronephrosis and ureteral dilatation. 2. Nonobstructing right renal calculi. 3. Possible prostate mass. 4. Moderate postvoid residual in the urinary bladder. Assessment & Plan Assessment & Plan (1) BPH (benign prostatic hyperplasia): Code(s): N40.0 - Benign prostatic hyperplasia without lower urinary tract symptoms Category: Medical (2) Incomplete bladder emptying: Code(s): R33.9 - Retention of urine, unspecified Category: Medical (3) Renal calculi: Code(s): N20.0 - Calculus of kidney Category: Medical Plan In office urinalysis results reviewed with the patient today; as noted above. PVR 58 mL. Continue terazosin. Start clobetasol betamethasone as discussed and prescribed. We did discussed renal calculi, incomplete bladder emptying, renal cysts, and question of prostate mass noted on imaging; we did discuss further treatment options and risks and benefits of these treatment options. All questions were answered. Recent retroperitoneal ultrasound results reviewed with the patient today. Recent PSA results reviewed with the patient today. TABITHA offered however deferred. Will continue with surveillance monitoring at this time. We did discussed proper care Will obtain PSA in 4 months Will obtain retroperitoneal ultrasound in 4 months. Follow-up in 4 months with PVR, imaging, and lab; or sooner with any issues, concerns, and or questions Orders: Orders AMB Urinalysis Automated Today Z13.9 - Encounter for screening, unspecified US retroperitoneal comp 4 Months N20.0 - Calculus of kidney, N40.0 - Benign prostatic hyperplasia without lower urinary tract symptoms, R33.9 - Retention of urine, unspecified Prostate Specific Antigen 4 Months N42.89 - Other specified disorders of prostate Medications: New clotrimazole-betamethasone 1-0.05 % Apply thin coat 2 times per day 1 appl topical BID 45 grams 0RF 4 weeks N48.1 - Balanitis Patient Instructions: The patient had an opportunity to ask questions regarding the treatment plan. All questions were answered. Physical exam, labs, and imaging were discussed and reviewed in detail. As well as risks, benefits, and discussion of treatment choices. No major barriers to understanding were identified. The patient expressed understanding and agreement with the above treatment plan. The patient was made aware they should contact our office by phone for worsening of their current condition, the appearance of new symptoms, or with any questions or concerns. Compliance is encouraged with any medications and follow up testing that is ordered. It is a privilege to be allowed the opportunity to participate in? your urological care.? Again, if you have any questions or concerns If you have any questions or concerns please do not hesitate to contact me. The office is [phone]. This note is constructed using voice recognition software. While every effort has been made to ensure accuracy technician inventory specialist errors may have been included. Yours sincerely, UVALDO Samuels Coding Level of Care Code Est Pt Level 4 (73567) Complex EM visit Add On G2211 Diagnoses BPH (benign prostatic hyperplasia) N40.0 Incomplete bladder emptying R33.9 Renal calculi N20.0
--- OUTSIDE RECORDS SUMMARY | 2025-01-26 17:37 | XMS_ITS | Clinical Summary ---
Author Organization [facility] ity Address [address] [place] [address] Care Team Providers Care Foot Doctor Name Role Phone Unavailable Primary Care Provider [...]
== END 2025-01-26 16:13 | disposition home or self-care (01) ==
LOC: HO.HUSH 14:31
PROVIDERS: PCP Internal Medicine; Visit Provider Nurse Practitioner Family
DX: N40.0 Benign prostatic hyperplasia without lower urinary tract symptoms (principal); R33.9 Retention of urine, unspecified; N20.0 Calculus of kidney; Z13.9 Encounter for screening, unspecified
CPT/HCPCS: 99214; G2211

== ENCOUNTER → 2025-01-26 14:31 | Outpatient (BNVA) | payer OTHER, SELFPAY | PROVIDERS: PCP Internal Medicine; Visit Provider Nurse Practitioner Family | DX: N20.0 Calculus of kidney (principal); N48.89 Other specified disorders of penis; N40.0 Benign prostatic hyperplasia without lower urinary tract symptoms; R33.9 Retention of urine, unspecified; Z13.9 Encounter for screening, unspecified; Z87.440 Personal history of urinary (tract) infections | CPT/HCPCS: 51798; 81003; 99212 ==

== ENCOUNTER 2025-02-28 14:45 | Outpatient (AMB) | payer OTHER, SELFPAY ==
[2025-02-28 14:48] VITALS: BP 106/56; PULSE 82; RESP 18; O2SAT 97; BMI 26.8
--- NOTE | 2025-02-28 14:48 | A.OFFPC_ITS ---
Vital Signs 02/28/25 14:48 Height 5 ft 10.5 in Weight 189 lb 8 oz BMI 26.8 BP 106/56 L Blood Pressure Location Lt brachial Position Sitting Respiration 18 Pulse 82 Pulse Source Pulse Oximeter Temp Source Temporal Artery Scan Pulse Oximetry (%) 97 Oxygen Delivery Method Room Air Intake Visit Reasons: Annual Exam Plant Packer Required: No Accompanied by: Self / Same As Patient Allergies No Known Allergies Allergy (Verified 02/28/25 15:02) Medication List - Last Reconciled 02/28/25 by Ivonne Lee MD atorvastatin 20 mg PO DAILY 90 days candesartan 32 mg PO DAILY 90 days cholecalciferol (vitamin D3) 50 mcg PO DAILY 90 days clotrimazole-betamethasone 1-0.05 % 1 appl topical BID 4 weeks empagliflozin (Jardiance) 10 mg PO DAILY 90 days metformin ER 500 mg PO BID 90 days nifedipine ER 30 mg PO DAILY 90 days sertraline 25 mg PO DAILY 90 days terazosin 5 mg PO BEDTIME timolol maleate 0.5% 1 drp ophthalmic (eye) BID Tobacco use date assessed: 02/28/25 Fall risk assessment: No Falls in past year Last assessed Fall Risk: 02/28/25 Dental Screening Dental Screen Date: 02/28/25 Did you have a dental visit in the last 12 months?: Yes Did you have a dental problem in the last 6 months where you did not have access to dental care?: No Was dental information given to patient?: Patient has dentist HPI HPI Comments History of Present Illness Details The patient is a 79 year old individual presenting for an annual physical examination. The patient has a history of colon cancer diagnosed approximately 18-20 years ago, in the patient's 50s, which required the removal of 30 cm of the colon. A colonoscopy performed last year revealed multiple polyps that were subsequently removed. The patient has a significant family history of cancer, with the patient's father having from stomach cancer at age 53. Due to this family history, the patient's three sons, ages 53, 51, and 45, are undergoing colon cancer screening. For management of type 2 diabetes, the patient is prescribed Jardiance 10 mg and metformin. The patient reports having stopped taking metformin for about a month to six weeks and has not noticed any resulting symptoms. The last A1c result in October was 6.1%. The patient's current medications for chronic conditions include atorvastatin 20 mg for hyperlipidemia, candesartan for hypertension, nifedipine 30 mg, Jardiance 10 mg, vitamin D, sertraline 25 mg, terazosin, and eye drops. The patient has no known drug allergies. Past surgical history includes knee surgery, cataract surgery, lithotripsy, and tonsillectomy. The patient reports having previously suffered from heartburn, which has since resolved. [facility] Surgical History H/O colonoscopy Cataract H/O lithotripsy History of tonsillectomy History of knee surgery Family History Father Cancer Mother Alzheimer disease Family/Other Mental health disorder Social History Housing: Apartment Alcohol intake: current Alcohol intake frequency: holidays/special occasions only Alcohol type: wine Patient Tobacco Use Status: Never used Tobacco e-Cigarette/Vaping Use: Never Used Second Hand Smoke Exposure: No service: No Current occupational status: unemployed Cognitive needs: No Hearing needs: No Vision needs: No Questionnaire Thrive Questionnaire Date Thrive assessed: 11/02/24 I am a: Patient What is your living situation today?: I choose not to answer this question Within the past 12 months, did the food you bought not last and you didn't have the money to get more?: I choose not to answer this question Within the past 12 months, did you worry whether your food would run out before you got money to buy more?: Sometimes True Do you have trouble paying for medicines?: No Do you have trouble getting transportation to medical appointments?: No Do you have trouble paying your heating and electricity bill?: No Do you have trouble taking care of your child, family member or friend?: No Do you have trouble with day-to-day activities such as bathing, preparing meals, shopping, managing finances, etc.?: No Are you currently unemployed and looking for a job?: I choose not to answer this question Are you interested in more education?: Yes Please select the resources that you would like help with: None Currently or been in a relationship where the following occur: I choose not to answer THRIVE Score: 1 MARLIN-7 AMB Questionnaire MARLIN-7 Date MARLIN - 7 assessed: 06/22/24 Source: Developed by Drs. Trip Mcgee, Talia Valenzuela, Ham Dove and colleagues, with an educational laurie from [employer]. Review of Systems Const All systems reviewed & are unremarkable except as noted in HPI and below Card Denies chest pain at rest, Denies chest pain with activity, Denies edema, Denies irregular heart rhythm, Denies claudication, Denies dyspnea, Denies dyspnea on exertion, Denies orthopnea, Denies paroxysmal nocturnal dyspnea and Denies slow heart rate Resp Denies cough, Denies dyspnea and Denies dyspnea on exertion Physical exam (Primary Care) Vital Signs: Last Vital Signs Pulse 82 02/28/25 14:48 Resp 18 02/28/25 14:48 BP 106/56 L 02/28/25 14:48 Pulse Ox 97 02/28/25 14:48 Oxygen Delivery Method Room Air 02/28/25 14:48 BMI result Body Mass Index 26.8 Tobacco/Smoking Status: Tobacco use Status Tobacco use date assessed 02/28/25 02/28/25 14:54 Patient Tobacco Use Status Never used Tobacco 02/28/25 14:54 e-Cigarette/Vaping Use Never Used 02/28/25 14:54 Thrive Assessment: Date of Thrive Assessment Date Thrive assessed 11/02/24 02/28/25 14:54 Currently or been in a relationship where the following occur: I choose not to answer HENOR Head: Yes normal to inspection, Yes normocephalic and Yes atraumatic Ears: external ears normal Eyes General: appearance normal, both eyes and all related structures Eyelids: Yes eyelids normal Conjunctivae: conjunctivae normal Neck Neck: Yes normal visual inspection and Yes supple Resp Effort & Inspection: normal respiratory effort Auscultation: clear to auscultation bilaterally Cardio Jugular venous distension: no JVD Rate: regular rate Rhythm: regular rhythm Heart sounds: S1 normal heart sound present and S2 normal heart sound present GI Inspection: Yes normal to inspection Palpation (GI): Soft to palpation and nontender Auscultation: normal bowel sounds Skin General skin exam: no rashes or lesions noted Neuro General: no focal motor deficits Extrem General: Yes full ROM Psych Appearance: grossly normal Coding Level of Care Code Est Pt Prev Care >65y(44972) Diagnoses Physical exam Z00.00 Type 2 diabetes mellitus without complication, without long-term current use of insulin E11.9 Diabetes mellitus type: type 2 Diabetes mellitus prison insulin use: without prison use Diabetes mellitus complication status: without complication Time Spent (min) 30 Assessment & Plan Assessment & Plan (1) Physical exam: Code(s): Z00.00 - Encounter for general adult medical examination without abnormal findings Category: Medical (2) Diabetes mellitus: Code(s): E11.9 - Type 2 diabetes mellitus without complications Category: Medical Qualifiers: Diabetes mellitus type: type 2 Diabetes mellitus prison insulin use: without prison use Diabetes mellitus complication status: without complication Qualified Code(s): E11.9 - Type 2 diabetes mellitus without complications Plan Plan 1. Type 2 Diabetes Mellitus The patient has been non-adherent with metformin for the past month to six weeks. Given the patient's last A1c was 6.1% in October, an A1c will be checked today to determine if metformin is still necessary. Will follow up with the patient regarding the results. 2. Heart Murmur, New A new heart murmur was detected on physical exam. The possibility of age-related valvular calcification was discussed. A cardiac ultrasound will be ordered to further evaluate the murmur. 3. History Of Colon Cancer The patient has a personal history of colon cancer and a strong family history of gastrointestinal cancer. The patient is followed by [facility] and will continue surveillance colonoscopies as recommended by the specialist, likely on a 2-3 year interval, though the exact timing is to be confirmed. 4. Transportation Insecurity The patient expressed concerns about losing transportation benefits from the insurance plan, which are needed for medical appointments. Will assist by providing necessary documentation to the medical plan if required to justify the need for transportation. Orders: Orders AMB Hemoglobin A1c Today E11.9 - Type 2 diabetes mellitus without complications Lipid Panel 4 Months E78.5 - Hyperlipidemia, unspecified Vitamin D 25-OH Total 4 Months E55.9 - Vitamin D deficiency, unspecified Comprehensive [place]. 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
--- OUTSIDE RECORDS SUMMARY | 2025-02-28 16:38 | XMS_ITS | Clinical Summary ---
Author Organization [facility] ity Address [address] [place] [address] Care Team Providers Care Ultrasonic Tester Name Role Phone Unavailable Primary Care Provider [...] Depression Screening 03/30/2024 COVID-19 Vaccine ( - 2024-2 6 season) 2024 Influenza Vaccine (#1) 2024 HIB [...]
== END 2025-02-28 15:26 | disposition home or self-care (01) ==
LOC: HO.HMCH 14:46
PROVIDERS: PCP Internal Medicine; Visit Provider Internal Medicine
DX: Z00.00 Encounter for general adult medical examination without abnormal findings (principal); E11.9 Type 2 diabetes mellitus without complications

== ENCOUNTER → 2025-02-28 14:45 | Outpatient (BNVA) | payer OTHER, SELFPAY | PROVIDERS: PCP Internal Medicine; Visit Provider Internal Medicine | DX: Z00.00 Encounter for general adult medical examination without abnormal findings (principal); E11.9 Type 2 diabetes mellitus without complications; E78.5 Hyperlipidemia, unspecified; E55.9 Vitamin D deficiency, unspecified; R80.9 Proteinuria, unspecified; F32.0 Major depressive disorder, single episode, mild; Z79.84 Long term (current) use of oral hypoglycemic drugs; Z79.899 Other long term (current) drug therapy | CPT/HCPCS: 83036; 99397 ==

== ENCOUNTER 2025-03-13 09:27 | Outpatient (REF) | payer OTHER, SELFPAY ==
[2025-03-13 13:51] LABS: Anion Gap 12 (12-20); Blood Urea Nitrogen 14 mg/dL (9-16); Calcium 8.9 mg/dL (8.4-10.2); Carbon Dioxide 25 mmol/L (22-29); Chloride 108 mmol/L (96-108); Estimated Glomerular Filt Rate > 60; Potassium 3.8 mmol/L (3.3-5.1); Sodium 141 mmol/L (135-145)
[2025-03-13 14:18] LABS: Protein/Creatinine Ratio, Ur 0.14 (<0.2); Total Protein Urine Random 10 mg/dL (<12)
== END 2025-03-13 09:28 | disposition home or self-care (01) ==
LOC: HO.HKASLDS 09:27
PROVIDERS: PCP Internal Medicine; Visit Provider Internal Medicine Nephrology
DX: I10 Essential (primary) hypertension (principal); N20.0 Calculus of kidney; R80.9 Proteinuria, unspecified
CPT/HCPCS: 36415; 80051; 82310; 82565; 82570; 84156; 84520

== ENCOUNTER 2025-03-14 10:55 | Outpatient (AMB) | payer OTHER, SELFPAY ==
--- NOTE | 2025-03-14 11:12 | HO.NEPHOV_ITS ---
Vital Signs 03/14/25 11:15 Height 5 ft 10.5 in Weight 190 lb 6 oz BMI 26.9 BP 130/80 Blood Pressure Location Lt brachial Position Sitting Pulse 59 Pulse Source Pulse Oximeter Pulse Oximetry (%) 96 Oxygen Delivery Method Room Air Intake Visit Reasons: 6m follow up-Conf Allergies No Known Allergies Allergy (Verified 03/14/25 11:14) HPI Comments Details: I had the pleasure of seeing Duglas in follow up for proteinuria. He is from [facility] and has immigrated to [facility] couple years ago. He has a diabetic and has hypertension. His hemoglobin A1c has been under 7 and his blood pressure has been at goal. He has history of nephrolithiasis. He reports recent urinary tract concerns with symptoms of hematuria. He is due to see a urologist. He he denies coronary artery disease, carotid stenosis, congestive heart failure, CVA, CHF, PAD or history of GRISELDA. He does not take any excessive nonsteroidal anti-inflammatories and maintain good hydration. He denies any chest pain, shortness of breath, paroxysmal nocturnal dyspnea, orthopnea, pedal edema, epistaxis, joint pains, photosensitivity or skin rashes. He feels well [facility] Surgical History H/O colonoscopy Cataract H/O lithotripsy History of tonsillectomy History of knee surgery Family History Father Cancer Mother Alzheimer disease Family/Other Mental health disorder Social History Housing: Apartment Alcohol intake: current Alcohol intake frequency: holidays/special occasions only Alcohol type: wine Patient Tobacco Use Status: Never used Tobacco e-Cigarette/Vaping Use: Never Used Second Hand Smoke Exposure: No service: No Current occupational status: unemployed Cognitive needs: No Hearing needs: No Vision needs: No Review of Systems Const All systems reviewed & are unremarkable except as noted in HPI and below Physical Exam Const General: comfortable and no acute distress Orientation/consciousness: patient oriented x3 HEENT Head: Yes normocephalic Mouth: Normal oral and palatal mucosa present Eyes EOM: EOMs intact bilaterally Neck Neck: Yes supple Resp Auscultation: clear to auscultation bilaterally Cardio Jugular venous distension: no JVD Rate: regular rate GI Palpation (GI): Soft to palpation Auscultation: normal bowel sounds General: Yes no CVA tenderness Back/Spine/Pelvis Back: no CVA tenderness Skin General skin exam: no rashes or lesions noted Neuro General: patient oriented x3 and moves all extremities Extrem General: Yes no pedal edema Results Reviewed Nephrology Results: Sodium, (135-145) 141 mmol/L 03/13/25 Potassium, (3.3-5.1) 3.8 mmol/L 03/13/25 Chloride, (96-108) 108 mmol/L 03/13/25 Carbon Dioxide, (22-29) 25 mmol/L 03/13/25 BUN, (9-16) 14 mg/dL 03/13/25 Creatinine, (0.5-1.4) 0.81 mg/dL 03/13/25 Calcium, (8.4-10.2) 8.9 mg/dL 03/13/25 Urine Creatinine 69.22 mg/dL 03/13/25 Protein/Creatinin Ratio, (<0.2) 0.14 03/13/25 Renal US 08/02/24 Assessment & Plan Assessment & Plan (1) Essential hypertension: Code(s): I10 - Essential (primary) hypertension Category: Medical (2) Renal cyst: Code(s): N28.1 - Cyst of kidney, acquired Category: Medical (3) Renal calculi: Code(s): N20.0 - Calculus of kidney Category: Medical Plan 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 His renal functions are normal. He is on ARB as well as SGLT2 inhibitor. His blood pressure is at goal. He does not take any excessive nonsteroidal anti-inflammatories. His blood work and urine studies were reviewed . USS in the past showed subcentimeter cysts bilaterally with tiny nonobstructing bilateral renal calculi. No hydronephrosis.He should maintain good hydration. I would not make any medication changes today. He has seen urology for hematuria. All these have been explained in detail. Answered all questions. Follow-up appointment given Orders: Orders Protein Creatinine Ratio, Ur 6 Months I10 - Essential (primary) hypertension, N20.0 - Calculus of kidney, N28.1 - Cyst of kidney, acquired Creatinine 6 Months I10 - Essential (primary) hypertension, N20.0 - Calculus of kidney, N28.1 - Cyst of kidney, acquired Electrolytes 6 Months I10 - Essential (primary) hypertension, N20.0 - Calculus of kidney, N28.1 - Cyst of kidney, acquired Blood Urea Nitrogen 6 Months I10 - Essential (primary) hypertension, N20.0 - Calculus of kidney, N28.1 - Cyst of kidney, acquired Coding Level of Care Code Est Pt Level 4 (32555) Diagnoses Essential hypertension I10 Renal cyst N28.1 Renal calculi N20.0
--- NOTE | 2025-03-14 11:13 | HO.NEPHOV ---
Vital Signs 03/14/25 11:15 Height 5 ft 10.5 in Weight 190 lb 6 oz BMI 26.9 BP 130/80 Blood Pressure Location Lt brachial Position Sitting Pulse 59 Pulse Source Pulse Oximeter Pulse Oximetry (%) 96 Oxygen Delivery Method Room Air Intake Visit Reasons: 6m follow up-Conf [employer] Artillery Cannoneer Required: Yes Field Artillery Cannoneer Language: Gate Shear Operator Services: Field Artillery Cannoneer Present Field Artillery Cannoneer Name: Ivonne [id number] Information Interpreted: clinical only Accompanied by: Son Allergies No Known Allergies Allergy (Verified 03/14/25 11:14) PFSH Surgical History H/O colonoscopy Cataract H/O lithotripsy History of tonsillectomy History of knee surgery Family History Father Cancer Mother Alzheimer disease Family/Other Mental health disorder Social History Housing: Apartment Alcohol intake: current Alcohol intake frequency: holidays/special occasions only Alcohol type: wine Patient Tobacco Use Status: Never used Tobacco e-Cigarette/Vaping Use: Never Used Second Hand Smoke Exposure: No service: No Current occupational status: unemployed Cognitive needs: No Hearing needs: No Vision needs: No Results Reviewed Nephrology Results: Sodium, (135-145) 141 mmol/L 03/13/25 Potassium, (3.3-5.1) 3.8 mmol/L 03/13/25 Chloride, (96-108) 108 mmol/L 03/13/25 Carbon Dioxide, (22-29) 25 mmol/L 03/13/25 BUN, (9-16) 14 mg/dL 03/13/25 Creatinine, (0.5-1.4) 0.81 mg/dL 03/13/25 Calcium, (8.4-10.2) 8.9 mg/dL 03/13/25 Urine Creatinine 69.22 mg/dL 03/13/25 Protein/Creatinin Ratio, (<0.2) 0.14 03/13/25 Renal US 08/02/24 Coding
[2025-03-14 11:15] VITALS: BP 130/80; PULSE 59; O2SAT 96; BMI 26.9
--- OUTSIDE RECORDS SUMMARY | 2025-03-14 14:14 | XMS_ITS | Clinical Summary ---
Author Organization [facility] ity Address [address] [place] [address] Care Team Providers Care Feather Baler Name Role Phone Unavailable Primary Care Provider [...]
== END 2025-03-14 11:26 | disposition home or self-care (01) ==
LOC: HO.HKAS 10:55
PROVIDERS: PCP Internal Medicine; Visit Provider Internal Medicine Nephrology
DX: I10 Essential (primary) hypertension (principal); N28.1 Cyst of kidney, acquired; N20.0 Calculus of kidney
CPT/HCPCS: 99214

== ENCOUNTER → 2025-03-14 10:55 | Outpatient (BNVA) | payer OTHER, SELFPAY | PROVIDERS: PCP Internal Medicine; Visit Provider Internal Medicine Nephrology | DX: N20.0 Calculus of kidney (principal); N28.1 Cyst of kidney, acquired; I10 Essential (primary) hypertension; E11.9 Type 2 diabetes mellitus without complications; Z79.84 Long term (current) use of oral hypoglycemic drugs | CPT/HCPCS: 99212 ==

== ENCOUNTER 2025-03-22 14:50 | Emergency (ER) | payer OTHER, SELFPAY ==
[2025-03-22 15:17] VITALS: BP 125/65; PULSE 99; RESP 16; TEMP 36.9; O2SAT 96; BMI 29.2
--- NOTE | 2025-03-22 15:17 | ED.GENADULT ---
HPI - General Adult General Chief complaint: Dental/Oral Stated complaint: facial pain Time Seen by Provider: 03/22/25 17:16 History of Present Illness ED Provider: dakota HPI narrative: 79-year-old pleasant man ambulatory comes in on his own for about 24-48 hours of left facial swelling and dental pain left maxillary region. No difficulty swallowing or breathing. He reports chronic sinusitis symptoms but no drainage now. No pain with eye movement or double vision. Left cheek is what is mostly involved some erythema. Denies ear pain or tinnitus no neck pain he has had dental work in the past has a crown somewhere but he is not sure where it was put no oral drainage or gum swelling top tooth as noted on exam is tender what she noted Related Data Home Medications ?Medication ?Instructions ?Recorded ?Confirmed timolol maleate 0.5 % eye drops 1 drp ophthalmic (eye) BID 10/08/22 02/28/25 Previous Rx's ?Medication ?Instructions ?Recorded empagliflozin 10 mg tablet 10 mg PO DAILY 90 days #90 tabs 11/18/24 (Jardiance) terazosin 5 mg capsule 5 mg PO BEDTIME #90 caps 11/30/24 atorvastatin 20 mg tablet 20 mg PO DAILY 90 days #90 tabs 12/29/24 candesartan 32 mg tablet 32 mg PO DAILY 90 days #90 tabs 01/24/25 clotrimazole-betamethasone 1 1 appl topical BID 4 weeks #45 01/26/25 %-0.05 % topical cream grams metformin 500 mg tablet,extended 500 mg PO DAILY 90 days #90 tabs 02/28/25 release 24 hr nifedipine 30 mg tablet,extended 30 mg PO DAILY 90 days #90 tabs 02/28/25 release sertraline 25 mg tablet 25 mg PO DAILY 90 days #90 tabs 02/28/25 cholecalciferol (vitamin D3) 50 50 mcg PO DAILY 90 days #90 caps 03/05/25 mcg (2,000 unit) capsule amoxicillin 875 mg-potassium 1 tab PO BID 7 days #14 tabs 03/22/25 clavulanate 125 mg tablet Allergies Allergy/AdvReac Type Severity Reaction Status Date / Time No Known Allergies Allergy Verified 03/22/25 15:18 PMFSH Past Medical History Surgical History H/O colonoscopy Cataract H/O lithotripsy History of tonsillectomy History of knee surgery Family History Family History Father Cancer Mother Alzheimer disease Family/Other Mental health disorder Social History Social History Housing: Apartment Alcohol intake: current Alcohol intake frequency: holidays/special occasions only Alcohol type: wine Patient Tobacco Use Status: Never used Tobacco e-Cigarette/Vaping Use: Never Used Second Hand Smoke Exposure: No Advance Directives: No Advance Directives Information Provided: No service: No Current occupational status: unemployed Cognitive needs: No Hearing needs: No Vision needs: No Physical Exam ED Exam Exam: Vital Signs: Vital Signs - 24 hr 03/22/25 15:17 Temperature 98.4 F Pulse Rate 99 Respiratory Rate 16 Blood Pressure 125/65 Pulse Oximetry 96 Oxygen Delivery Method Room Air BMI result Body Mass Index 29.2 HENMT Teeth image:  1. Slightly tender no drainage Course Course Course Narrative: This is a rapid medical exam performed by Ioana Aburto NP: Additional HPI, ROS, PE not included below will be deferred to primary provider. Patient is a 79y/o Trinidadian speaking male with pmhx DM, HTN, HLD, BPH presenting to the ED with complaint of left sided facial swelling for the past 2 days since Thursday night. Pain to tooth of left upper jaw. Denies fevers/chills. Plan: labs Medications Administered Discontinued Medications Generic Name Dose Route Start Last Admin Trade Name Freq PRN Reason Stop Dose Admin Amoxicillin/Clavulanate Potassium 875 mg 03/22/25 17:39 03/22/25 17:55 Amoxicillin/Potassium Clav 875 Mg Tablet PO 03/22/25 17:40 875 mg ONCE ONE Administration Medical Decision Making Medical Decision Making MDM Narrative: 79 male with diabetes hypertension with less than 48 hours of facial swelling. No clinical signs to suggest orbital involvement. Mild prominence of the left side of the face. No neurologic symptoms. Dentition slightly tender with no signs of necrotizing or severe or drainable collection in the mouth or around the teeth. Plan for Augmentin. Strict return precautions. Dental follow up as soon as possible he understands this Lab Data 03/22/25 15:29 03/22/25 15:29 Labs: Lab Results 03/22/25 Range/Units 15:29 WBC 9.5 (4.8-10.8) X10*3/uL RBC 4.62 (4.60-5.80) X10*6/uL Hgb 15.2 (14.0-18.0) g/dl Hct 43.8 (42.0-52.0) % MCV 94.8 (80.0-98.0) fL MCH 32.9 (27.0-33.0) pg MCHC 34.7 (31.0-36.0) g/dl RDW 13.4 (11.0-16.0) % Plt Count 139 L (160-400) X10*3/uL MPV 10.5 (9.4-12.4) fL Immature Gran % (Auto) 0.3 (0.0-0.4) % Neut % (Auto) 79.4 H (45-73) % Lymph % (Auto) 7.9 L (20-40) % [place] % (Auto) 10.4 (2-11) % Eos % (Auto) 1.6 (0-4) % Baso % (Auto) 0.4 (0-2) % Lymph # (Auto) 0.8 L (1.2-4.9) X10*3/uL [place] # (Auto) 1.0 (0.1-1.2) X10*3/uL Eos # (Auto) 0.2 (0.0-0.4) X10*3/uL Baso # (Auto) 0.0 (0.0-0.2) X10*3/uL Abs Immat Gran (auto) 0.03 (0.00-0.03) X10*3/uL Absolute Neuts (auto) 7.6 (2.0-8.3) x10*3/uL Absolute Nucleated RBC 0.000 (0.0-0.012) X10*3/uL Nucleated RBC % (auto) 0.0 (0.0-0.2) /100WBC ESR 19 (1-20) MM/HR Sodium 140 (135-145) mmol/L Potassium 3.9 (3.3-5.1) mmol/L Chloride 106 (96-108) mmol/L Carbon Dioxide 23 (22-29) mmol/L Anion Gap 15 (12-20) BUN 17 H (9-16) mg/dL Creatinine 0.81 (0.5-1.4) mg/dL Estim Creat Clear Calc 77.7 Estimated GFR > 60 Random Glucose 188 H (60-115) mg/dL Calcium 9.5 D (8.4-10.2) mg/dL Total Bilirubin 1.0 (0.0-1.0) mg/dL AST 32 (5-37) U/L ALT 48 H (0-40) U/L Alkaline Phosphatase 85 (39-117) U/L C-Reactive Protein 1.40 H (< or = 0.50) mg/dL Total Protein 7.8 (6.5-8.0) g/dL Albumin 4.6 (3.5-5.0) g/dL Discharge Plan Discharge Clinical Impression: Dental infection Patient Disposition: Home, Self-Care Instructions: Dental Abscess (ED) Additional Instructions: supervisor order takers your antibiotics tomorrow [facility] the only pharmacy that is open nearby Prescriptions: New amoxicillin-pot clavulanate 875-125 mg tablet 1 tab PO BID 7 Days Qty: 14 0RF No Action Jardiance 10 mg tablet 10 mg PO DAILY 90 Days Qty: 90 1RF terazosin 5 mg capsule 5 mg PO BEDTIME Qty: 90 1RF atorvastatin 20 mg tablet 20 mg PO DAILY 90 Days Qty: 90 1RF candesartan 32 mg tablet 32 mg PO DAILY 90 Days Qty: 90 0RF cholecalciferol (vitamin D3) 50 mcg (2,000 unit) capsule 50 mcg PO DAILY 90 Days Qty: 90 0RF timolol maleate 0.5 % drops 1 drp ophthalmic (eye) BID metformin 500 mg tablet extended release 24 hr 500 mg PO DAILY 90 Days Qty: 90 2RF nifedipine 30 mg tablet extended release 30 mg PO DAILY 90 Days Qty: 90 3RF sertraline 25 mg tablet 25 mg PO DAILY 90 Days Qty: 90 0RF clotrimazole-betamethasone 1-0.05 % cream 1 appl topical BID 28 Days Qty: 45 0RF Rx Instructions: Apply thin coat 2 times per day Discharge Date/Time: 03/22/25 18:02 Print Language: Trinidadian
[2025-03-22 15:35] LABS: MANUAL DIFF FLAG NO
[2025-03-22 15:44] LABS: Hematocrit 43.8 % (42.0-52.0); Hemoglobin 15.2 g/dl (14.0-18.0); Imm Gran Abs Auto 0.03 X10*3/uL (0.00-0.03); Imm Gran Pct Auto 0.3 % (0.0-0.4); Lymphocytes Absolute Auto 0.8 X10*3/uL (1.2-4.9); Mean Corpuscular HGB Conc 34.7 g/dl (31.0-36.0); Mean Corpuscular Hemoglobin 32.9 pg (27.0-33.0); Mean Corpuscular Volume 94.8 fL (80.0-98.0); NRBC Abs Auto 0.000 X10*3/uL (0.0-0.012); NRBC Pct Auto 0.0 /100WBC (0.0-0.2); Platelet Count 139 X10*3/uL (160-400); Red Blood Count 4.62 X10*6/uL (4.60-5.80); White Blood Count 9.5 X10*3/uL (4.8-10.8)
[2025-03-22 15:57] LABS: Alanine Aminotransferase 48 U/L (0-40); Albumin Level 4.6 g/dL (3.5-5.0); Alkaline Phosphatase 85 U/L (39-117); Anion Gap 15 (12-20); Aspartate Amino Transferase 32 U/L (5-37); Blood Urea Nitrogen 17 mg/dL (9-16); Calcium 9.5 mg/dL (8.4-10.2); Carbon Dioxide 23 mmol/L (22-29); Chloride 106 mmol/L (96-108); Creatinine Clr Calc Pharmacy 77.7; Estimated Glomerular Filt Rate > 60; Potassium 3.9 mmol/L (3.3-5.1); Sodium 140 mmol/L (135-145); Total Protein 7.8 g/dL (6.5-8.0)
--- OUTSIDE RECORDS SUMMARY | 2025-03-22 17:28 | XMS_ITS | Clinical Summary ---
Author Organization [facility] ity Address [address] [place] [address] Care Team Providers Care Grocery Clerk Name Role Phone Unavailable Primary Care Provider [...]
--- OUTSIDE RECORDS SUMMARY | 2025-03-22 17:28 | XMS_ITS | Clinical Summary ---
Author Organization [facility] Address [address] [place] [id number] Care Team Providers Care Clinical Studies Specialist Name Role Phone Ivonne Kinsey Unavailable [phone] Ivonne Kinsey Primary Care Provider [phone] Allergies No known active allergies Medications atorvaSTATin (LIPITOR) 20 MG tabletIndicatio ns:Operculated retinal tear of right eye Take 1 tablet (20 mg total) by mouth daily. 4 Active candesartan (ATACAND) 16 MG tabletIndicatio ns:Operculated retinal tear of right eye Take 1 tablet (16 mg total) by mouth daily. 4 Active candesartan (ATACAND) 32 MG tabletIndicatio ns:Operculated retinal tear of right eye Take 1 tablet (32 mg total) by mouth daily. 4 Active ciprofloxacin (CIPRO) 250 MG tabletIndicatio ns:Operculated retinal tear of right eye TAKE 1 TABLET BY MOUTH TWICE A DAY FOR 5 DAYS 4 Active JARDIANCE 10 mg Tab tabletIndicatio ns:Operculated retinal tear of right eye Take 1 tablet (10 mg total) by mouth daily. 4 Active ibuprofen (MOTRIN) 600 MG tabletIndicatio ns:Operculated retinal tear of right eye Take 1 tablet (600 mg total) by mouth 4 times a day as needed. 3 Active metFORMIN ER 500 MG 24 hr tabletIndicatio ns:Operculated retinal tear of right eye 4 Active NIFEdipine ER (ADALAT CC) 30 MG ER tabletIndicatio ns:Operculated retinal tear of right eye Take 1 tablet (30 mg total) by mouth daily. 4 Active tamsulosin (FLOMAX) 0.4 mg cap 24 hr capsuleIndicati ons:Operculated retinal tear of right eye TAKE 2 CAPSULES BY MOUTH EVERY DAY 1/2 HOUR AFTER THE LAST MEAL OF THE DAY 4 Active sertraline (ZOLOFT) 25 MG tabletIndicatio ns:Operculated retinal tear of right eye Take 1 tablet (25 mg total) by mouth daily. 4 Active aspirin 81 MG EC tablet TAKE 1 TABLET BY MOUTH EVERY DAY 90 tablet 1 5 Active timolol (TIMOPTIC) 0.5 % ophthalmic solution Administer 1 drop to both eyes in the morning and 1 drop before bedtime. 5 Active Active Problems Problem Noted Date Diagnosed Date Operculated retinal tear of right eye 12/24/2023 Assessment & Plan (12/29/2024 10:51 AM EDT): - Small operculated tear temporal mid-periphery OD, with light laser scars barricading, no fluid. - Observe. - Return to [facility] for 1 yr, OCT, [facility]. Assessment & Plan (12/24/2023 11:35 AM EDT): - Small operculated tear temporal mid-periphery OD, with light laser scars barricading, no fluid. - Observe at this time. - Return in 1 year for monitoring. Pseudophakia of both eyes 12/24/2023 Overview (12/24/2023): - Good position, excellent central vision. - Observe. Assessment & Plan (12/29/2024 10:31 AM EDT): - Good position, excellent central vision. - Observe. History of CVA (cerebrovascular accident) 2023 Assessment & Plan (12/29/2024 10:54 AM EDT): - Per Dr. Cash, Mr. Kameron Su' MRI 12/14/23 is in keeping with a remote infarct as the source of his visual field loss in the right hemifield. - Stroke risk prevention, due to see in stroke clinic for longitudinal follow- up. Assessment & Plan (12/24/2023 11:34 AM EDT): - Per Dr. Cash, Mr. Kameron Su' MRI 12/14/23 is in keeping with a remote infarct as the source of his visual field loss in the right hemifield. - Stroke risk prevention, due to see in stroke clinic for longitudinal follow- up. - Message sent to Dr. Cash and Ivonne Ascencio. PVD (posterior vitreous detachment), both eyes 0 12/24/2023 Overview (12/24/2023): - Retinal detachment signs and symptoms discussed with patient. Any increase in flashes or floaters, sudden onset of new floaters or a shadow in vision should be reported immediately. Patient was instructed to call our service immediately. Patient verbalized understanding. Encounters Date Type Department Care Team Description 12/29/2024 9:40 AM EDT Office Visit [facility] Ophthalmology [address] [place] [address] Preethi Ashby MD Operculated retinal tear of right eye (Primary Dx); Pseudophakia of both eyes; History of CVA (cerebrovascular accident) from Last 3 Months Social History Tobacco Use Types Packs/Day Years Used Date Smoking Tobacco: Never Smokeless Tobacco: Never Tobacco Cessation:Counseling Given: Not Answered Alcohol Use Standard Drinks/Week Comments Never 0 (1 standard drink = 0.6 oz pur e alcohol) Sex and Gender Information Value Date Recorded Sex Assigned at Male 11/03/2023 8:29 AM EDT Legal Sex Male 1:34 PM EST Gender Identity Male 11/03/2023 8:29 AM EDT Sexual Orientation Not on file Last Filed Vital Signs Vital Sign Reading Time Taken Comments Blood Pressure 138/79 01/06/2024 1:34 PM EDT Pulse 77 01/06/2024 1:34 PM EDT Temperature - - Respiratory Rate - - Oxygen Saturation 95% 01/06/2024 1:34 PM EDT Inhaled Oxygen Concentration - - Weight - - Height - - Body Mass Index - - Plan of Treatment Health Maintenance Due Date Last Done Comments Depression Screening 1957 Hepatitis C Screening 09/12/1963 Zoster Vaccine (1 of 2) 09/12/1997 Lipid Panel 05/15/2024 05/15/2023 COVID-19 Vaccine (1 - 2024-2 6 season) 2024 Influenza Vaccine (#1) 2024 12/10/2022 Blood Pressure 01/05/2025 01/06/2024 DTaP,Tdap,and Td Vaccines (2 - Td or Tdap) 08/08/2032 08/08/2022 Pneumococcal Vaccine: 50+ Years Completed Meningococcal B Vaccines Aged Out No longer eligible based on patient's age to complete this topic Meningococcal Vaccines Aged Out No lo nger eligible based on patient's age to complete this topic Procedures Procedure Name Priority Date/Time Associated Diagnosis Comments OPTOS FUNDUS PHOTOGRAPHY - OU - BOTH EYES Routine 12/29/2024 10:02 AM EDT Operculated retinal tear of right eye OCT, RETINA - OU - BOTH EYES Routine 12/29/2024 10:02 AM EDT Operculated retinal tear of right eye LDL (MEASURED (CONVERSION) Routine 05/15/2023 2:56 PM EST from Last 3 Months or Most Recently Relevant to Health Maintenance Results * OPTOS Fundus Photography - OU - Both eyes (12/29/2024 10:02 AM EDT) Anatomical Region Laterality Modality Head Bilateral Fundus Photograp hy Narrative 12/29/2024 10:49 AM EDT Right Eye Progression has been stable. Left Eye Progression has been stable. Notes OD: Temporal mid-peripheral tear, operculated, laser treated OS: Pigmentary changes peripheral, nasal hypopigmented patch Preethi Ashby MD OPHTHALMOLOGY SERVICES ORDERABLE S Final Result * OCT, Retina - OU - Both Eyes (12/29/2024 10:02 AM EDT) Anatomical Region Laterality Modality Head Bilateral Optical Coherenc e Tomography Narrative 12/29/2024 10:49 AM EDT Scan quality/reliability Right Eye View was clear. Quality: good. Left Eye View was clear. Quality: good. Notes OD: Good macular contour OS: Good macular contour us Preethi Ashby MD OPHTHALMOLOGY SERVICES ORDERABLE S Final Result * LDL (MEASURED (CONVERSION) (05/15/2023 2:56 PM EST) LDL Cholesterol 68 0.000 - 129.000 mg/dL CONVERSION FROM [facility] 05/15/2023 2:56 PM EST 05/15/2023 3:51 PM EST Giuseppe Cash MD LAB BLOOD ORDERABLES Final R esult CONVERSION FROM [facility] from Last 3 Months or Most Recently Relevant to Health Maintenance Insurance [employer] [id number] [employer] [id number] Care Teams Clinical Studies Specialist Relationship Specialty Start Date End Date Ivonne Kinsey [address] [id number] PCP - Insurance Assigned PCP 05/15/23 Ivonne Kinsey [address] [id number] PCP - General 05/13/23
== END 2025-03-22 18:02 | disposition home or self-care (01) ==
PROVIDERS: Registered Nurse Emergency; Emergency Provider Emergency Medicine; PCP Internal Medicine
DX: K04.7 Periapical abscess without sinus (principal); K08.89 Other specified disorders of teeth and supporting structures; E11.9 Type 2 diabetes mellitus without complications; I10 Essential (primary) hypertension; E78.5 Hyperlipidemia, unspecified; Z79.84 Long term (current) use of oral hypoglycemic drugs; Z79.02 Long term (current) use of antithrombotics/antiplatelets; Z79.899 Other long term (current) drug therapy
CPT/HCPCS: 36415; 80053; 85025; 85652; 86140; 99281; 99283